=== PATIENT | male | born 1935 | race Caucasian/White ===

== ENCOUNTER 2017-11-28 19:14 | Inpatient (IN) | payer MEDICARE, OTHER ==
[~2017-11-28 19:14] MED LIST: ISOVUE-370 76%-LOCM 1 ML ONE; PHENYLEPHRINE-NS 100 MCG/ML 10 ML SYRINGE ONE
[2017-11-28] MEDS ORDERED: Succinylcholine Chloride 20 MG/ML 10 ml SYRINGE FS ONE (19:15)
[2017-11-28 19:28] LABS: #Eosinphils 0.3 thou/uL (0.0-0.7); #Lymphocytes 3.6 thou/uL (1.20-3.40); #Monocytes 0.9 thou/uL (0.11-0.59); #Neutrophils 10.1 thou/uL (1.40-6.50); %Basophils 0.1 % (0.0-1.0); %Eosinophils 1.8 % (0.0-10.0); %Lymphocytes 24.4 % (21.0-51.0); %Monocytes 6.1 % (0.0-10.0); %Neutrophils 67.6 % (42.0-75.0); Hemoglobin 13.1 g/dL (14.0-18.0); Mean Corpuscular HGB CONC 32.2 g/dL (32.0-36.0); Mean Corpuscular Volume 99.5 fl (80.0-94.0); Mean Platelet Volume 6.4 fL (7.4-10.4); Platelet Count 312 thou/uL (130-400); RBC Distribution Width 14.2 % (11.5-14.5); Red Blood Cell (RBC) Count 4.09 mill/uL (4.70-6.10)
[2017-11-28 19:35] LABS: INR-International Normal Ratio 1.2; PTT 31.6 SEC (22.9-36.1)
[2017-11-28 19:41] LABS: ALT (SGPT) 98 U/L (8-55); AST (SGOT) 254 U/L (5-34); Alkaline Phosphatase 90 U/L (40-150); Anion Gap 12 mmol/L (10-20); BUN (Urea Nitrogen) 30 mg/dL (8.4-25.7); Bilirubin, Total 0.4 mg/dL (0.2-1.2); Calc. Creatinine Clearance 0 mL/min (70-130); Carbon Dioxide 24 mmol/L (23-31); Chloride 104 mmol/L (98-107); Estimated GFR-MDRD 50; Globulin 3.1 g/dL (2.4-3.5); Glucose 133 mg/dL (83-110); Potassium 4.7 mmol/L (3.5-5.1); Protein, Total 7.1 g/dL (5.8-8.1); Sodium 135 mmol/L (136-145)
[2017-11-28] MEDS ORDERED: Fentanyl 100 MCG/2 ML VIAL ONE ×3 (19:41→22:27)
[2017-11-28] MEDS ORDERED: Propofol 1,000 MG/100 ML VIAL IV ONE (19:41)
[2017-11-28 20:02] LABS: Bilirubin Negative (Negative); Blood, Urine Trace (Negative); Clarity CLEAR (Clear); Glucose, Urine (Dipstick) Negative (Negative); Leukocyte Negative (Negative); Nitrite Negative (Negative); Protein, Urine (Dipstick) Negative (Neg-Trace); Specific Gravity, Urine 1.007 (1.002-1.036); Urobilinogen 0.2 mg/dL (0.2-1.0)
[2017-11-28 20:04] LABS: Bacteria/HPF None Seen HPF (None Seen); Hyaline Casts/LPF 0-3 HYALINE CAST LPF (0-3 Hyaline); RBC/HPF 0-3 HPF (0-3); Squamous Epithelial 0-3 HPF (0-3); WBC/HPF 0-3 HPF (0-3)
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
[2017-11-28 20:26] LABS: Actual Bicarbonate (HCO3a) 23.7 mEq/L (22-26); Base Excess (BEa) -5.1 mEq/L (0 (+/-) 2.5); Calcium, Ionized 1.1 mmol/L (1.12-1.30); Hemoglobin (Hb) 11.5 g/dL (14.0-18.0)
[2017-11-28 20:30] LABS: CO2 Tension 63.4 mmHg (35.0-45.0); O2 Tension (PaO2) 542.9 mmHg (80.0-100.0); pH, Arterial 7.19 (7.35-7.45)
[2017-11-28 20:32] LABS: Analyzer IN Cardio ER; Puncture Site LR
[2017-11-28] MEDS ORDERED: CEFAZOLIN/Water 2 GM/20 ML SYRINGE ONE (21:03)
[2017-11-28] MEDS ORDERED: Calcium Chloride 1 GM/10 ML Abboject SYRINGE ONE (21:12)
[2017-11-28] MEDS ORDERED: Sodium Bicarb 50 MEQ/50 ML Abboject 8.4% SYRINGE ONE (21:12)
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
[2017-11-28 21:36] LABS: Actual Bicarbonate (HCO3a) 23.2 mEq/L (22-26); Base Excess (BEa) -2.5 mEq/L (0 (+/-) 2.5); CO2 Tension 44.2 mmHg (35.0-45.0); Calcium, Ionized 1.6 mmol/L (1.12-1.30); Hematocrit-ABG 34.7 % (42.0-52.0); Hemoglobin (Hb) 11.2 g/dL (14.0-18.0); O2 Tension (PaO2) 152.7 mmHg (80.0-100.0); pH, Arterial 7.34 (7.35-7.45)
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
[2017-11-28 21:38] LABS: Analyzer IN Cardio ER; Puncture Site LR
--- NOTE | 2017-11-28 21:40 | RAD ---
AP VIEW OF THE CHEST 11/28/17 INDICATION: Chest tube placement. COMPARISON: Prior exam dated 11/28/17. FINDINGS: ET tube tip is unchanged. There are bilateral chest tubes in place. There is a small residual right s ided pneumothorax. Tiny left apical pneumothorax persists. Chronic lung changes are similar. There ar e moderately displaced right 5th through 7th rib fractures. IMPRESSION: 1. Bilateral chest tubes. 2. Small residual bilateral pneumothoraces. 3. Right anterolateral 5th through 7th rib fractures. 4. Intubation. POS: [facility]
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
[2017-11-28] MEDS ORDERED: Sodium Chloride 0.9% 30 ML ONE ×2 (22:05→23:35)
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
[2017-11-28] MEDS ORDERED: Bacitracin Zinc Ointment 30 gm TUBE ONE (22:28)
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
[2017-11-28] MEDS ORDERED: Midazolam HCl 2 mg/2 ml Vial ONE (23:56)
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
[2017-11-29] MEDS ORDERED: HumaLOG 300 UNITS/3 ML VIAL SC PRN (00:52)
[2017-11-29] MEDS ORDERED: Ondansetron ODT 4 MG TAB PO PRN (00:52)
[2017-11-29] MEDS ORDERED: Dextrose 50% Abboject 50 ML SYRINGE SLOW IVP PRN (00:52)
[2017-11-29] MEDS ORDERED: Fentanyl 20 MCG/ML 250 ML IVPB SCH (00:52)
[2017-11-29] MEDS ORDERED: Promethazine HCl 25 MG/ML VIAL IM PRN (00:52)
[2017-11-29] MEDS ORDERED: CEFAZOLIN 1 GM in Sodium Chloride 0.9% 100 ML IVPB SCH (00:52)
[2017-11-29] MEDS ORDERED: Dextrose 5% in Water 1,000 ML IV PRN (00:52)
[2017-11-29] MEDS ORDERED: Ondansetron HCl/PF 4 MG/2 ML Vial IVP PRN (00:52)
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
[2017-11-29] MEDS ORDERED: Hydrocortisone Sod Succ/PF 100 mg/2 ml Vial IVP SCH (01:15)
[2017-11-29] MEDS ORDERED: Famotidine/PF 20 mg/2ml Vial SLOW IVP SCH (01:15)
[2017-11-29] MEDS ORDERED: Midazolam HCl 2 mg/2 ml Vial ONE (02:17)
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
[2017-11-29] MEDS ORDERED: PHENYLEPHRINE-NS 100 MCG/ML 10 ML SYRINGE ONE (02:23)
[2017-11-29] MEDS ORDERED: Hetastarch 6% 500 ML 500 ML ONE (02:28)
[2017-11-29] MEDS: Sodium Chloride 0.9% 1,000 ML IV SCH ×3 (03:05→20:41)
[2017-11-29] MEDS: fentaNYL Citrate/PF 2,000 MCG in Sodium Chloride 0.9% 60 ML IV SCH (03:21)
[2017-11-29] MEDS: Midazolam HCl 2 mg/2 ml Vial SLOW IVP PRN ×2 (03:31→19:27)
[2017-11-29 03:36] LABS: Actual Bicarbonate (HCO3a) 24.9 mEq/L (22-26); Base Excess (BEa) -4.1 mEq/L (0 (+/-) 2.5); Calcium, Ionized 1.4 mmol/L (1.12-1.30); Hematocrit-ABG 36.2 % (42.0-52.0); Hemoglobin (Hb) 11.2 g/dL (14.0-18.0)
[2017-11-29 03:43] LABS: Hemoglobin 11.2 g/dL (14.0-18.0); Platelet Count 151 thou/uL (130-400)
[2017-11-29 03:50] LABS: Anion Gap 11 mmol/L (10-20); BUN (Urea Nitrogen) 29 mg/dL (8.4-25.7); Calc. Creatinine Clearance 0 mL/min (70-130); Calcium 9.1 mg/dL (7.8-10.44); Carbon Dioxide 25 mmol/L (23-31); Chloride 106 mmol/L (98-107); Estimated GFR-MDRD 52; Glucose 130 mg/dL (83-110); Magnesium 1.7 mg/dL (1.6-2.6); Phosphorus 5.3 mg/dL (2.3-4.7); Potassium 4.7 mmol/L (3.5-5.1); Sodium 137 mmol/L (136-145)
[2017-11-29 03:56] LABS: CO2 Tension 66.7 mmHg (35.0-45.0); O2 Tension (PaO2) 548.1 mmHg (80.0-100.0); Puncture Site LBRACH; pH, Arterial 7.19 (7.35-7.45)
[2017-11-29 03:57] LABS: ALV-art Gradient 81.525 (0-20)
[2017-11-29] MEDS ORDERED: Sodium Chloride 0.9% 500 ML IV SCH ×2 (04:45→16:15)
[2017-11-29] MEDS: CEFAZOLIN 1 GM, Syringe 2.5 ML in Sterile Water 7.5 ML SLOW IVP SCH ×3 (04:48→20:32)
[2017-11-29] MEDS ORDERED: CEFAZOLIN/Water 2 GM/20 ML SYRINGE SLOW IVP SCH (05:00)
[2017-11-29] MEDS: Hydrocortisone Sod Succ/PF 100 mg/2 ml Vial IVP SCH ×4 (06:41→23:24)
[2017-11-29 07:12] LABS: Actual Bicarbonate (HCO3a) 22.8 mEq/L (22-26); Base Excess (BEa) -3.3 mEq/L (0 (+/-) 2.5); CO2 Tension 45.8 mmHg (35.0-45.0); Calcium, Ionized 1.3 mmol/L (1.12-1.30); Hematocrit-ABG 30.5 % (42.0-52.0); Hemoglobin (Hb) 9.3 g/dL (14.0-18.0); O2 Tension (PaO2) 127.9 mmHg (80.0-100.0); pH, Arterial 7.31 (7.35-7.45)
[2017-11-29 07:21] LABS: Puncture Site LBA
--- NOTE | 2017-11-29 08:40 | RAD ---
PORTABLE CHEST ONE VIEW: 11/29/2017 3:05 a.m. HISTORY: Chest tube placement. Respiratory failure. COMPARISON: Exam from the previous day. FINDINGS: Endotracheal tube, nasogastric tube, and bilateral chest tubes are again seen. Right-sided fifth thr ough seventh rib fractures are again noted. No definite pneumothorax is seen. There are mild bibasi lar infiltrates. POS: [facility]
--- NOTE | 2017-11-29 09:16 | RAD ---
RIGHT WRIST: FINDINGS: Five spot fluoroscopic intraoperative images of the right wrist demonstrate pinning of the distal rad ius and the carpal bones (capitate, scaphoid, lunate, triquetral, and pisiform). POS: [facility]
--- NOTE | 2017-11-29 09:17 | RAD ---
PORTABLE RIGHT ELBOW TWO VIEWS: FINDINGS: A cast is placed, which obscures bony detail. No definite displaced fracture or dislocation is seen. Subtle fractures may be missed on the study. POS: [facility]
--- NOTE | 2017-11-29 09:17 | RAD ---
LEFT ELBOW TWO VIEWS: HISTORY: Evaluate for fracture. FINDINGS: Soft tissue swelling is present posteriorly. Frontal view is suboptimal. No definite displaced frac ture or dislocation is seen. POS: [facility]
[2017-11-29 10:09] LABS: Hemoglobin 9.3 g/dL (14.0-18.0); Platelet Count 170 thou/uL (130-400)
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
[2017-11-29] MEDS: Acetaminophen 1,000 MG in Premix Bag 1 BAG IVPB SCH ×3 (12:07→23:24)
--- NOTE | 2017-11-29 13:16 | RAD ---
RADIOGRAPH CHEST 1 VIEW: Date: 11/29/2017 Time: 12:14 p.m. HISTORY: An 82-year-old male status post central line placement. COMPARISON: 11/29/2017 at 3:04 a.m. FINDINGS: There is a new right subclavian central vascular catheter with the distal tip overlying the mid to lo wer portion of the SVC. This is a supine image, which would be insensitive for pneumothorax detectio n. The bilateral chest tubes remain. The previously described bilateral pulmonary densities remain. Endotracheal tube and NG tube remain. IMPRESSION: 1. Interval placement of right-sided central venous catheter. 2. No other interval change. GRISEL [] POS: [facility]
[2017-11-29] MEDS ORDERED: Norepinephrine 8 MG/0.9% NS 0 ML ONE (13:17)
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
[2017-11-29 14:46] LABS: Platelet Count 134 thou/uL (130-400)
[2017-11-29] MEDS ORDERED: Calcium Chloride 1 GM/10 ML Abboject SYRINGE IVP SCH (15:30)
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
[2017-11-29] MEDS ORDERED: Sodium Chloride 0.9% 500 ML IVPB SCH ×2 (20:15→20:30)
[2017-11-29] MEDS: Famotidine/PF 20 mg/2ml Vial SLOW IVP SCH (20:28)
[2017-11-29 21:34] LABS: #Lymphocytes 0.4 thou/uL (1.20-3.40); #Monocytes 0.6 thou/uL (0.11-0.59); %Basophils 0.3 % (0.0-1.0); %Eosinophils 0.1 % (0.0-10.0); %Lymphocytes 6.3 % (21.0-51.0); %Neutrophils 84.4 % (42.0-75.0); Hemoglobin 8.3 g/dL (14.0-18.0); Mean Corpuscular HGB CONC 33.5 g/dL (32.0-36.0); Mean Corpuscular Hemoglobin 32.4 pg (27.0-31.0); Mean Corpuscular Volume 96.6 fl (80.0-94.0); Mean Platelet Volume 6.7 fL (7.4-10.4); Platelet Count 129 thou/uL (130-400); RBC Distribution Width 15.8 % (11.5-14.5); Red Blood Cell (RBC) Count 2.57 mill/uL (4.70-6.10); White Blood Cell (WBC) Count 7.1 thou/uL (4.8-10.8)
[2017-11-30] MEDS: fentaNYL Citrate/PF 2,000 MCG in Sodium Chloride 0.9% 60 ML IV SCH (00:10)
[2017-11-30] MEDS: CEFAZOLIN 1 GM, Syringe 2.5 ML in Sterile Water 7.5 ML SLOW IVP SCH ×3 (05:36→20:20)
[2017-11-30] MEDS: Hydrocortisone Sod Succ/PF 100 mg/2 ml Vial IVP SCH ×4 (05:37→23:01)
[2017-11-30] MEDS: Acetaminophen 1,000 MG in Premix Bag 1 BAG IVPB SCH ×2 (05:37→12:27)
[2017-11-30] MEDS: Sodium Chloride 0.9% 1,000 ML IV SCH ×3 (05:45→22:53)
[2017-11-30] MEDS ORDERED: Midazolam HCl 2 mg/2 ml Vial ONE (08:02)
[2017-11-30 08:31] LABS: #Lymphocytes 0.7 thou/uL (1.20-3.40); #Monocytes 0.7 thou/uL (0.11-0.59); #Neutrophils 5.1 thou/uL (1.40-6.50); %Basophils 0.1 % (0.0-1.0); %Eosinophils 0.2 % (0.0-10.0); %Lymphocytes 10.3 % (21.0-51.0); %Monocytes 10.8 % (0.0-10.0); %Neutrophils 78.7 % (42.0-75.0); Hemoglobin 8.1 g/dL (14.0-18.0); Mean Corpuscular HGB CONC 31.3 g/dL (32.0-36.0); Mean Corpuscular Hemoglobin 30.3 pg (27.0-31.0); Mean Corpuscular Volume 96.8 fl (80.0-94.0); Mean Platelet Volume 7.1 fL (7.4-10.4); Platelet Count 133 thou/uL (130-400); RBC Distribution Width 15.9 % (11.5-14.5); Red Blood Cell (RBC) Count 2.67 mill/uL (4.70-6.10); White Blood Cell (WBC) Count 6.5 thou/uL (4.8-10.8)
[2017-11-30 08:44] LABS: Anion Gap 10 mmol/L (10-20); BUN (Urea Nitrogen) 24 mg/dL (8.4-25.7); Calc. Creatinine Clearance 64 mL/min (70-130); Calcium 8.3 mg/dL (7.8-10.44); Carbon Dioxide 22 mmol/L (23-31); Chloride 112 mmol/L (98-107); Estimated GFR-MDRD 61; Glucose 126 mg/dL (83-110); Sodium 140 mmol/L (136-145)
--- NOTE | 2017-11-30 08:54 | RAD ---
PORTABLE CHEST 1 VIEW: DATE: 11/30/17. TIME: 4:38 a.m. HISTORY: Respiratory failure. FINDINGS: Increased density was seen in the lower lung cordova since the previous day's exam. The remainder of the exam is otherwise stable. POS: [facility]
[2017-11-30] MEDS ORDERED: Albumin 5% 500 ML ONE (09:35)
[2017-11-30] MEDS ORDERED: Bacitracin Zinc Ointment 30 gm TUBE ONE (10:24)
[2017-11-30] MEDS ORDERED: Fentanyl 100 MCG/2 ML VIAL ONE (10:32)
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
--- NOTE | 2017-11-30 11:39 | RAD ---
PORTABLE CHEST 1 VIEW: DATE: 11/30/17. TIME: 10:57 a.m. HISTORY: Respiratory failure. FINDINGS/IMPRESSION: Comparison is made to the exam of 4:38 a.m. from the same date. Line and tube placements are unchanged in position. The heart is enlarged. There are bibasilar infi ltrates and accompanying probable small effusions. No pneumothoraces are seen. POS: [facility]
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
[2017-11-30] MEDS ORDERED: Vecuronium 10 MG VIAL ONE (12:15)
[2017-11-30] MEDS: Midazolam HCl 2 mg/2 ml Vial SLOW IVP PRN ×2 (12:25→23:00)
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
--- NOTE | 2017-11-30 17:49 | OP ---
DATE OF PROCEDURE: 11/30/2017 PREOPERATIVE DIAGNOSES: 1. Right open injuries only to his digit, small finger, ring finger metacarpophalangeal joint, long finger metacarpophalangeal joint, and proximal phalangeal joint. 2. Complex transscaphoid lunate transstyloid fracture dislocation. 3. On the right and on the left, multiple small punctate lesions from glass with a small avulsion of f the fracture of the hemibody with no subluxations. POSTOPERATIVE DIAGNOSES: 1. Right open injuries only to his digit, small finger, ring finger metacarpophalangeal joint, long finger metacarpophalangeal joint, and proximal phalangeal joint. 2. Complex transscaphoid lunate transstyloid fracture dislocation. 3. On the right and on the left, multiple small punctate lesions from glass with a small avulsion of f the fracture of the hemibody with no subluxations. FINDINGS: 1. Cutaneous vasoconstriction again seen at both upper extremities and the left lower extremity of t he patient secondary to intraoperative room hypothermia. 2. No infection, abscess, or hematoma seen at the digit wounds or his right wrist and no such findin gs at the left upper extremity. PROCEDURES PERFORMED: Left upper extremity: 1. Dressing change on anesthesia. 2. Application of a splint ulnar gutter and close treatment of hamate fracture. On the right side: 1. Dressing change on anesthesia. 2. Application of long arm splint. DESCRIPTION OF PROCEDURE: After successful general endotracheal anesthesia, we transferred the patie nt onto the fracture table for his intramedullary tu and before the tu we changed the dressing on t he left side and applied an ulnar gutter splint with the PIP joint of the small and ring involved wit h the other digits free. Then, after the procedure, we changed the dressing and sterile conditions on the right side, placed A daptic, bacitracin, 4x4's, Kerlix, and then another sugar tong splint on the wound, and the wrist was stable grossly. I placed him in slight palmar flexion approximately 15 degrees with the digits cove red with the bulky hand dressing. He has some cutaneous vasoconstriction initially, but once his rothman d warmed and we left the cold intraoperative environment, his digits became pink with normal color an d capillary refill in the Intensive Care Unit.
[2017-11-30 18:14] LABS: Actual Bicarbonate (HCO3a) 20.5 mEq/L (22-26); Base Excess (BEa) -4.5 mEq/L (0 (+/-) 2.5); CO2 Tension 36.6 mmHg (35.0-45.0); Calcium, Ionized 1.1 mmol/L (1.12-1.30); Hematocrit-ABG 20.5 % (42.0-52.0); Hemoglobin (Hb) 6.8 g/dL (14.0-18.0); O2 Tension (PaO2) 93.2 mmHg (80.0-100.0); pH, Arterial 7.37 (7.35-7.45)
[2017-11-30 18:16] LABS: Puncture Site LINE
[2017-11-30] MEDS ORDERED: Calcium Chloride 1 GM/10 ML Abboject SYRINGE IVP SCH (19:15)
[2017-11-30] MEDS: Famotidine/PF 20 mg/2ml Vial SLOW IVP SCH (20:20)
[2017-12-01] MEDS: fentaNYL Citrate/PF 2,000 MCG in Sodium Chloride 0.9% 60 ML IV SCH ×2 (00:15→15:10)
[2017-12-01 05:24] LABS: #Lymphocytes 0.7 thou/uL (1.20-3.40); #Monocytes 0.8 thou/uL (0.11-0.59); #Neutrophils 7.7 thou/uL (1.40-6.50); %Basophils 0.1 % (0.0-1.0); %Eosinophils 0.2 % (0.0-10.0); %Lymphocytes 7.2 % (21.0-51.0); %Monocytes 8.3 % (0.0-10.0); %Neutrophils 84.1 % (42.0-75.0); Hemoglobin 8.5 g/dL (14.0-18.0); Mean Corpuscular Volume 96.9 fl (80.0-94.0); Mean Platelet Volume 6.7 fL (7.4-10.4); Platelet Count 163 thou/uL (130-400); RBC Distribution Width 15.3 % (11.5-14.5); Red Blood Cell (RBC) Count 2.75 mill/uL (4.70-6.10); White Blood Cell (WBC) Count 9.2 thou/uL (4.8-10.8)
[2017-12-01 05:37] LABS: Anion Gap 10 mmol/L (10-20); BUN (Urea Nitrogen) 19 mg/dL (8.4-25.7); Calc. Creatinine Clearance 75 mL/min (70-130); Calcium 8.5 mg/dL (7.8-10.44); Carbon Dioxide 22 mmol/L (23-31); Chloride 113 mmol/L (98-107); Estimated GFR-MDRD 74; Glucose 104 mg/dL (83-110); Magnesium 1.9 mg/dL (1.6-2.6); Potassium 4.2 mmol/L (3.5-5.1); Sodium 141 mmol/L (136-145)
[2017-12-01] MEDS: CEFAZOLIN 1 GM, Syringe 2.5 ML in Sterile Water 7.5 ML SLOW IVP SCH ×3 (05:45→21:51)
[2017-12-01] MEDS: Sodium Chloride 0.9% 1,000 ML IV SCH ×2 (06:12→22:30)
[2017-12-01 06:34] LABS: ALV-art Gradient 157.825 (0-20); Actual Bicarbonate (HCO3a) 20.5 mEq/L (22-26); Base Excess (BEa) -4.9 mEq/L (0 (+/-) 2.5); CO2 Tension 39.1 mmHg (35.0-45.0); Calcium, Ionized 1.2 mmol/L (1.12-1.30); Hematocrit-ABG 22.9 % (42.0-52.0); Hemoglobin (Hb) 7.6 g/dL (14.0-18.0); O2 Tension (PaO2) 83.7 mmHg (80.0-100.0); Puncture Site ALINE; pH, Arterial 7.34 (7.35-7.45)
[2017-12-01] MEDS: Hydrocortisone Sod Succ/PF 100 mg/2 ml Vial IVP SCH ×3 (06:48→18:52)
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
[2017-12-01] MEDS: Propofol 1,000 MG/100 ML VIAL IV PRN (13:12)
--- NOTE | 2017-12-01 14:00 | RAD ---
PORTABLE CHEST 1 VIEW: DATE: 12/01/17. TIME: 4:45 a.m. HISTORY: Respiratory failure. FINDINGS: Comparison is made with the exam of previous day. Line and tube placements are unchanged in position . Increased airspace opacities are seen in the lower lung cordova with accompanying effusions. POS: [facility]
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
[2017-12-01] MEDS: Famotidine/PF 20 mg/2ml Vial SLOW IVP SCH (21:51)
[2017-12-02] MEDS: Hydrocortisone Sod Succ/PF 100 mg/2 ml Vial IVP SCH ×4 (00:51→18:00)
[2017-12-02] MEDS: Propofol 1,000 MG/100 ML VIAL IV PRN ×2 (04:13→21:31)
[2017-12-02] MEDS: CEFAZOLIN 1 GM, Syringe 2.5 ML in Sterile Water 7.5 ML SLOW IVP SCH ×3 (04:14→21:44)
[2017-12-02 04:32] LABS: #Lymphocytes 0.8 thou/uL (1.20-3.40); #Monocytes 0.7 thou/uL (0.11-0.59); #Neutrophils 6.7 thou/uL (1.40-6.50); %Eosinophils 0.3 % (0.0-10.0); %Lymphocytes 9.3 % (21.0-51.0); %Monocytes 8.7 % (0.0-10.0); %Neutrophils 81.6 % (42.0-75.0); Mean Corpuscular HGB CONC 33.1 g/dL (32.0-36.0); Mean Corpuscular Hemoglobin 32.1 pg (27.0-31.0); Mean Corpuscular Volume 96.8 fl (80.0-94.0); Mean Platelet Volume 6.9 fL (7.4-10.4); Platelet Count 186 thou/uL (130-400); RBC Distribution Width 15.4 % (11.5-14.5); White Blood Cell (WBC) Count 8.3 thou/uL (4.8-10.8)
[2017-12-02 04:56] LABS: Anion Gap 10 mmol/L (10-20); BUN (Urea Nitrogen) 24 mg/dL (8.4-25.7); Calc. Creatinine Clearance 71 mL/min (70-130); Calcium 8.2 mg/dL (7.8-10.44); Carbon Dioxide 21 mmol/L (23-31); Chloride 115 mmol/L (98-107); Estimated GFR-MDRD 66; Glucose 104 mg/dL (83-110); Magnesium 2.1 mg/dL (1.6-2.6); Phosphorus 2.1 mg/dL (2.3-4.7); Potassium 4.2 mmol/L (3.5-5.1); Sodium 142 mmol/L (136-145)
[2017-12-02] MEDS: Sodium Chloride 0.9% 1,000 ML IV SCH ×3 (05:13→21:31)
--- NOTE | 2017-12-02 09:01 | RAD ---
PORTABLE FRONTAL CHEST RADIOGRAPH: Date: 12-02-2017 Comparison: 12-01-17 History: Evaluate chest tube, intubated patient. FINDINGS: Endotracheal tube terminates at the level of the clavicular heads, stable. Nasogastric tube extends i nto epigastric region. Stable right sided vascular catheter. There is dense opacity in bilateral lung bases, suggesting combination of bibasilar consolidation/col lapse and small bilateral pleural effusions. Stable inferior left sided chest tube present curling me dially, possibly kinked and unchanged. Stable right sided chest tube overlies the apex. Multiple righ t sided rib fractures are noted. IMPRESSION: No significant interval change. POS: [facility]
[2017-12-02] MEDS: fentaNYL Citrate/PF 2,000 MCG in Sodium Chloride 0.9% 60 ML IV SCH ×2 (09:55→21:31)
[2017-12-02] MEDS ORDERED: Midazolam HCl 2 mg/2 ml Vial ONE (14:07)
[2017-12-02] MEDS ORDERED: Fentanyl 100 MCG/2 ML VIAL ONE ×3 (14:08→20:24)
[2017-12-02] MEDS ORDERED: PHENYLEPHRINE-NS 100 MCG/ML 10 ML SYRINGE ONE (17:16)
[2017-12-02] MEDS ORDERED: Propofol 200 MG/20 ML VIAL ONE (17:16)
[2017-12-02] MEDS ORDERED: Sodium Bicarb 50 MEQ/50 ML Abboject 8.4% SYRINGE ONE ×2 (17:17→19:28)
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
[2017-12-02] MEDS ORDERED: Rocuronium Bromide 50 MG/5 ML VIAL ONE (17:43)
[2017-12-02] MEDS ORDERED: Bacitracin Zinc Ointment 30 gm TUBE ONE (18:25)
[2017-12-02] MEDS ORDERED: Sodium Chloride 0.9% 10 ML ONE (18:27)
[2017-12-02 19:17] LABS: Actual Bicarbonate (HCO3a) 17.8 mEq/L (22-26); Base Excess (BEa) -8.2 mEq/L (0 (+/-) 2.5); CO2 Tension 38.6 mmHg (35.0-45.0); Calcium, Ionized 1.2 mmol/L (1.12-1.30); Hematocrit-ABG 16.8 % (42.0-52.0); Hemoglobin (Hb) 5.7 g/dL (14.0-18.0); O2 Tension (PaO2) 128.3 mmHg (80.0-100.0); Puncture Site ALINE; pH, Arterial 7.28 (7.35-7.45)
[2017-12-02] MEDS ORDERED: Sodium Bicarbonate 2.4 MEQ/5 ML ONE (19:28)
[2017-12-02] MEDS ORDERED: Bupivacaine PF 0.5% 30 ML VIAL ONE (20:01)
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
[2017-12-02] MEDS: Famotidine/PF 20 mg/2ml Vial SLOW IVP SCH (21:31)
--- NOTE | 2017-12-02 21:53 | RAD ---
EXAM: INTRAOPERATIVE FLUOROSCOPY 12/02/17 HISTORY: ORIF COMPARISON: None. FINDINGS: Internal fixation hardware and fractures are noted. Fluoroscopic time is 5.1 seconds. Total dose is 0.12 mGy. IMPRESSION: Intraoperative fluoroscopy as above. POS: [facility]
[2017-12-02 21:55] LABS: Hemoglobin 8.7 g/dL (14.0-18.0)
--- NOTE | 2017-12-02 21:59 | RAD ---
EXAM: INTRAOPERATIVE FLUOROSCOPY 12/02/17 HISTORY: Fracture. COMPARISON: None. FINDINGS: Multiple K-wires and screws are identified projecting over the proximal and distal carpal rows as wel l as the distal radius. EXPOSURE: 115.2 seconds. 2.38 mGy. IMPRESSION: Intraoperative fluoroscopy as above. POS: [facility]
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
[2017-12-03] MEDS: Hydrocortisone Sod Succ/PF 100 mg/2 ml Vial IVP SCH ×4 (00:50→18:05)
[2017-12-03 05:14] LABS: #Eosinphils 0.1 thou/uL (0.0-0.7); #Lymphocytes 0.9 thou/uL (1.20-3.40); #Neutrophils 6.3 thou/uL (1.40-6.50); %Basophils 0.3 % (0.0-1.0); %Lymphocytes 11.1 % (21.0-51.0); %Monocytes 11.7 % (0.0-10.0); Hemoglobin 7.9 g/dL (14.0-18.0); Mean Corpuscular HGB CONC 32.4 g/dL (32.0-36.0); Mean Corpuscular Hemoglobin 31.6 pg (27.0-31.0); Mean Corpuscular Volume 97.5 fl (80.0-94.0); Mean Platelet Volume 6.5 fL (7.4-10.4); Platelet Count 214 thou/uL (130-400); RBC Distribution Width 15.4 % (11.5-14.5); Red Blood Cell (RBC) Count 2.48 mill/uL (4.70-6.10); White Blood Cell (WBC) Count 8.3 thou/uL (4.8-10.8)
[2017-12-03 05:22] LABS: Anion Gap 12 mmol/L (10-20); BUN (Urea Nitrogen) 28 mg/dL (8.4-25.7); Calc. Creatinine Clearance 69 mL/min (70-130); Calcium 7.9 mg/dL (7.8-10.44); Carbon Dioxide 19 mmol/L (23-31); Chloride 117 mmol/L (98-107); Estimated GFR-MDRD 62; Glucose 105 mg/dL (83-110); Magnesium 2.3 mg/dL (1.6-2.6); Potassium 4.1 mmol/L (3.5-5.1); Sodium 144 mmol/L (136-145)
[2017-12-03 05:24] LABS: Phosphorus 1.9 mg/dL (2.3-4.7)
[2017-12-03] MEDS: CEFAZOLIN 1 GM, Syringe 2.5 ML in Sterile Water 7.5 ML SLOW IVP SCH ×3 (05:40→21:20)
[2017-12-03] MEDS ORDERED: Potassium Phosphate 12 MMOL in Sodium Chloride 0.9% 100 ML IVPB SCH (06:45)
[2017-12-03] MEDS: Sodium Chloride 0.9% 1,000 ML IV SCH ×2 (07:37→21:21)
--- NOTE | 2017-12-03 08:53 | RAD ---
PORTABLE CHEST ONE VIEW: Date: 12-03-17 Time: 4:18 a.m. History: Respiratory failure. FINDINGS/IMPRESSION: No significant interval change since the previous day's exam. POS: [facility]
[2017-12-03] MEDS: Propofol 1,000 MG/100 ML VIAL IV PRN ×2 (11:31→18:11)
[2017-12-03] MEDS: fentaNYL Citrate/PF 2,000 MCG in Sodium Chloride 0.9% 60 ML IV SCH (14:06)
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
[2017-12-03] MEDS: Polyethylene Glycol 3350 17 GM Packet PER TUBE SCH (14:18)
[2017-12-03] MEDS: Acetylcysteine 10% 100 MG/ML 30 ml Vial PO SCH (18:32)
[2017-12-03] MEDS: Famotidine/PF 20 mg/2ml Vial SLOW IVP SCH (21:36)
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
[2017-12-04] MEDS: Hydrocortisone Sod Succ/PF 100 mg/2 ml Vial IVP SCH ×4 (00:28→17:41)
[2017-12-04] MEDS: Propofol 1,000 MG/100 ML VIAL IV PRN (02:44)
[2017-12-04 05:02] LABS: #Eosinphils 0.1 thou/uL (0.0-0.7); #Lymphocytes 0.8 thou/uL (1.20-3.40); #Monocytes 0.8 thou/uL (0.11-0.59); #Neutrophils 6.2 thou/uL (1.40-6.50); %Lymphocytes 9.8 % (21.0-51.0); %Monocytes 10.5 % (0.0-10.0); %Neutrophils 78.7 % (42.0-75.0); Hemoglobin 8.2 g/dL (14.0-18.0); Mean Corpuscular Hemoglobin 32.3 pg (27.0-31.0); Mean Corpuscular Volume 97.7 fl (80.0-94.0); Platelet Count 252 thou/uL (130-400); RBC Distribution Width 15.4 % (11.5-14.5); Red Blood Cell (RBC) Count 2.53 mill/uL (4.70-6.10); White Blood Cell (WBC) Count 7.9 thou/uL (4.8-10.8)
[2017-12-04 05:28] LABS: Anion Gap 9 mmol/L (10-20); BUN (Urea Nitrogen) 29 mg/dL (8.4-25.7); Calc. Creatinine Clearance 80 mL/min (70-130); Calcium 7.9 mg/dL (7.8-10.44); Carbon Dioxide 23 mmol/L (23-31); Chloride 118 mmol/L (98-107); Estimated GFR-MDRD 73; Glucose 144 mg/dL (83-110); Magnesium 2.2 mg/dL (1.6-2.6); Potassium 3.9 mmol/L (3.5-5.1); Sodium 146 mmol/L (136-145)
[2017-12-04] MEDS: CEFAZOLIN 1 GM, Syringe 2.5 ML in Sterile Water 7.5 ML SLOW IVP SCH ×3 (05:50→21:26)
[2017-12-04 06:04] LABS: Phosphorus 1.7 mg/dL (2.3-4.7)
[2017-12-04] MEDS: Sodium Chloride 0.9% 1,000 ML IV SCH (06:13)
[2017-12-04] MEDS ORDERED: Potassium Phosphate 30 MMOL in Sodium Chloride 0.9% 250 ML 250 ML IVPB SCH (07:00)
[2017-12-04] MEDS: Acetylcysteine 10% 100 MG/ML 30 ml Vial PO SCH (08:14)
[2017-12-04] MEDS ORDERED: Sodium Chloride 0.45% 1,000 ML IV SCH (08:15)
[2017-12-04] MEDS: Senokot S 8.6-50 MG TAB PO SCH ×2 (08:33→22:28)
[2017-12-04] MEDS: Polyethylene Glycol 3350 17 GM Packet PER TUBE SCH (08:33)
--- NOTE | 2017-12-04 08:39 | RAD ---
PORTABLE CHEST 1 VIEW: DATE: 12/04/17. TIME: 5:04 a.m. HISTORY: Respiratory failure. FINDINGS/IMPRESSION: No significant interval change is seen since the previous day's exam. POS: [facility]
[2017-12-04] MEDS ORDERED: Enoxaparin Sodium 40 MG/0.4 ML SYRINGE SC SCH (09:45)
[2017-12-04] MEDS: hydrALAZINE 20 MG/ML VIAL SLOW IVP PRN (10:15)
[2017-12-04] MEDS ORDERED: Fentanyl 100 MCG/2 ML VIAL ONE (11:25)
[2017-12-04] MEDS ORDERED: Furosemide 20 MG/2 ML VIAL SLOW IVP SCH ×2 (11:45→23:59)
[2017-12-04] MEDS ORDERED: Potassium Phosphate 30 MMOL in Sodium Chloride 0.9% 500 ML IVPB SCH (11:45)
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
[2017-12-04] MEDS: fentaNYL Citrate/PF 2,000 MCG in Sodium Chloride 0.9% 60 ML IV SCH (12:27)
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
--- NOTE | 2017-12-04 13:40 | RAD ---
INTRAOPERATIVE RADIOGRAPH OF RIGHT FEMUR: Date: 11-28-17 History: Right femur fracture. FINDINGS: A single coned-down radiograph overlying the right femoral shaft demonstrates a fracture which is com minuted and obliquely oriented. Partially visualized external fixator overlies the femur fracture. IMPRESSION: Intraoperative exam as detailed above. POS: [facility]
[2017-12-04] MEDS: Furosemide 20 MG/2 ML VIAL SLOW IVP SCH (14:40)
[2017-12-04] MEDS ORDERED: Acetaminophen 1,000 MG in Premix Bag 1 BAG IVPB SCH (17:30)
[2017-12-04] MEDS ORDERED: Ketorolac Tromethamine 30 MG/ML VIAL IVP SCH (17:30)
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
[2017-12-04] MEDS: Famotidine 40 MG/4 ML VIAL SLOW IVP SCH (21:27)
[2017-12-04] MEDS ORDERED: fentaNYL Citrate/PF 2,000 MCG in Sodium Chloride 0.9% 60 ML IV PRN (23:00)
[2017-12-05] MEDS: Hydrocortisone Sod Succ/PF 100 mg/2 ml Vial IVP SCH ×4 (00:18→17:56)
[2017-12-05] MEDS: Acetaminophen 1,000 MG in Premix Bag 1 BAG IVPB SCH ×4 (00:18→17:55)
[2017-12-05] MEDS: Ketorolac Tromethamine 30 MG/ML VIAL IVP SCH ×4 (00:19→17:56)
[2017-12-05] MEDS: Acetylcysteine 10% 100 MG/ML 30 ml Vial NEB SCH ×4 (01:56→18:48)
[2017-12-05 05:18] LABS: #Eosinphils 0.1 thou/uL (0.0-0.7); #Lymphocytes 0.7 thou/uL (1.20-3.40); #Monocytes 0.7 thou/uL (0.11-0.59); #Neutrophils 6.7 thou/uL (1.40-6.50); %Basophils 0.2 % (0.0-1.0); %Eosinophils 0.8 % (0.0-10.0); %Monocytes 8.9 % (0.0-10.0); %Neutrophils 81.1 % (42.0-75.0); Hemoglobin 8.6 g/dL (14.0-18.0); Mean Corpuscular HGB CONC 32.2 g/dL (32.0-36.0); Mean Corpuscular Hemoglobin 31.6 pg (27.0-31.0); Mean Platelet Volume 6.7 fL (7.4-10.4); Platelet Count 294 thou/uL (130-400); RBC Distribution Width 15.5 % (11.5-14.5); Red Blood Cell (RBC) Count 2.73 mill/uL (4.70-6.10); White Blood Cell (WBC) Count 8.2 thou/uL (4.8-10.8)
[2017-12-05 05:43] LABS: Anion Gap 12 mmol/L (10-20); BUN (Urea Nitrogen) 34 mg/dL (8.4-25.7); Calc. Creatinine Clearance 73 mL/min (70-130); Calcium 8.2 mg/dL (7.8-10.44); Carbon Dioxide 28 mmol/L (23-31); Chloride 112 mmol/L (98-107); Estimated GFR-MDRD 65; Glucose 125 mg/dL (83-110); Magnesium 2.2 mg/dL (1.6-2.6); Phosphorus 3.2 mg/dL (2.3-4.7); Potassium 4.1 mmol/L (3.5-5.1); Sodium 148 mmol/L (136-145)
[2017-12-05] MEDS: CEFAZOLIN 1 GM, Syringe 2.5 ML in Sterile Water 7.5 ML SLOW IVP SCH (05:46)
[2017-12-05] MEDS: Furosemide 20 MG/2 ML VIAL SLOW IVP SCH ×4 (05:46→21:50)
[2017-12-05] MEDS: Senokot S 8.6-50 MG TAB PO SCH ×2 (08:08→21:49)
[2017-12-05] MEDS: Polyethylene Glycol 3350 17 GM Packet PER TUBE SCH (08:08)
[2017-12-05] MEDS ORDERED: Enoxaparin Sodium 40 MG/0.4 ML SYRINGE SC SCH (09:00)
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
[2017-12-05] MEDS ORDERED: HYDROcodone/Acetaminophen 10/325 mg Tablet PO PRN (09:12)
[2017-12-05] MEDS: HYDROcodone/Acetaminophen 10/325 mg Tablet PO SCH ×4 (10:02→21:50)
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
[2017-12-05] MEDS: Ascorbic Acid 500 mg Chewable Tablet PO SCH (16:31)
[2017-12-05] MEDS: Ferrous Sulfate 325 MG TAB PO SCH (16:31)
[2017-12-05] MEDS: Famotidine 40 MG/4 ML VIAL SLOW IVP SCH (21:50)
[2017-12-06] MEDS: Ketorolac Tromethamine 30 MG/ML VIAL IVP SCH ×4 (00:54→17:55)
[2017-12-06] MEDS: Hydrocortisone Sod Succ/PF 100 mg/2 ml Vial IVP SCH ×4 (00:54→17:56)
[2017-12-06] MEDS: Acetaminophen 1,000 MG in Premix Bag 1 BAG IVPB SCH (00:56)
[2017-12-06] MEDS: HYDROcodone/Acetaminophen 10/325 mg Tablet PO SCH ×6 (01:09→22:05)
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
[2017-12-06] MEDS: Furosemide 20 MG/2 ML VIAL SLOW IVP SCH ×3 (04:42→17:55)
[2017-12-06 05:42] LABS: Anion Gap 11 mmol/L (10-20); BUN (Urea Nitrogen) 35 mg/dL (8.4-25.7); Calc. Creatinine Clearance 77 mL/min (70-130); Carbon Dioxide 28 mmol/L (23-31); Chloride 104 mmol/L (98-107); Estimated GFR-MDRD 68; Glucose 112 mg/dL (83-110); Magnesium 2.1 mg/dL (1.6-2.6); Potassium 3.8 mmol/L (3.5-5.1); Sodium 139 mmol/L (136-145)
[2017-12-06] MEDS: Ferrous Sulfate 325 MG TAB PO SCH ×2 (08:54→17:55)
[2017-12-06] MEDS: Polyethylene Glycol 3350 17 GM Packet PER TUBE SCH (08:54)
[2017-12-06] MEDS: Senokot S 8.6-50 MG TAB PO SCH ×2 (08:54→20:24)
[2017-12-06] MEDS: Ascorbic Acid 500 mg Chewable Tablet PO SCH ×2 (08:54→17:55)
[2017-12-06] MEDS: Enoxaparin Sodium 40 MG/0.4 ML SYRINGE SC SCH (08:55)
[2017-12-06] MEDS ORDERED: Potassium Chloride 40 MEQ in Sodium Chloride 0.9% 500 ML IVPB SCH (10:30)
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
[2017-12-06] MEDS: Acetylcysteine 10% 100 MG/ML 30 ml Vial NEB SCH ×3 (11:42→22:05)
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
[2017-12-06] MEDS: Famotidine 40 MG/4 ML VIAL SLOW IVP SCH (20:24)
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
[2017-12-07] MEDS: Hydrocortisone Sod Succ/PF 100 mg/2 ml Vial IVP SCH ×4 (00:47→16:57)
[2017-12-07] MEDS: Ketorolac Tromethamine 30 MG/ML VIAL IVP SCH ×4 (00:48→16:58)
[2017-12-07] MEDS: HYDROcodone/Acetaminophen 10/325 mg Tablet PO SCH ×6 (00:49→21:39)
[2017-12-07] MEDS: Furosemide 20 MG/2 ML VIAL SLOW IVP SCH (02:19)
[2017-12-07] MEDS: Acetylcysteine 10% 100 MG/ML 30 ml Vial NEB SCH ×2 (07:46→18:36)
[2017-12-07] MEDS: Ferrous Sulfate 325 MG TAB PO SCH ×2 (10:01→16:56)
[2017-12-07] MEDS: Ascorbic Acid 500 mg Chewable Tablet PO SCH ×2 (10:01→16:56)
[2017-12-07] MEDS: Polyethylene Glycol 3350 17 GM Packet PER TUBE SCH (10:02)
[2017-12-07] MEDS: Enoxaparin Sodium 40 MG/0.4 ML SYRINGE SC SCH (10:02)
[2017-12-07] MEDS: Senokot S 8.6-50 MG TAB PO SCH ×2 (10:02→21:36)
[2017-12-07] MEDS ORDERED: Furosemide 20 MG TAB PO SCH (12:00)
[2017-12-07] MEDS ORDERED: Metolazone 5 MG TAB PO SCH (16:00)
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
[2017-12-07] MEDS: Famotidine 40 MG/4 ML VIAL SLOW IVP SCH (21:36)
[2017-12-07] MEDS: Furosemide 40 MG TAB PO SCH (21:36)
[2017-12-07] MEDS ORDERED: Ketorolac Tromethamine 30 MG/ML VIAL IVP SCH (23:45)
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
[2017-12-08] MEDS: Hydrocortisone Sod Succ/PF 100 mg/2 ml Vial IVP SCH ×4 (00:19→17:18)
[2017-12-08] MEDS: Ketorolac Tromethamine 30 MG/ML VIAL IVP SCH ×2 (00:21→05:52)
[2017-12-08] MEDS: HYDROcodone/Acetaminophen 10/325 mg Tablet PO SCH ×6 (01:13→20:47)
[2017-12-08] MEDS: Furosemide 40 MG TAB PO SCH ×3 (04:27→14:45)
[2017-12-08 06:07] LABS: #Eosinphils 0.3 thou/uL (0.0-0.7); #Lymphocytes 1.2 thou/uL (1.20-3.40); #Monocytes 0.9 thou/uL (0.11-0.59); %Basophils 0.2 % (0.0-1.0); %Eosinophils 2.2 % (0.0-10.0); %Lymphocytes 10.3 % (21.0-51.0); %Neutrophils 79.3 % (42.0-75.0); Hemoglobin 10.4 g/dL (14.0-18.0); Mean Corpuscular Hemoglobin 31.6 pg (27.0-31.0); Mean Corpuscular Volume 98.6 fl (80.0-94.0); Mean Platelet Volume 6.2 fL (7.4-10.4); Platelet Count 390 thou/uL (130-400); RBC Distribution Width 16.6 % (11.5-14.5); Red Blood Cell (RBC) Count 3.31 mill/uL (4.70-6.10); White Blood Cell (WBC) Count 11.3 thou/uL (4.8-10.8)
[2017-12-08 06:32] LABS: Anion Gap 15 mmol/L (10-20); BUN (Urea Nitrogen) 36 mg/dL (8.4-25.7); Calc. Creatinine Clearance 82 mL/min (70-130); Calcium 8.5 mg/dL (7.8-10.44); Carbon Dioxide 29 mmol/L (23-31); Chloride 101 mmol/L (98-107); Estimated GFR-MDRD 73; Glucose 117 mg/dL (83-110); Magnesium 2.5 mg/dL (1.6-2.6); Phosphorus 3.2 mg/dL (2.3-4.7); Sodium 141 mmol/L (136-145)
[2017-12-08] MEDS: Acetylcysteine 10% 100 MG/ML 30 ml Vial NEB SCH ×2 (08:37→19:25)
[2017-12-08] MEDS ORDERED: Furosemide 40 MG/4 ML VIAL SLOW IVP SCH (08:45)
[2017-12-08] MEDS: Ferrous Sulfate 325 MG TAB PO SCH ×2 (08:49→17:13)
[2017-12-08] MEDS: Ascorbic Acid 500 mg Chewable Tablet PO SCH ×2 (08:49→17:13)
[2017-12-08] MEDS: Enoxaparin Sodium 40 MG/0.4 ML SYRINGE SC SCH (08:52)
--- NOTE | 2017-12-08 09:10 | RAD ---
PORTABLE AP CHEST: Date: 12-08-17 History: CHF exacerbation. Follow up evaluation. Comparison: 12-06-17 FINDINGS: A right subclavian central venous catheter remains in place and unchanged in position. There is incre ased opacity again seen at the right lung base with increased linear and patchy density at the left l marvin base. Findings could be related to bibasilar pneumonia, greater on the right. There is also proba ble small right pleural effusion. Cardiac silhouette is magnified by projection but does appear mildl y enlarged. Pulmonary vasculature are within normal limits. Vascular calcification is again seen in t he thoracic aorta. IMPRESSION: 1. Bibasilar areas of increased density with greater opacity present at the right lung base. Findings may be related to bibasilar pneumonia greater at the right lung base. Follow up to complete resoluti on is recommended. 2. Small right pleural effusion. POS: [facility]
[2017-12-08] MEDS ORDERED: Sodium Chloride 0.9% 10 ML ONE (09:21)
[2017-12-08] MEDS: Polyethylene Glycol 3350 17 GM Packet PER TUBE SCH (09:54)
[2017-12-08] MEDS: Senokot S 8.6-50 MG TAB PO SCH ×2 (09:54→20:47)
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
[2017-12-08] MEDS: Famotidine 20 MG TAB PO SCH (20:47)
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
[2017-12-09] MEDS: HYDROcodone/Acetaminophen 10/325 mg Tablet PO SCH ×6 (02:08→20:29)
[2017-12-09] MEDS: Hydrocortisone Sod Succ/PF 100 mg/2 ml Vial IVP SCH ×2 (06:08→17:34)
[2017-12-09 06:45] LABS: #Eosinphils 0.4 thou/uL (0.0-0.7); #Lymphocytes 1.1 thou/uL (1.20-3.40); #Monocytes 1.1 thou/uL (0.11-0.59); #Neutrophils 10.2 thou/uL (1.40-6.50); %Basophils 0.1 % (0.0-1.0); %Eosinophils 2.8 % (0.0-10.0); %Lymphocytes 8.8 % (21.0-51.0); %Monocytes 8.6 % (0.0-10.0); %Neutrophils 79.8 % (42.0-75.0); Mean Corpuscular HGB CONC 32.2 g/dL (32.0-36.0); Mean Corpuscular Hemoglobin 31.9 pg (27.0-31.0); Mean Corpuscular Volume 99.1 fl (80.0-94.0); Mean Platelet Volume 6.3 fL (7.4-10.4); Platelet Count 435 thou/uL (130-400); RBC Distribution Width 16.7 % (11.5-14.5); Red Blood Cell (RBC) Count 2.83 mill/uL (4.70-6.10); White Blood Cell (WBC) Count 12.8 thou/uL (4.8-10.8)
[2017-12-09 07:01] LABS: Anion Gap 11 mmol/L (10-20); BUN (Urea Nitrogen) 33 mg/dL (8.4-25.7); Calc. Creatinine Clearance 87 mL/min (70-130); Calcium 8.4 mg/dL (7.8-10.44); Carbon Dioxide 36 mmol/L (23-31); Chloride 96 mmol/L (98-107); Estimated GFR-MDRD 79; Glucose 118 mg/dL (83-110); Magnesium 2.1 mg/dL (1.6-2.6); Potassium 3.2 mmol/L (3.5-5.1); Sodium 140 mmol/L (136-145)
[2017-12-09] MEDS: Senokot S 8.6-50 MG TAB PO SCH ×2 (08:44→20:34)
[2017-12-09] MEDS: Ascorbic Acid 500 mg Chewable Tablet PO SCH ×2 (08:44→16:31)
[2017-12-09] MEDS: Ferrous Sulfate 325 MG TAB PO SCH ×2 (08:44→16:31)
[2017-12-09] MEDS: Polyethylene Glycol 3350 17 GM Packet PER TUBE SCH (08:45)
[2017-12-09] MEDS: Enoxaparin Sodium 40 MG/0.4 ML SYRINGE SC SCH (08:45)
[2017-12-09] MEDS: Furosemide 40 MG TAB PO SCH ×2 (08:50→13:10)
[2017-12-09] MEDS ORDERED: Potassium Phosphate 30 MMOL in Sodium Chloride 0.9% 250 ML 250 ML IVPB SCH (09:00)
[2017-12-09] MEDS ORDERED: AcetaZOLAMIDE 250 MG TAB PO SCH (09:00)
[2017-12-09] MEDS: Acetylcysteine 10% 100 MG/ML 30 ml Vial NEB SCH ×2 (09:11→18:46)
[2017-12-09] MEDS: AcetaZOLAMIDE 250 MG TAB PO SCH ×3 (10:10→20:26)
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
[2017-12-09] MEDS: Gabapentin 100 MG CAP PO SCH ×2 (16:31→20:26)
[2017-12-09] MEDS: Famotidine 20 MG TAB PO SCH (20:26)
[2017-12-09] MEDS: hydrALAZINE 20 MG/ML VIAL SLOW IVP PRN (20:33)
[2017-12-10] MEDS: HYDROcodone/Acetaminophen 10/325 mg Tablet PO SCH ×6 (01:26→23:17)
[2017-12-10] MEDS: Hydrocortisone Sod Succ/PF 100 mg/2 ml Vial IVP SCH ×2 (05:48→23:34)
[2017-12-10 06:36] LABS: Anion Gap 12 mmol/L (10-20); Carbon Dioxide 37 mmol/L (23-31); Chloride 92 mmol/L (98-107); Potassium 3.1 mmol/L (3.5-5.1); Sodium 138 mmol/L (136-145)
[2017-12-10 07:13] LABS: BUN (Urea Nitrogen) 30 mg/dL (8.4-25.7); Calc. Creatinine Clearance 82 mL/min (70-130); Calcium 8.7 mg/dL (7.8-10.44); Estimated GFR-MDRD 77; Glucose 131 mg/dL (83-110); Magnesium 2.2 mg/dL (1.6-2.6); Phosphorus 3.9 mg/dL (2.3-4.7)
[2017-12-10 07:45] LABS: #Eosinphils 0.1 thou/uL (0.0-0.7); #Lymphocytes 0.8 thou/uL (1.20-3.40); #Monocytes 1.1 thou/uL (0.11-0.59); %Basophils 0.1 % (0.0-1.0); %Eosinophils 0.9 % (0.0-10.0); %Lymphocytes 5.5 % (21.0-51.0); %Monocytes 7.2 % (0.0-10.0); %Neutrophils 86.3 % (42.0-75.0); Hemoglobin 9.5 g/dL (14.0-18.0); Mean Corpuscular HGB CONC 32.8 g/dL (32.0-36.0); Mean Corpuscular Hemoglobin 32.5 pg (27.0-31.0); Mean Platelet Volume 6.5 fL (7.4-10.4); Platelet Count 449 thou/uL (130-400); RBC Distribution Width 17.3 % (11.5-14.5); Red Blood Cell (RBC) Count 2.93 mill/uL (4.70-6.10); White Blood Cell (WBC) Count 15.1 thou/uL (4.8-10.8)
[2017-12-10] MEDS: Acetylcysteine 10% 100 MG/ML 30 ml Vial NEB SCH (08:18)
[2017-12-10] MEDS ORDERED: Hydrocortisone Sod Succ/PF 100 mg/2 ml Vial IVP SCH ×2 (08:32→19:30)
[2017-12-10] MEDS: Enoxaparin Sodium 40 MG/0.4 ML SYRINGE SC SCH (08:53)
[2017-12-10] MEDS: Furosemide 40 MG TAB PO SCH (08:54)
[2017-12-10] MEDS: Ferrous Sulfate 325 MG TAB PO SCH ×2 (08:54→17:41)
[2017-12-10] MEDS: AcetaZOLAMIDE 250 MG TAB PO SCH ×3 (08:54→20:33)
[2017-12-10] MEDS: Ascorbic Acid 500 mg Chewable Tablet PO SCH ×2 (08:54→17:41)
[2017-12-10] MEDS: Polyethylene Glycol 3350 17 GM Packet PER TUBE SCH (08:55)
[2017-12-10] MEDS: Gabapentin 100 MG CAP PO SCH ×3 (08:55→20:32)
[2017-12-10] MEDS: Senokot S 8.6-50 MG TAB PO SCH ×3 (08:55→23:18)
[2017-12-10] MEDS ORDERED: Potassium Chloride 20 MEQ TAB PO SCH (09:15)
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
[2017-12-10 18:51] LABS: CKMB 1.8 ng/mL (0-6.6); Troponin I 0.035 ng/mL (< 0.028)
[2017-12-10 19:27] LABS: Hemoglobin 7.2 g/dL (14.0-18.0); Mean Corpuscular HGB CONC 31.7 g/dL (32.0-36.0); Mean Platelet Volume 6.9 fL (7.4-10.4); Platelet Count 581 thou/uL (130-400); RBC Distribution Width 17.1 % (11.5-14.5); Red Blood Cell (RBC) Count 2.24 mill/uL (4.70-6.10); White Blood Cell (WBC) Count 22.2 thou/uL (4.8-10.8)
[2017-12-10 19:35] LABS: Anion Gap 14 mmol/L (10-20); BUN (Urea Nitrogen) 48 mg/dL (8.4-25.7); Calc. Creatinine Clearance 65 mL/min (70-130); Calcium 7.8 mg/dL (7.8-10.44); Carbon Dioxide 26 mmol/L (23-31); Chloride 98 mmol/L (98-107); Estimated GFR-MDRD 58; Glucose 212 mg/dL (83-110); Potassium 3.9 mmol/L (3.5-5.1); Sodium 134 mmol/L (136-145)
[2017-12-10 19:43] LABS: Anisocytosis SLIGHT = 6-15 cells (100X) (0-5/hpf); Band 5 % (5-11); Eosinophils 1 % (0-10); Lymphocytes 6 % (21-51); MDiff Complete? YES; Macrocytosis SLIGHT = 6-15 cells (100X) (0-5/hpf); Monocytes 5 % (0-10); Neutrophil 83 % (42-75); PLT Morphology Comment Appears Increased; Polychromasia MODERATE = 3-4 cells (100X) (0-2/hpf)
--- NOTE | 2017-12-10 19:52 | RAD ---
PORTABLE CHEST ONE VIEW: Date: 12-10-17 Time: 5:49 p.m. History: Hypotension. Chest pain. FINDINGS: Comparison is made with exam of 12-08-17. There has been interval improvement in the right basilar opacities since the previous study. The gelacio burton of the exam is otherwise stable. POS: [facility]
[2017-12-10] MEDS: Famotidine 20 MG TAB PO SCH (20:32)
[2017-12-10 21:35] LABS: CKMB 2.4 ng/mL (0-6.6); Troponin I 0.034 ng/mL (< 0.028)
[2017-12-11] MEDS: HYDROcodone/Acetaminophen 10/325 mg Tablet PO SCH ×6 (02:09→21:25)
[2017-12-11] MEDS: Hydrocortisone Sod Succ/PF 100 mg/2 ml Vial IVP SCH ×4 (05:48→23:22)
[2017-12-11 06:19] LABS: #Eosinphils 0.3 thou/uL (0.0-0.7); #Lymphocytes 1.7 thou/uL (1.20-3.40); #Monocytes 1.3 thou/uL (0.11-0.59); #Neutrophils 20.6 thou/uL (1.40-6.50); %Basophils 0.2 % (0.0-1.0); %Eosinophils 1.3 % (0.0-10.0); %Lymphocytes 7.1 % (21.0-51.0); %Monocytes 5.5 % (0.0-10.0); Hemoglobin 7.4 g/dL (14.0-18.0); Mean Corpuscular HGB CONC 32.7 g/dL (32.0-36.0); Mean Corpuscular Hemoglobin 32.2 pg (27.0-31.0); Mean Corpuscular Volume 98.4 fl (80.0-94.0); Mean Platelet Volume 6.5 fL (7.4-10.4); Platelet Count 426 thou/uL (130-400); RBC Distribution Width 16.4 % (11.5-14.5); Red Blood Cell (RBC) Count 2.29 mill/uL (4.70-6.10); White Blood Cell (WBC) Count 23.9 thou/uL (4.8-10.8)
[2017-12-11 06:28] LABS: ALT (SGPT) 10 U/L (8-55); AST (SGOT) 17 U/L (5-34); Albumin 3.1 g/dL (3.4-4.8); Alkaline Phosphatase 87 U/L (40-150); Anion Gap 12 mmol/L (10-20); BUN (Urea Nitrogen) 63 mg/dL (8.4-25.7); Bilirubin, Direct 0.4 mg/dL (0.1-0.3); Bilirubin, Total 0.8 mg/dL (0.2-1.2); Calc. Creatinine Clearance 63 mL/min (70-130); Carbon Dioxide 31 mmol/L (23-31); Chloride 98 mmol/L (98-107); Estimated GFR-MDRD 57; Glucose 138 mg/dL (83-110); Magnesium 1.9 mg/dL (1.6-2.6); Phosphorus 4.3 mg/dL (2.3-4.7); Protein, Total 5.1 g/dL (5.8-8.1); Sodium 138 mmol/L (136-145)
[2017-12-11] MEDS ORDERED: Potassium Chloride 20 MEQ TAB PO SCH (07:00)
[2017-12-11] MEDS: Ferrous Sulfate 325 MG TAB PO SCH ×2 (08:51→18:10)
[2017-12-11] MEDS: Polyethylene Glycol 3350 17 GM Packet PER TUBE SCH (08:51)
[2017-12-11] MEDS: Gabapentin 100 MG CAP PO SCH ×3 (08:51→21:27)
[2017-12-11] MEDS: Senokot S 8.6-50 MG TAB PO SCH ×2 (08:51→21:25)
[2017-12-11] MEDS: Ascorbic Acid 500 mg Chewable Tablet PO SCH ×2 (08:51→18:10)
[2017-12-11] MEDS: AcetaZOLAMIDE 250 MG TAB PO SCH ×4 (08:54→21:36)
[2017-12-11] MEDS ORDERED: Furosemide 40 MG TAB PO SCH (09:00)
[2017-12-11 09:13] LABS: CKMB 3.5 ng/mL (0-6.6); Troponin I 0.029 ng/mL (< 0.028)
[2017-12-12] MEDS: HYDROcodone/Acetaminophen 10/325 mg Tablet PO SCH ×6 (01:38→20:21)
[2017-12-12] MEDS: Hydrocortisone Sod Succ/PF 100 mg/2 ml Vial IVP SCH ×3 (06:18→18:39)
[2017-12-12 06:45] LABS: Hemoglobin 7.4 g/dL (14.0-18.0); Mean Corpuscular HGB CONC 33.6 g/dL (32.0-36.0); Mean Corpuscular Hemoglobin 32.3 pg (27.0-31.0); Mean Corpuscular Volume 96.1 fl (80.0-94.0); Mean Platelet Volume 6.6 fL (7.4-10.4); Platelet Count 382 thou/uL (130-400); RBC Distribution Width 16.9 % (11.5-14.5); White Blood Cell (WBC) Count 18.7 thou/uL (4.8-10.8)
[2017-12-12 06:55] LABS: Anion Gap 9 mmol/L (10-20); BUN (Urea Nitrogen) 71 mg/dL (8.4-25.7); Calc. Creatinine Clearance 72 mL/min (70-130); Calcium 7.9 mg/dL (7.8-10.44); Carbon Dioxide 30 mmol/L (23-31); Chloride 102 mmol/L (98-107); Estimated GFR-MDRD 64; Glucose 132 mg/dL (83-110); Magnesium 2.1 mg/dL (1.6-2.6); Potassium 2.9 mmol/L (3.5-5.1); Sodium 138 mmol/L (136-145)
[2017-12-12] MEDS ORDERED: Potassium Chloride 40 MEQ in Premix Bag 1 BAG IVPB SCH (07:15)
[2017-12-12] MEDS ORDERED: Potassium Chloride 20 MEQ TAB PO SCH (07:15)
[2017-12-12] MEDS ORDERED: Potassium Chloride 40 MEQ in Sodium Chloride 0.9% 250 ML 250 ML IVPB SCH (07:30)
[2017-12-12] MEDS: Gabapentin 100 MG CAP PO SCH ×3 (08:39→20:21)
[2017-12-12] MEDS: Ferrous Sulfate 325 MG TAB PO SCH ×2 (08:39→17:48)
[2017-12-12] MEDS: Ascorbic Acid 500 mg Chewable Tablet PO SCH ×2 (08:40→17:49)
[2017-12-12] MEDS: AcetaZOLAMIDE 250 MG TAB PO SCH (08:41)
[2017-12-12] MEDS: Senokot S 8.6-50 MG TAB PO SCH ×2 (09:17→20:20)
[2017-12-12] MEDS: Polyethylene Glycol 3350 17 GM Packet PER TUBE SCH (09:17)
[2017-12-12 09:25] LABS: #Eosinphils 0.2 thou/uL (0.0-0.7); #Lymphocytes 1.4 thou/uL (1.20-3.40); #Monocytes 1.5 thou/uL (0.11-0.59); #Neutrophils 15.7 thou/uL (1.40-6.50); %Basophils 0.2 % (0.0-1.0); %Eosinophils 0.9 % (0.0-10.0); %Lymphocytes 7.2 % (21.0-51.0); %Monocytes 7.8 % (0.0-10.0); %Neutrophils 83.9 % (42.0-75.0); Band 4 % (5-11); Lymphocytes 7 % (21-51); MDiff Complete? YES; Metamyelocyte 2 % (0-0); Monocytes 7 % (0-10); Myelocyte 2 % (0-0); Neutrophil 78 % (42-75); Nucleated RBC 1 % (0); PLT Morphology Comment Appears Adequate; Polychromasia MODERATE = 3-4 cells (100X) (0-2/hpf)
[2017-12-12] MEDS: Enoxaparin Sodium 40 MG/0.4 ML SYRINGE SC SCH (10:17)
[2017-12-12 14:59] LABS: Anion Gap 12 mmol/L (10-20); BUN (Urea Nitrogen) 69 mg/dL (8.4-25.7); Calc. Creatinine Clearance 83 mL/min (70-130); Calcium 7.9 mg/dL (7.8-10.44); Carbon Dioxide 24 mmol/L (23-31); Chloride 104 mmol/L (98-107); Estimated GFR-MDRD 75; Glucose 126 mg/dL (83-110); Potassium 3.3 mmol/L (3.5-5.1); Sodium 137 mmol/L (136-145)
[2017-12-12] MEDS ORDERED: Potassium Chloride 40 MEQ in Sodium Chloride 0.9% 500 ML IVPB SCH (16:00)
[2017-12-12] MEDS: Vancomycin HCl 25 MG/ML Oral PO SCH (18:37)
[2017-12-12] MEDS: Lidocaine Viscous Sol 2% 15 ml UD Cup SSP SCH (20:27)
[2017-12-13] MEDS: Hydrocortisone Sod Succ/PF 100 mg/2 ml Vial IVP SCH ×5 (00:06→23:48)
[2017-12-13] MEDS: Vancomycin HCl 25 MG/ML Oral PO SCH ×2 (00:19→06:14)
[2017-12-13] MEDS: HYDROcodone/Acetaminophen 10/325 mg Tablet PO SCH ×6 (01:31→20:30)
[2017-12-13 07:15] LABS: Anion Gap 9 mmol/L (10-20); BUN (Urea Nitrogen) 63 mg/dL (8.4-25.7); Calc. Creatinine Clearance 82 mL/min (70-130); Calcium 7.7 mg/dL (7.8-10.44); Carbon Dioxide 25 mmol/L (23-31); Chloride 106 mmol/L (98-107); Estimated GFR-MDRD 75; Glucose 125 mg/dL (83-110); Magnesium 2.1 mg/dL (1.6-2.6); Phosphorus 2.7 mg/dL (2.3-4.7); Potassium 3.3 mmol/L (3.5-5.1); Sodium 137 mmol/L (136-145)
[2017-12-13 07:26] LABS: #Eosinphils 0.1 thou/uL (0.0-0.7); #Lymphocytes 1.2 thou/uL (1.20-3.40); #Monocytes 1.4 thou/uL (0.11-0.59); #Neutrophils 13.6 thou/uL (1.40-6.50); %Basophils 0.1 % (0.0-1.0); %Eosinophils 0.6 % (0.0-10.0); %Lymphocytes 7.1 % (21.0-51.0); %Monocytes 8.4 % (0.0-10.0); %Neutrophils 83.8 % (42.0-75.0); Anisocytosis SLIGHT = 6-15 cells (100X) (0-5/hpf); Hemoglobin 6.8 g/dL (14.0-18.0); MDiff Complete? YES; Macrocytosis SLIGHT = 6-15 cells (100X) (0-5/hpf); Mean Corpuscular HGB CONC 32.5 g/dL (32.0-36.0); Mean Corpuscular Hemoglobin 31.8 pg (27.0-31.0); Mean Platelet Volume 6.1 fL (7.4-10.4); PLT Morphology Comment Appears Adequate; Platelet Count 364 thou/uL (130-400); Polychromasia SLIGHT = 2-3 cells (100X) (0-2/hpf); RBC Distribution Width 16.4 % (11.5-14.5); Red Blood Cell (RBC) Count 2.13 mill/uL (4.70-6.10); White Blood Cell (WBC) Count 16.3 thou/uL (4.8-10.8)
[2017-12-13] MEDS: Ascorbic Acid 500 mg Chewable Tablet PO SCH ×3 (08:26→17:14)
[2017-12-13] MEDS: Lidocaine Viscous Sol 2% 15 ml UD Cup SSP SCH ×2 (08:26→12:04)
[2017-12-13] MEDS: Ferrous Sulfate 325 MG TAB PO SCH ×3 (08:26→17:14)
[2017-12-13] MEDS: Gabapentin 100 MG CAP PO SCH ×3 (08:26→20:31)
[2017-12-13] MEDS: Polyethylene Glycol 3350 17 GM Packet PER TUBE SCH (08:28)
[2017-12-13] MEDS: Senokot S 8.6-50 MG TAB PO SCH ×2 (08:28→20:20)
[2017-12-13] MEDS ORDERED: Potassium Chloride 40 MEQ in Premix Bag 1 BAG IVPB SCH (08:30)
[2017-12-13] MEDS: Enoxaparin Sodium 40 MG/0.4 ML SYRINGE SC SCH (09:39)
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
[2017-12-13] MEDS ORDERED: Lidocaine 1% PF 5 ML VIAL ONE (14:26)
[2017-12-13] MEDS ORDERED: Propofol 200 MG/20 ML VIAL ONE (14:26)
[2017-12-13] MEDS ORDERED: Ondansetron HCl/PF 4 MG/2 ML Vial IVP PRN (15:56)
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
--- NOTE | 2017-12-13 17:28 | OP ---
DATE OF PROCEDURE: 12/13/2017 PROCEDURE: Esophagogastroduodenoscopy (diagnostic). INDICATION: Anemia, melena. DESCRIPTION OF PROCEDURE: After explaining the risks and benefits of the procedure to both the patie nt and the patient's surrogate including risks of bleeding, infection, perforation, reaction to anest hesia and/or pain, informed consent was obtained. He was then taken to the endoscopy suite where sandrine p sedation was administered via propofol and anesthesia support. The standard gastroscope was then i ntroduced into the mouth with intubation of the esophagus, stomach and proximal small intestine with the findings listed below. The patient tolerated the procedure well with no immediate perioperative complications. FINDINGS: Esophagus: Normal appearing mucosa was seen in the proximal and mid esophagus, a circumferential rin g of either adherent food or possible ulceration was seen in the distal esophagus just proximal to th e GE junction measuring around 1-2 cm in a circumferential fashion. There was no associated increase d erythema, erosions or active/recent bleeding with manipulation of this exudate with a biopsy forcep s. Visualization of the underlying mucosa was able to be achieved again with no significant erosions or ulcerative bed. Stomach: A significant amount of dark black fluid was seen in the gastric fundus and body that was a menable to suctioning, measurement of the amount of this liquid could not be obtained, but per my est imate measured approximately 1-1.5 liters. With aggressive irrigation and suctioning, the gastric mu cosa was able to be visualized of the mucosa visualized. There were no abnormalities within the muco sa seen in the cardia, fundus, body, antrum and incisura. There was no evidence of erosions, ulcerat ions active/recent bleeding or mass lesions. Duodenum: Again the darker colored material was also seen in the duodenal bulb and second portion of the duodenum, but was amenable to aggressive irrigation and suctioning of the mucosa visualized. Th ere was no evidence of erosions, ulcerations, or mass lesions seen in either the bulb or second porti on of the duodenum. IMPRESSION: 1. LA grade D reflux mediated erosive esophagitis. 2. Significant amount of black colored fluid within the stomach concerning for gastric outlet obstru ction or gastroparesis, although no outlet obstruction was seen during the examination today with int ubation of the duodenum easily obtained. 3. No evidence of active/recent bleeding was seen on examination today that would explain the patien t's current anemia. RECOMMENDATIONS: 1. Follow up with primary inpatient team. 2. We would continue to trend H&H and transfuse as necessary to maintain an H&H of 06/20. 3. We would consider noncontrasted CT of the abdomen for determination of a possible retroperitoneal bleed or intra-abdominal hemorrhage as the source of anemia. 4. We would continue pantoprazole 40 mg daily given evidence of increased reflux esophagitis. We wo uld maintain strict antireflux precautions (for example, maintain an upright posture both during feed ings and for approximately 2 hours after feedings).
[2017-12-14] MEDS: HYDROcodone/Acetaminophen 10/325 mg Tablet PO SCH ×6 (03:14→20:33)
[2017-12-14] MEDS: Hydrocortisone Sod Succ/PF 100 mg/2 ml Vial IVP SCH ×3 (04:56→18:08)
[2017-12-14 05:16] LABS: #Eosinphils 0.1 thou/uL (0.0-0.7); #Lymphocytes 0.8 thou/uL (1.20-3.40); #Monocytes 0.9 thou/uL (0.11-0.59); #Neutrophils 10.7 thou/uL (1.40-6.50); %Basophils 0.2 % (0.0-1.0); %Eosinophils 0.9 % (0.0-10.0); %Lymphocytes 6.1 % (21.0-51.0); %Monocytes 7.3 % (0.0-10.0); %Neutrophils 85.5 % (42.0-75.0); Hemoglobin 7.8 g/dL (14.0-18.0); Mean Corpuscular HGB CONC 33.7 g/dL (32.0-36.0); Mean Corpuscular Hemoglobin 32.4 pg (27.0-31.0); Mean Platelet Volume 6.2 fL (7.4-10.4); Platelet Count 351 thou/uL (130-400); RBC Distribution Width 17.4 % (11.5-14.5); White Blood Cell (WBC) Count 12.6 thou/uL (4.8-10.8)
[2017-12-14 05:30] LABS: Anion Gap 7 mmol/L (10-20); BUN (Urea Nitrogen) 48 mg/dL (8.4-25.7); Calc. Creatinine Clearance 83 mL/min (70-130); Calcium 8.1 mg/dL (7.8-10.44); Carbon Dioxide 29 mmol/L (23-31); Chloride 108 mmol/L (98-107); Estimated GFR-MDRD 79; Glucose 134 mg/dL (83-110); Magnesium 2.3 mg/dL (1.6-2.6); Phosphorus 2.6 mg/dL (2.3-4.7); Potassium 3.1 mmol/L (3.5-5.1); Sodium 141 mmol/L (136-145)
[2017-12-14] MEDS ORDERED: Potassium Chloride 40 MEQ in Sodium Chloride 0.9% 250 ML 250 ML IVPB SCH (07:45)
[2017-12-14] MEDS: Ferrous Sulfate 325 MG TAB PO SCH ×2 (08:41→18:08)
[2017-12-14] MEDS: Gabapentin 100 MG CAP PO SCH ×3 (08:41→20:32)
[2017-12-14] MEDS: Ascorbic Acid 500 mg Chewable Tablet PO SCH ×2 (08:41→18:08)
[2017-12-14] MEDS: Senokot S 8.6-50 MG TAB PO SCH ×2 (08:42→20:35)
[2017-12-14] MEDS: Polyethylene Glycol 3350 17 GM Packet PER TUBE SCH (08:42)
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
[2017-12-14] MEDS ORDERED: Potassium Phosphate 30 MMOL in Sodium Chloride 0.9% 500 ML IVPB SCH (14:00)
[2017-12-14] MEDS: Megestrol Acetate 40 MG TAB PO SCH (20:33)
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
[2017-12-15] MEDS: Hydrocortisone Sod Succ/PF 100 mg/2 ml Vial IVP SCH ×4 (00:16→17:58)
[2017-12-15] MEDS: HYDROcodone/Acetaminophen 10/325 mg Tablet PO SCH ×8 (00:18→21:46)
[2017-12-15 04:55] LABS: #Eosinphils 0.1 thou/uL (0.0-0.7); #Lymphocytes 0.8 thou/uL (1.20-3.40); #Monocytes 0.8 thou/uL (0.11-0.59); #Neutrophils 9.8 thou/uL (1.40-6.50); %Basophils 0.1 % (0.0-1.0); %Eosinophils 1.1 % (0.0-10.0); %Lymphocytes 7.1 % (21.0-51.0); %Monocytes 6.7 % (0.0-10.0); Hemoglobin 6.5 g/dL (14.0-18.0); Mean Corpuscular HGB CONC 32.4 g/dL (32.0-36.0); Mean Corpuscular Hemoglobin 32.1 pg (27.0-31.0); Mean Corpuscular Volume 99.1 fl (80.0-94.0); Platelet Count 336 thou/uL (130-400); RBC Distribution Width 18.8 % (11.5-14.5); Red Blood Cell (RBC) Count 2.01 mill/uL (4.70-6.10); White Blood Cell (WBC) Count 11.5 thou/uL (4.8-10.8)
[2017-12-15 05:13] LABS: Anion Gap 8 mmol/L (10-20); BUN (Urea Nitrogen) 43 mg/dL (8.4-25.7); Calc. Creatinine Clearance 97 mL/min (70-130); Calcium 7.9 mg/dL (7.8-10.44); Carbon Dioxide 28 mmol/L (23-31); Chloride 107 mmol/L (98-107); Estimated GFR-MDRD Greater than 90; Glucose 134 mg/dL (83-110); Magnesium 2.2 mg/dL (1.6-2.6); Phosphorus 2.8 mg/dL (2.3-4.7); Potassium 3.4 mmol/L (3.5-5.1); Sodium 140 mmol/L (136-145)
[2017-12-15] MEDS ORDERED: Potassium Chloride 40 MEQ in Premix Bag 1 BAG IVPB SCH (07:15)
[2017-12-15] MEDS ORDERED: Potassium Chloride 40 MEQ in Sodium Chloride 0.9% 250 ML 250 ML IVPB SCH (07:15)
[2017-12-15 08:08] LABS: INR-International Normal Ratio 1.2; PTT 27.9 SEC (22.9-36.1); Prothrombin Time 15.4 SEC (12.0-14.7)
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
[2017-12-15] MEDS: Ascorbic Acid 500 mg Chewable Tablet PO SCH ×2 (09:43→17:59)
[2017-12-15] MEDS: Megestrol Acetate 40 MG TAB PO SCH ×2 (09:44→21:47)
[2017-12-15] MEDS: Ferrous Sulfate 325 MG TAB PO SCH ×2 (09:44→17:59)
[2017-12-15] MEDS: Gabapentin 100 MG CAP PO SCH ×3 (09:44→21:47)
[2017-12-15] MEDS: Polyethylene Glycol 3350 17 GM Packet PER TUBE SCH (10:27)
[2017-12-15] MEDS: Senokot S 8.6-50 MG TAB PO SCH ×2 (10:27→21:47)
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
[2017-12-15] MEDS ORDERED: Saccharomyces boulardii 250 MG CAP PO SCH (12:00)
[2017-12-15] MEDS ORDERED: Tamsulosin HCl 0.4 MG CAP PO SCH (12:00)
[2017-12-15] MEDS ORDERED: Dutasteride 0.5 MG CAP PO SCH (12:00)
[2017-12-15] MEDS ORDERED: ISOVUE-370 76%-LOCM 1 ML ONE (15:44)
[2017-12-16] MEDS: Hydrocortisone Sod Succ/PF 100 mg/2 ml Vial IVP SCH ×6 (00:10→22:49)
[2017-12-16] MEDS: HYDROcodone/Acetaminophen 10/325 mg Tablet PO SCH ×6 (02:39→22:49)
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
[2017-12-16 07:27] LABS: #Eosinphils 0.3 thou/uL (0.0-0.7); #Lymphocytes 1.1 thou/uL (1.20-3.40); #Neutrophils 12.3 thou/uL (1.40-6.50); %Basophils 0.3 % (0.0-1.0); %Eosinophils 1.8 % (0.0-10.0); %Lymphocytes 7.1 % (21.0-51.0); %Monocytes 6.9 % (0.0-10.0); %Neutrophils 83.9 % (42.0-75.0); Hemoglobin 6.7 g/dL (14.0-18.0); Mean Corpuscular HGB CONC 33.2 g/dL (32.0-36.0); Mean Corpuscular Hemoglobin 32.6 pg (27.0-31.0); Mean Corpuscular Volume 98.1 fl (80.0-94.0); Mean Platelet Volume 5.5 fL (7.4-10.4); Platelet Count 324 thou/uL (130-400); RBC Distribution Width 19.1 % (11.5-14.5); Red Blood Cell (RBC) Count 2.05 mill/uL (4.70-6.10); White Blood Cell (WBC) Count 14.7 thou/uL (4.8-10.8)
[2017-12-16 07:50] LABS: Anion Gap 8 mmol/L (10-20); BUN (Urea Nitrogen) 44 mg/dL (8.4-25.7); Calc. Creatinine Clearance 102 mL/min (70-130); Carbon Dioxide 25 mmol/L (23-31); Chloride 107 mmol/L (98-107); Estimated GFR-MDRD Greater than 90; Glucose 140 mg/dL (83-110); Magnesium 1.9 mg/dL (1.6-2.6); Phosphorus 2.1 mg/dL (2.3-4.7); Potassium 3.7 mmol/L (3.5-5.1); Sodium 136 mmol/L (136-145)
[2017-12-16] MEDS: Ascorbic Acid 500 mg Chewable Tablet PO SCH ×2 (08:39→17:23)
[2017-12-16] MEDS: Ferrous Sulfate 325 MG TAB PO SCH ×2 (08:39→17:22)
[2017-12-16] MEDS: Gabapentin 100 MG CAP PO SCH ×3 (08:39→22:00)
[2017-12-16] MEDS: Tamsulosin HCl 0.4 MG CAP PO SCH (08:39)
[2017-12-16] MEDS: Dutasteride 0.5 MG CAP PO SCH (08:40)
[2017-12-16] MEDS: Megestrol Acetate 40 MG TAB PO SCH ×2 (08:40→22:00)
[2017-12-16] MEDS: Saccharomyces boulardii 250 MG CAP PO SCH (08:40)
[2017-12-16] MEDS: Polyethylene Glycol 3350 17 GM Packet PER TUBE SCH (08:56)
[2017-12-16] MEDS: Senokot S 8.6-50 MG TAB PO SCH ×2 (08:57→22:00)
[2017-12-16 09:52] LABS: Reticulocyte Count 12.4 % (0.5-1.5)
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
[2017-12-17] MEDS: HYDROcodone/Acetaminophen 10/325 mg Tablet PO SCH ×7 (03:05→21:54)
[2017-12-17] MEDS: Hydrocortisone Sod Succ/PF 100 mg/2 ml Vial IVP SCH ×3 (06:11→21:40)
[2017-12-17 06:25] LABS: #Eosinphils 0.2 thou/uL (0.0-0.7); #Lymphocytes 1.2 thou/uL (1.20-3.40); #Neutrophils 10.8 thou/uL (1.40-6.50); %Basophils 0.3 % (0.0-1.0); %Eosinophils 1.2 % (0.0-10.0); %Lymphocytes 9.4 % (21.0-51.0); %Monocytes 7.7 % (0.0-10.0); %Neutrophils 81.5 % (42.0-75.0); Hemoglobin 6.5 g/dL (14.0-18.0); Mean Corpuscular HGB CONC 32.8 g/dL (32.0-36.0); Mean Corpuscular Hemoglobin 32.2 pg (27.0-31.0); Mean Corpuscular Volume 98.3 fl (80.0-94.0); Mean Platelet Volume 5.7 fL (7.4-10.4); Platelet Count 338 thou/uL (130-400); RBC Distribution Width 19.8 % (11.5-14.5); Red Blood Cell (RBC) Count 2.03 mill/uL (4.70-6.10); White Blood Cell (WBC) Count 13.3 thou/uL (4.8-10.8)
[2017-12-17 06:44] LABS: Anion Gap 7 mmol/L (10-20); BUN (Urea Nitrogen) 32 mg/dL (8.4-25.7); Calc. Creatinine Clearance 109 mL/min (70-130); Calcium 8.2 mg/dL (7.8-10.44); Carbon Dioxide 24 mmol/L (23-31); Chloride 107 mmol/L (98-107); Estimated GFR-MDRD Greater than 90; Glucose 118 mg/dL (83-110); Phosphorus 2.3 mg/dL (2.3-4.7); Potassium 3.8 mmol/L (3.5-5.1); Sodium 134 mmol/L (136-145)
[2017-12-17] MEDS: Ascorbic Acid 500 mg Chewable Tablet PO SCH ×2 (09:41→17:19)
[2017-12-17] MEDS: Polyethylene Glycol 3350 17 GM Packet PER TUBE SCH (09:41)
[2017-12-17] MEDS: Dutasteride 0.5 MG CAP PO SCH (09:41)
[2017-12-17] MEDS: Saccharomyces boulardii 250 MG CAP PO SCH (09:41)
[2017-12-17] MEDS: Megestrol Acetate 40 MG TAB PO SCH ×2 (09:41→21:40)
[2017-12-17] MEDS: Ferrous Sulfate 325 MG TAB PO SCH ×2 (09:42→17:20)
[2017-12-17] MEDS: Senokot S 8.6-50 MG TAB PO SCH ×2 (09:42→21:40)
[2017-12-17] MEDS: Gabapentin 100 MG CAP PO SCH ×3 (09:42→21:40)
[2017-12-17] MEDS: Tamsulosin HCl 0.4 MG CAP PO SCH (09:42)
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
[2017-12-17] MEDS ORDERED: Bacitracin Zinc 1 Packet TOP SCH (11:45)
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
[2017-12-18] MEDS: HYDROcodone/Acetaminophen 10/325 mg Tablet PO SCH ×2 (02:31→05:45)
[2017-12-18] MEDS: Hydrocortisone Sod Succ/PF 100 mg/2 ml Vial IVP SCH ×3 (05:45→22:02)
[2017-12-18 06:24] LABS: Anion Gap 10 mmol/L (10-20); BUN (Urea Nitrogen) 20 mg/dL (8.4-25.7); Calc. Creatinine Clearance 113 mL/min (70-130); Calcium 8.1 mg/dL (7.8-10.44); Carbon Dioxide 22 mmol/L (23-31); Chloride 108 mmol/L (98-107); Estimated GFR-MDRD Greater than 90; Glucose 114 mg/dL (83-110); Magnesium 2.2 mg/dL (1.6-2.6); Phosphorus 2.6 mg/dL (2.3-4.7); Potassium 3.9 mmol/L (3.5-5.1); Sodium 136 mmol/L (136-145)
[2017-12-18 06:33] LABS: Hemoglobin 6.7 g/dL (14.0-18.0); Mean Corpuscular HGB CONC 32.6 g/dL (32.0-36.0); Mean Corpuscular Hemoglobin 32.2 pg (27.0-31.0); Mean Corpuscular Volume 98.9 fl (80.0-94.0); Mean Platelet Volume 5.9 fL (7.4-10.4); Platelet Count 285 thou/uL (130-400); RBC Distribution Width 19.1 % (11.5-14.5); Red Blood Cell (RBC) Count 2.09 mill/uL (4.70-6.10); White Blood Cell (WBC) Count 9.6 thou/uL (4.8-10.8)
[2017-12-18 07:12] LABS: #Eosinphils 0.1 thou/uL (0.0-0.7); #Lymphocytes 0.9 thou/uL (1.20-3.40); #Monocytes 0.7 thou/uL (0.11-0.59); #Neutrophils 7.9 thou/uL (1.40-6.50); %Basophils 0.1 % (0.0-1.0); %Eosinophils 0.7 % (0.0-10.0); %Lymphocytes 9.7 % (21.0-51.0); %Monocytes 6.9 % (0.0-10.0); %Neutrophils 82.6 % (42.0-75.0); Hypochromia SLIGHT = 6-15 cells (100X) (0-5/hpf); MDiff Complete? YES; Polychromasia MODERATE = 3-4 cells (100X) (0-2/hpf)
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
[2017-12-18] MEDS: Cyanocobalamin (Vitamin B-12) 1,000 MCG TAB PO SCH (08:47)
[2017-12-18] MEDS: Ascorbic Acid 500 mg Chewable Tablet PO SCH ×2 (08:48→17:40)
[2017-12-18] MEDS: Folic Acid 1 MG TAB PO SCH (08:48)
[2017-12-18] MEDS: Gabapentin 100 MG CAP PO SCH ×3 (08:48→22:01)
[2017-12-18] MEDS ORDERED: traMADol HCl 50 MG TAB PO PRN (08:48)
[2017-12-18] MEDS: Dutasteride 0.5 MG CAP PO SCH (08:48)
[2017-12-18] MEDS: Saccharomyces boulardii 250 MG CAP PO SCH (08:48)
[2017-12-18] MEDS: Polyethylene Glycol 3350 17 GM Packet PER TUBE SCH (08:48)
[2017-12-18] MEDS: Megestrol Acetate 40 MG TAB PO SCH ×3 (08:48→22:40)
[2017-12-18] MEDS: Tamsulosin HCl 0.4 MG CAP PO SCH (08:49)
[2017-12-18] MEDS: Bacitracin Zinc 1 Packet TOP SCH (08:49)
[2017-12-18] MEDS: Ferrous Sulfate 325 MG TAB PO SCH ×2 (08:49→17:40)
[2017-12-18] MEDS: Senokot S 8.6-50 MG TAB PO SCH ×2 (08:49→22:02)
[2017-12-18] MEDS ORDERED: Enoxaparin Sodium 30 MG/0.3 ML SYRINGE SC SCH (09:00)
[2017-12-18 09:53] LABS: Bilirubin Negative (Negative); Blood, Urine Large (Negative); Clarity TURBID (Clear); Glucose, Urine (Dipstick) Negative (Negative); Leukocyte Large (Negative); Nitrite Negative (Negative); Protein, Urine (Dipstick) 30 mg/dL (Neg-Trace); Specific Gravity, Urine 1.023 (1.002-1.036); Urobilinogen 0.2 mg/dL (0.2-1.0); pH, Urine 5.5 (5.0-9.0)
[2017-12-18 09:55] LABS: Bacteria/HPF 4+ HPF (None Seen); Hyaline Casts/LPF 4-6 HYALINE CAST LPF (0-3 Hyaline); Pathc Cast-AUWi Flag 0.73 (0-2.49); RBC/HPF 21-50 HPF (0-3); Squamous Epithelial 0-3 HPF (0-3)
--- NOTE | 2017-12-18 11:09 | ULT ---
BILATERAL LOWER EXTREMITY DOPPLER ULTRASOUND: History: Rule out DVT. Lower extremity edema. Comparison: None. Technique: Real-time grayscale doppler with spectral analysis of the lower extremity venous systems p erformed. The common femoral, femoral, popliteal, and greater saphenous deep femoral veins as well as popliteal and posterior tibial veins were interrogated. The left posterior tibial veins were unable to be interrogated due to the leg being wrapped for a broken bone. FINDINGS: Normal flow, augmentation and compression. Moderate edema. IMPRESSION: Moderate edema. No deep vein thrombosis. POS: [facility]
[2017-12-18] MEDS: traMADol HCl 50 MG TAB PO SCH ×2 (11:16→17:40)
[2017-12-18] MEDS: Acetaminophen 500 MG TAB PO SCH ×2 (11:16→17:40)
[2017-12-18 11:17] LABS: #Eosinphils 0.1 thou/uL (0.0-0.7); #Lymphocytes 0.8 thou/uL (1.20-3.40); #Monocytes 0.7 thou/uL (0.11-0.59); #Neutrophils 8.7 thou/uL (1.40-6.50); %Basophils 0.2 % (0.0-1.0); %Lymphocytes 7.7 % (21.0-51.0); %Monocytes 6.6 % (0.0-10.0); %Neutrophils 84.5 % (42.0-75.0); Hemoglobin 7.5 g/dL (14.0-18.0); Mean Corpuscular HGB CONC 32.4 g/dL (32.0-36.0); Mean Corpuscular Hemoglobin 32.4 pg (27.0-31.0); Mean Corpuscular Volume 99.8 fl (80.0-94.0); Mean Platelet Volume 6.2 fL (7.4-10.4); Platelet Count 308 thou/uL (130-400); RBC Distribution Width 19.6 % (11.5-14.5); Red Blood Cell (RBC) Count 2.33 mill/uL (4.70-6.10); White Blood Cell (WBC) Count 10.3 thou/uL (4.8-10.8)
[2017-12-18 11:37] LABS: Iron 18 ug/dL (65-175); Iron Binding Capacity, Total 268 mcg/dL (261-462)
[2017-12-18 12:09] LABS: Folate (Folic Acid) 6.3 ng/mL (7.0-31.4)
[2017-12-18 14:21] LABS: ALT (SGPT) 10 U/L (8-55); AST (SGOT) 18 U/L (5-34); Albumin 2.8 g/dL (3.4-4.8); Alkaline Phosphatase 135 U/L (40-150); Bilirubin, Direct 0.3 mg/dL (0.1-0.3); Bilirubin, Total 0.5 mg/dL (0.2-1.2); LDH 404 U/L (125-220); Protein, Total 4.9 g/dL (5.8-8.1)
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
[2017-12-18] MEDS: Sulfameth/Trimethoprim DS 800-160mg TAB PO SCH (22:01)
[2017-12-19] MEDS: traMADol HCl 50 MG TAB PO SCH ×2 (00:26→07:01)
[2017-12-19] MEDS: Acetaminophen 500 MG TAB PO SCH ×4 (00:27→17:46)
[2017-12-19 05:40] LABS: #Eosinphils 0.1 thou/uL (0.0-0.7); #Lymphocytes 0.8 thou/uL (1.20-3.40); #Monocytes 0.7 thou/uL (0.11-0.59); #Neutrophils 8.8 thou/uL (1.40-6.50); %Eosinophils 1.2 % (0.0-10.0); %Lymphocytes 7.4 % (21.0-51.0); %Monocytes 6.7 % (0.0-10.0); %Neutrophils 84.7 % (42.0-75.0); Mean Corpuscular Hemoglobin 35.9 pg (27.0-31.0); Mean Platelet Volume 6.8 fL (7.4-10.4); Platelet Count 286 thou/uL (130-400); RBC Distribution Width 19.8 % (11.5-14.5); Red Blood Cell (RBC) Count 1.68 mill/uL (4.70-6.10); White Blood Cell (WBC) Count 10.3 thou/uL (4.8-10.8)
[2017-12-19 05:57] LABS: Anion Gap 9 mmol/L (10-20); BUN (Urea Nitrogen) 26 mg/dL (8.4-25.7); Calc. Creatinine Clearance 106 mL/min (70-130); Calcium 7.8 mg/dL (7.8-10.44); Carbon Dioxide 24 mmol/L (23-31); Chloride 106 mmol/L (98-107); Estimated GFR-MDRD Greater than 90; Glucose 118 mg/dL (83-110); Magnesium 1.9 mg/dL (1.6-2.6); Phosphorus 2.4 mg/dL (2.3-4.7); Sodium 135 mmol/L (136-145)
[2017-12-19] MEDS ORDERED: traMADol HCl 50 MG TAB PO PRN (08:11)
[2017-12-19] MEDS: Cyanocobalamin (Vitamin B-12) 1,000 MCG TAB PO SCH (08:29)
[2017-12-19] MEDS: Dutasteride 0.5 MG CAP PO SCH (08:29)
[2017-12-19] MEDS: Ferrous Sulfate 325 MG TAB PO SCH (08:29)
[2017-12-19] MEDS: Bacitracin Zinc 1 Packet TOP SCH (08:29)
[2017-12-19] MEDS: Ascorbic Acid 500 mg Chewable Tablet PO SCH ×2 (08:29→17:46)
[2017-12-19] MEDS: Gabapentin 100 MG CAP PO SCH ×3 (08:30→21:05)
[2017-12-19] MEDS: Folic Acid 1 MG TAB PO SCH (08:30)
[2017-12-19] MEDS: Hydrocortisone Sod Succ/PF 100 mg/2 ml Vial IVP SCH ×2 (08:30→21:06)
[2017-12-19] MEDS: Senokot S 8.6-50 MG TAB PO SCH ×2 (08:31→21:07)
[2017-12-19] MEDS: Polyethylene Glycol 3350 17 GM Packet PER TUBE SCH (08:31)
[2017-12-19] MEDS: Saccharomyces boulardii 250 MG CAP PO SCH (08:31)
[2017-12-19] MEDS: Sulfameth/Trimethoprim DS 800-160mg TAB PO SCH ×2 (08:31→21:05)
[2017-12-19] MEDS: Tamsulosin HCl 0.4 MG CAP PO SCH (08:32)
[2017-12-19] MEDS: Megestrol Acetate 40 MG TAB PO SCH ×2 (08:37→21:05)
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
--- NOTE | 2017-12-19 09:05 | RAD ---
CHEST 1 VIEW: Date: 12/19/17 HISTORY: Chest pain. Hemothorax. COMPARISON: 12/10/17. FINDINGS: Cardiac silhouette is magnified and enlarged. Pulmonary vasculature remains slightly engorged. Medias tinum is midline with aortic calcification. Right subclavian central venous catheter remains in place . Parenchymal opacity at the right base and blunting of the right costophrenic angle are similar in dari earance to the previous exam. IMPRESSION: 1. Right basilar parenchymal opacity and minimal right pleural fluid are similar in appearance to th e prior study. 2. Mild pulmonary vascular congestion. 3. Atherosclerosis. POS: [facility]
--- NOTE | 2017-12-19 09:51 | ULT ---
LIMITED ABDOMINAL ULTRASOUND: CLINICAL HISTORY: Rule out free fluid. FINDINGS: There is imaging of the 4 quadrants of the abdomen. There is no evidence of significant ascites. IMPRESSION: No ascites within the abdomen. POS: [facility]
[2017-12-19] MEDS ORDERED: Furosemide 40 MG/4 ML VIAL SLOW IVP SCH (10:45)
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
[2017-12-19] MEDS: Lorazepam 2 MG/ML VIAL ONE (14:34)
[2017-12-19] MEDS ORDERED: Heparin 1,000 UNITS/ML VIAL ONE (15:31)
--- NOTE | 2017-12-19 16:26 | NM ---
NUCLEAR MEDICINE GI BLEED SCAN 12/19/17 HISTORY: Persistent anemia and melena. Ongoing GI bleed. TECHNIQUE: A nuclear medicine bleeding scan was performed using 27 millicuries of technetium 99m tagged red bloo d cells. FINDINGS: Through the majority of the study, the radiopharmaceutical remained within blood pool without obvious exiting from the blood pool. However, at the very end of the study at approximately 80 minutes, radi opharmaceutical began accumulating in the left abdomen. After accumulation in the left abdomen, this then traversed toward the midline in what appears to be course of the left colon towards the sigmoid colon. Please note this exam is limited secondary to patient's cooperability and movement during the examination. IMPRESSION: Likely source of GI bleeding is in the left colon. POS: [facility]
[2017-12-19] MEDS ORDERED: GoLYTELY 4,000 ml Bottle PO SCH (18:00)
[2017-12-19] MEDS ORDERED: Lorazepam 2 MG/ML VIAL SLOW IVP SCH (18:15)
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
[2017-12-19] MEDS: Pantoprazole 40 MG VIAL IVP SCH (21:05)
[2017-12-20] MEDS: Acetaminophen 500 MG TAB PO SCH ×4 (00:04→15:21)
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
[2017-12-20 06:55] LABS: Hemoglobin 5.8 g/dL (14.0-18.0)
[2017-12-20 07:00] LABS: Reticulocyte Count 16.4 % (0.5-1.5)
[2017-12-20 07:04] LABS: Anion Gap 9 mmol/L (10-20); BUN (Urea Nitrogen) 49 mg/dL (8.4-25.7); Calc. Creatinine Clearance 98 mL/min (70-130); Calcium 7.8 mg/dL (7.8-10.44); Carbon Dioxide 25 mmol/L (23-31); Chloride 108 mmol/L (98-107); Estimated GFR-MDRD Greater than 90; Glucose 118 mg/dL (83-110); Magnesium 1.9 mg/dL (1.6-2.6); Phosphorus 2.8 mg/dL (2.3-4.7); Sodium 138 mmol/L (136-145)
[2017-12-20 07:12] LABS: #Eosinphils 0.1 thou/uL (0.0-0.7); #Lymphocytes 0.7 thou/uL (1.20-3.40); #Monocytes 0.8 thou/uL (0.11-0.59); #Neutrophils 9.2 thou/uL (1.40-6.50); %Basophils 0.3 % (0.0-1.0); %Eosinophils 0.7 % (0.0-10.0); %Lymphocytes 6.9 % (21.0-51.0); %Monocytes 7.2 % (0.0-10.0); Anisocytosis MODERATE=16-30 cells (100X) (0-5/hpf); MDiff Complete? YES; Mean Corpuscular HGB CONC 31.8 g/dL (32.0-36.0); Mean Corpuscular Hemoglobin 32.3 pg (27.0-31.0); Mean Platelet Volume 6.1 fL (7.4-10.4); Platelet Count 247 thou/uL (130-400); Polychromasia SLIGHT = 2-3 cells (100X) (0-2/hpf); RBC Distribution Width 18.6 % (11.5-14.5); Red Blood Cell (RBC) Count 1.79 mill/uL (4.70-6.10); White Blood Cell (WBC) Count 10.8 thou/uL (4.8-10.8)
[2017-12-20] MEDS ORDERED: Furosemide 40 MG/4 ML VIAL SLOW IVP SCH (07:45)
--- NOTE | 2017-12-20 09:56 | PRG ---
DATE OF SERVICE: 12/20/2017 I was informed by the nurse this morning he only drank 1/4 of his prep. He had 2 black stools. Mr. Parker is sleeping soundly, it is difficult to arouse him, he is not oriented to person, place o r time. PHYSICAL EXAMINATION: VITAL SIGNS: Temperature is 98, blood pressure 147/75 this morning, pulse is 84. CHEST: He has got coarse breath sounds. GI: Abdomen is slightly protuberant, very soft and nontender. LABORATORY STUDIES: Hemoglobin was 5.8 this morning. It was 6 yesterday, he received 1 unit of bloo d yesterday. Protonix has been changed to 40 IV q.12h., he is on no blood thinners. White count 10.8, hemoglobin 5.8, platelet count 247. INR on the was 1.2, BUN is 49, creatinine 0.76. ASSESSMENT: Persistent transfusion requirements and continuing dropping hemoglobin. He is hemodynam ically stable. He has melena, likely this is gastrointestinal bleeding. Tagged scan said the blood was accumulating in the left colon, but this was at the end of the study. It is very likely that thi s bleeding is related to a severe esophagitis. This is all melenic and his BUN is increasing. We wi ll plan to repeat upper endoscopy and a colonoscopy today; however, he has drank none of this prep, h e is confused. He is sleepy. He has had to use BiPAP at night. RECOMMENDATIONS: I think it is futile to try to get this patient to drink a bowel prep. If a colono scopy is desired he is going to have to be moved to the ICU and probably intubated and have an NG tu be placed and give him a prep that way. We can continue to try to get him to drink a bowel prep and we can repeat his endoscopy tomorrow if there are signs of significant bleeding, I would again recomm end moving him to the ICU, intubating him, putting an NG tube down and giving him a bowel prep. I do not think a bowel prep through an NG tube is appropriate on the floor or in the ICU in this patient with his altered mental status as he is at risk for aspiration and signs of gastroparesis with previo us endoscopy. We will continue to follow along with you. I agree with transfusing as you are doing.
[2017-12-20] MEDS: Pantoprazole 40 MG VIAL IVP SCH ×2 (10:24→21:09)
[2017-12-20] MEDS: Hydrocortisone Sod Succ/PF 100 mg/2 ml Vial IVP SCH (10:24)
[2017-12-20] MEDS: Gabapentin 100 MG CAP PO SCH (10:24)
[2017-12-20] MEDS: Dutasteride 0.5 MG CAP PO SCH (10:25)
[2017-12-20] MEDS: Bacitracin Zinc 1 Packet TOP SCH (10:25)
[2017-12-20] MEDS: Folic Acid 1 MG TAB PO SCH (10:25)
[2017-12-20] MEDS: Cyanocobalamin (Vitamin B-12) 1,000 MCG TAB PO SCH (10:25)
[2017-12-20] MEDS: Ascorbic Acid 500 mg Chewable Tablet PO SCH (10:25)
[2017-12-20] MEDS: Sulfameth/Trimethoprim DS 800-160mg TAB PO SCH ×2 (10:26→21:10)
[2017-12-20] MEDS: Tamsulosin HCl 0.4 MG CAP PO SCH (10:26)
[2017-12-20] MEDS: Megestrol Acetate 40 MG TAB PO SCH (10:26)
[2017-12-20] MEDS: Saccharomyces boulardii 250 MG CAP PO SCH (10:26)
[2017-12-20] MEDS: Senokot S 8.6-50 MG TAB PO SCH ×2 (10:26→21:10)
[2017-12-20] MEDS: Polyethylene Glycol 3350 17 GM Packet PER TUBE SCH (10:26)
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
[2017-12-20] MEDS ORDERED: Propofol 1,000 MG/100 ML VIAL IV ONE (12:47)
[2017-12-20] MEDS ORDERED: GoLYTELY 4,000 ml Bottle PO SCH (13:15)
[2017-12-20 13:22] LABS: Actual Bicarbonate (HCO3a) 26.2 mEq/L (22-26); Base Excess (BEa) 0.2 mEq/L (0 (+/-) 2.5); CO2 Tension 48.8 mmHg (35.0-45.0); Hematocrit-ABG 29.3 % (42.0-52.0); O2 Tension (PaO2) 176.1 mmHg (80.0-100.0); pH, Arterial 7.35 (7.35-7.45)
[2017-12-20 13:23] LABS: Calcium, Ionized 1.1 mmol/L (1.12-1.30)
[2017-12-20 13:24] LABS: Puncture Site L.R.
[2017-12-20] MEDS ORDERED: Sedation Protocol FS ONE (13:46)
[2017-12-20] MEDS ORDERED: Lorazepam 2 MG/ML VIAL SLOW IVP PRN (13:56)
[2017-12-20] MEDS ORDERED: DISCONTINUE PREVIOUS NARCOTIC PAIN MEDICATIONS AND BENZODIAZEPINES FS SCH (13:56)
[2017-12-20] MEDS ORDERED: fentaNYL Citrate/PF 2,000 MCG in Sodium Chloride 0.9% 60 ML IV SCH (13:56)
[2017-12-20] MEDS ORDERED: Magnesium Sulfate 3 GM in Sodium Chloride 0.9% 100 ML IVPB SCH (14:30)
[2017-12-20] MEDS: Piperacillin/Tazobactam 3.375 GM in Sodium Chloride 0.9% 100 ML IVPB SCH ×2 (14:34→21:10)
[2017-12-20] MEDS: Dextrose 5 % And 0.9 % NaCl 1,000 ML IV SCH (14:36)
--- NOTE | 2017-12-20 14:41 | RAD ---
SINGLE VIEW OF THE CHEST: COMPARISON: 12/19/17. HISTORY: Intubated patient with respiratory failure. FINDINGS: A single view of the chest shows a normal-size cardiomediastinal silhouette. The lines and tubes are unchanged in position. There appears to be an airspace opacity in the right lower lobe, slightly im proved. IMPRESSION: Improving right lower lobe pneumonia. POS: [facility]
[2017-12-20] MEDS: Bisacodyl 10 MG SUPP PR SCH ×2 (14:52→21:08)
--- NOTE | 2017-12-20 15:40 | RAD ---
KUB: 12/20/17 COMPARISON: None. HISTORY: Gastrostomy tube placement. FINDINGS: Single view of the abdomen shows a nonspecific, nonobstructive bowel gas pattern. An NG tube is seen with its tip in the left upper quadrant of the abdomen, likely within the stomach. Postsurgical collado ges are seen in the spine. IMPRESSION: NG tube located in the stomach. POS: [facility]
[2017-12-20] MEDS ORDERED: Lidocaine 1% PF 5 ML VIAL ONE (15:53)
[2017-12-20] MEDS ORDERED: PHENYLEPHRINE-NS 100 MCG/ML 10 ML SYRINGE ONE (15:53)
[2017-12-20] MEDS ORDERED: Propofol 200 MG/20 ML VIAL ONE (15:53)
[2017-12-20] MEDS: TAP WATER ENEMA PR SCH ×2 (16:22→22:35)
[2017-12-20] MEDS: Fleet Enema 133 ML BOT PR SCH ×2 (17:14→23:23)
[2017-12-20 17:42] LABS: Hemoglobin 8.2 g/dL (14.0-18.0)
[2017-12-20] MEDS: Propofol 1,000 MG/100 ML VIAL IV PRN (17:49)
--- NOTE | 2017-12-20 21:19 | OP ---
PREPROCEDURE DIAGNOSES: 1. Gastrointestinal bleed, recurrent transfusion requirements, please see my notes from today and co nsultation from yesterday. 2. Esophagogastroduodenoscopy on 12/13/2016 showed a large ulcer, LA grade D esophagitis in distal e sophagus, a liter and half of coffee ground material in the stomach at that time and coffee-ground ma terial in the duodenum as well precluding full visualization. POSTPROCEDURE DIAGNOSES: Today, 1. Ulcer distal esophagus, LA grade D, no active bleeding. 2. Small hiatal hernia. 3. Small amount of coffee ground material in the stomach. 4. Duodenal bulb ulcer, posterior wall, yellow based with one area of redness, cauterized to see if this is the vessel, there was no active bleeding from it, I suspect it was not. 5. Enterography was performed to evaluate distal small bowel further down for ulcers or erosions, wh ich was negative. 6. Colonoscopy was attempted, but aborted secondary to a large fecal impaction in the rectum. This was broken up digitally. RECOMMENDATIONS: 1. Keep patient intubated, return to the ICU. 2. Serial H and Hs q.12 hours. 3. Complete transfusion of 2 units from today. 4. IV Protonix q.12 hours. 5. Bowel prep via GoLYTELY slowly via NG tube once position confirmed radiologically and colonoscopy tomorrow if patient continues to have signs of blood loss. If he has no signs of blood loss, we wou ld attribute his findings from the tagged red blood cell scan yesterday to slow transit of blood from the upper gastrointestinal tract. He has black tarry stool in his rectum and that is typically what is seen from bleeding from the left colon. If there are no further signs of bleeding and stable hem oglobin, I would not put him through a colonoscopy at this time. 6. We will consult Pulmonology to help with the ventilator as he has been a patient of Dr. Bryan for many years. I talked with the patient's daughter and she prefers this. ANESTHESIA: General endotracheal anesthesia. PROCEDURE IN DETAIL: After the patient was informed of the risks, benefits, possible complications o f endoscopy including perforation, bleeding, reactions to medication and aspiration, informed consent was obtained. The patient brought to endoscopy suite where he was intubated for airway protection. The endoscope was advanced through the esophagus where the ulcerations of the distal esophagus, LA g rade D with some erosions, but no visible vessel active bleeding, no varices were noted. The stomach was entered and found to be notable for a small hiatal hernia. There was a little bit of coffee familia und material. They were less than 10-20 mL. Retroflexed views were normal with no bleeding sites id entified. Forward views in the antrum and body were normal. The duodenal bulb was entered and there was a yellow based ulcer in the posterior wall of the bulb. There was a slight area of erythema, wh ich was cauterized with 10 [place] heater probe. There was no bleeding from this. I suspect this was just an area of erythema, not a visible vessel. Due to the redundant stomach, the scope could not b e advanced much beyond the apex of the duodenal bulb. The scope was removed and a colonoscope was us ed to evaluate the distal duodenum and proximal jejunum with no other bleeding sites identified. The scope was then removed. The stomach was desufflated. The patient was turned in the room. A rectal examination was performed with a goal of performing colonoscopy, large fecal impaction was noted. T his had to be broken up as much as we could by hand, it was not in any condition to perform a colonos copy and from a standpoint there has been no visualization. Therefore, the colonoscopy was aborted a nd the decision was made to return the patient actually not to the floor, but to the ICU, keep him in tubated to get his bowel prep for colonoscopy tomorrow if there is ongoing bleeding. In the meantime , we will change him from oral once a day Protonix to q.12 hours IV PPIs.
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
[2017-12-21] MEDS: Bisacodyl 10 MG SUPP PR SCH ×6 (01:10→19:54)
[2017-12-21] MEDS: Acetaminophen 500 MG TAB PO SCH ×2 (01:22→05:31)
[2017-12-21] MEDS: Fleet Enema 133 ML BOT PR SCH ×6 (02:25→21:56)
[2017-12-21] MEDS: Propofol 1,000 MG/100 ML VIAL IV PRN ×4 (02:39→19:57)
[2017-12-21] MEDS: TAP WATER ENEMA PR SCH ×6 (02:53→21:00)
[2017-12-21] MEDS: Piperacillin/Tazobactam 3.375 GM in Sodium Chloride 0.9% 100 ML IVPB SCH ×4 (03:16→20:22)
[2017-12-21] MEDS: Dextrose 5 % And 0.9 % NaCl 1,000 ML IV SCH ×2 (03:16→17:48)
[2017-12-21 05:46] LABS: INR-International Normal Ratio 1.1; Prothrombin Time 14.6 SEC (12.0-14.7)
[2017-12-21 05:53] LABS: Anion Gap 12 mmol/L (10-20); BUN (Urea Nitrogen) 29 mg/dL (8.4-25.7); Calc. Creatinine Clearance 99 mL/min (70-130); Calcium 7.5 mg/dL (7.8-10.44); Carbon Dioxide 23 mmol/L (23-31); Chloride 109 mmol/L (98-107); Estimated GFR-MDRD Greater than 90; Glucose 134 mg/dL (83-110); Magnesium 2.2 mg/dL (1.6-2.6); Phosphorus 3.3 mg/dL (2.3-4.7); Potassium 3.8 mmol/L (3.5-5.1); Sodium 140 mmol/L (136-145)
[2017-12-21 06:33] LABS: Band 1 % (5-11); Hemoglobin 7.5 g/dL (14.0-18.0); Lymphocytes 3 % (21-51); MDiff Complete? YES; Mean Corpuscular HGB CONC 33.1 g/dL (32.0-36.0); Mean Corpuscular Hemoglobin 32.3 pg (27.0-31.0); Mean Corpuscular Volume 97.4 fl (80.0-94.0); Mean Platelet Volume 6.2 fL (7.4-10.4); Monocytes 5 % (0-10); Neutrophil 91 % (42-75); Platelet Count 241 thou/uL (130-400); RBC Distribution Width 17.7 % (11.5-14.5); Red Blood Cell (RBC) Count 2.33 mill/uL (4.70-6.10); White Blood Cell (WBC) Count 7.5 thou/uL (4.8-10.8)
[2017-12-21] MEDS: Pantoprazole 40 MG VIAL IVP SCH ×2 (08:52→20:07)
[2017-12-21 08:53] LABS: Actual Bicarbonate (HCO3a) 24.1 mEq/L (22-26); Base Excess (BEa) 0.9 mEq/L (0 (+/-) 2.5); CO2 Tension 31.9 mmHg (35.0-45.0); Hematocrit-ABG 22.3 % (42.0-52.0); Hemoglobin (Hb) 7.7 g/dL (14.0-18.0)
[2017-12-21] MEDS: Cyanocobalamin (Vitamin B-12) 1,000 MCG TAB PO SCH (08:53)
[2017-12-21] MEDS: Senokot S 8.6-50 MG TAB PO SCH ×2 (08:53→20:07)
[2017-12-21] MEDS: Saccharomyces boulardii 250 MG CAP PO SCH ×2 (08:53→09:21)
[2017-12-21] MEDS: Folic Acid 1 MG TAB PO SCH (08:53)
[2017-12-21] MEDS: Bacitracin Zinc 1 Packet TOP SCH (08:53)
[2017-12-21] MEDS: Dutasteride 0.5 MG CAP PO SCH ×3 (08:53→09:27)
[2017-12-21 08:54] LABS: ALV-art Gradient -127.075 (0-20); Analyzer IN Cardio ER; Calcium, Ionized 1.1 mmol/L (1.12-1.30); Puncture Site L.B.
[2017-12-21] MEDS: Sulfameth/Trimethoprim DS 800-160mg TAB PO SCH ×2 (09:20→20:07)
[2017-12-21] MEDS: Tamsulosin HCl 0.4 MG CAP PO SCH (09:20)
[2017-12-21] MEDS: Acetaminophen 325 MG TAB PO SCH ×4 (09:24→20:07)
--- NOTE | 2017-12-21 12:16 | RAD ---
SINGLE VIEW OF THE CHEST: COMPARISON: 12/20/17 at 1:38 p.m. HISTORY: Ventilated patient with respiratory failure. FINDINGS: A single view of the chest shows an enlarged cardiomediastinal silhouette with atherosclerotic calcif ications in the aorta. The lines and tubes are unchanged in position. There appears to be an infilt rate in the right lower lobe. Small bilateral pleural effusions may also be present. IMPRESSION: Stable exam. POS: CHRISTIANE
[2017-12-21] MEDS ORDERED: Midazolam HCl 2 mg/2 ml Vial ONE (13:23)
[2017-12-21] MEDS ORDERED: Fentanyl 100 MCG/2 ML VIAL ONE (13:23)
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
[2017-12-21 16:26] LABS: Hemoglobin 7.3 g/dL (14.0-18.0)
--- NOTE | 2017-12-21 17:54 | OP ---
PROCEDURE: Flexible sigmoidoscopy. PREPROCEDURE DIAGNOSES: 1. Tagged red blood cell scan showing questionable bleeding in the left colon 2 days ago. This was on the last imaging at 90 minutes, it may just been residual concentration of bleeding from upper gas trointestinal tract. The patient has known upper gastrointestinal tract ulcers in the esophagus and duodenum; however, these were yellow based and without signs of active bleeding. 2. With ongoing transfusion requirements, decision was made to proceed with colonoscopy. POSTPROCEDURE DIAGNOSIS: Fecal impaction with large black ball of stool, which is hard and likely is subsequent to all the iron he has been prescribed. The patient is unable to tolerate colonoscopy. He will have to be re-prepped again for tomorrow. ANESTHESIA: The patient is on a ventilator in the ICU. PROCEDURE IN DETAIL: After the patient's family gave informed consent to undergo colonoscopy yesterd ay as he had a fecal impaction. After being prepped all last night and today, he was placed in left lateral decubitus position. Rectal examination was performed and revealed liquid stool, somewhat ran k. We felt like we could probably irrigate this out and get an exam done today in light of the fact that he has been receiving blood daily for about 3 weeks now. The rectum was normal, but the scope r an into a firm large impaction in the upper rectum, lower sigmoid colon. The procedure was aborted a fter manual disimpaction was performed as best as possible. RECOMMENDATIONS: I have asked the nurse to continue enemas q.4 hours with suppositories, manual disi mpaction, and continued GoLYTELY q.3 hours until the patient is clear. We will reassess tomorrow.
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
[2017-12-21] MEDS: GoLYTELY 4,000 ml Bottle PER TUBE SCH (22:50)
[2017-12-22] MEDS: Bisacodyl 10 MG SUPP PR SCH ×3 (00:13→08:19)
[2017-12-22] MEDS: Acetaminophen 325 MG TAB PO SCH ×6 (00:13→21:00)
[2017-12-22] MEDS: TAP WATER ENEMA PR SCH ×3 (01:10→08:21)
[2017-12-22] MEDS: Fleet Enema 133 ML BOT PR SCH ×3 (01:24→19:20)
[2017-12-22] MEDS: GoLYTELY 4,000 ml Bottle PER TUBE SCH ×3 (02:05→19:21)
[2017-12-22] MEDS: Piperacillin/Tazobactam 3.375 GM in Sodium Chloride 0.9% 100 ML IVPB SCH ×4 (03:12→21:01)
[2017-12-22] MEDS: Propofol 1,000 MG/100 ML VIAL IV PRN ×4 (05:16→21:01)
[2017-12-22 05:28] LABS: Anion Gap 13 mmol/L (10-20); BUN (Urea Nitrogen) 18 mg/dL (8.4-25.7); Calc. Creatinine Clearance 108 mL/min (70-130); Calcium 7.5 mg/dL (7.8-10.44); Carbon Dioxide 23 mmol/L (23-31); Chloride 109 mmol/L (98-107); Estimated GFR-MDRD Greater than 90; Glucose 125 mg/dL (83-110); Potassium 3.6 mmol/L (3.5-5.1); Sodium 141 mmol/L (136-145)
[2017-12-22] MEDS: Dextrose 5 % And 0.9 % NaCl 1,000 ML IV SCH (05:30)
[2017-12-22 06:28] LABS: Hemoglobin 7.3 g/dL (14.0-18.0); Mean Corpuscular Hemoglobin 32.7 pg (27.0-31.0); Mean Corpuscular Volume 99.3 fl (80.0-94.0); Mean Platelet Volume 5.9 fL (7.4-10.4); Platelet Count 232 thou/uL (130-400); RBC Distribution Width 17.8 % (11.5-14.5); Red Blood Cell (RBC) Count 2.23 mill/uL (4.70-6.10); White Blood Cell (WBC) Count 6.3 thou/uL (4.8-10.8)
[2017-12-22 06:47] LABS: Band 5 % (5-11); Lymphocytes 7 % (21-51); MDiff Complete? YES; Monocytes 3 % (0-10); Neutrophil 85 % (42-75)
[2017-12-22 07:18] LABS: Actual Bicarbonate (HCO3a) 23.6 mEq/L (22-26); Base Excess (BEa) 0.4 mEq/L (0 (+/-) 2.5); CO2 Tension 31.4 mmHg (35.0-45.0); Hemoglobin (Hb) 7.1 g/dL (14.0-18.0); O2 Tension (PaO2) 176.2 mmHg (80.0-100.0); pH, Arterial 7.49 (7.35-7.45)
[2017-12-22 07:19] LABS: Analyzer IN Cardio ER; Calcium, Ionized 1.1 mmol/L (1.12-1.30); Puncture Site LB
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
[2017-12-22] MEDS: Bacitracin Zinc 1 Packet TOP SCH (08:19)
[2017-12-22] MEDS: Folic Acid 1 MG TAB PO SCH (08:19)
[2017-12-22] MEDS: Tamsulosin HCl 0.4 MG CAP PO SCH (08:19)
[2017-12-22] MEDS: Pantoprazole 40 MG VIAL IVP SCH ×2 (08:19→21:00)
[2017-12-22] MEDS: Cyanocobalamin (Vitamin B-12) 1,000 MCG TAB PO SCH (08:20)
[2017-12-22] MEDS: Senokot S 8.6-50 MG TAB PO SCH ×2 (08:20→21:01)
[2017-12-22] MEDS: Saccharomyces boulardii 250 MG CAP PO SCH (08:20)
[2017-12-22] MEDS: Dutasteride 0.5 MG CAP PO SCH (08:20)
--- NOTE | 2017-12-22 10:32 | RAD ---
PORTABLE AP CHEST XRAY: DATE: 12/22/17. HISTORY: On ventilator. Followup evaluation. COMPARISON: 12/21/17. FINDINGS: Endotracheal tube, nasogastric tube, and right subclavian central venous catheter remain in place and unchanged in position. The parenchymal opacities seen at each lung base on the prior study have imp roved which may be related to improving atelectasis. The inferior aspect of the left lateral costoph renic angle is excluded from view. The lungs otherwise appear clear. Cardiac silhouette and pulmona ry vasculature are within normal limits for the portable technique of the study. No other interval c hange. IMPRESSION: 1. Improved aeration at each lung base which may be related to improvement in atelectasis or improve ment in pneumonitis. 2. Lines and tubes stable in position. POS: CHRISTIANE
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
--- NOTE | 2017-12-22 12:33 | OP ---
DATE OF PROCEDURE: 12/22/2017 PROCEDURES: Colonoscopy, polypectomy snare. PREPROCEDURE DIAGNOSES: 1. Recurrent need for transfusion. 2. Tagged scan on Friday, 2 days ago, suggestive of possible bleeding in the left colon. 3. EGD showed ulcer at the GE junction and duodenum. 4. Fecal impaction large, disimpacted over the last 2 days. POSTPROCEDURE DIAGNOSES: 1. Very poor prep irrigated, clear to rule out large lesions or bleeding sites with 1.[address] erile water. 2. Normal terminal ileum. 3. Diffuse diverticulosis coli. 4. Two polyps in the sigmoid colon, 5-mm and 6-mm in size, removed by hot snare polypectomy. 5. No bleeding sources identified. RECOMMENDATIONS: 1. Continue IV PPI q.12. 2. Continue probiotics. 3. Start tube feeds. 4. At this time, there are no signs of colitis or GI bleeding sources. I suspect the delayed positi ve images on the tagged scan over the weekend were probably related to upper gastrointestinal loss, c annot rule out the possibility of small bowel loss, but his hemoglobin has been stable now and I woul d discontinue the present management. ANESTHESIA: General endotracheal anesthesia. PROCEDURE IN DETAIL: After the patient's was informed of the risks, benefits, possible complica tions, also the reason we kept him intubated to ensure a prep without risk of aspiration as he had di minished mental status when I saw him over the weekend and the fact that he had required CPAP which w ould mean that he would not tolerate sedation for endoscopy without intubation, we had kept him intub ated after his EGD. He had been prepped over 2 days, disimpacting a large amount of stool, and takin g almost 2 liters of GoLYTELY to get prepped. He was placed on his left decubitus and sedated with p ropofol in the Intensive Care Unit. The endoscope was advanced through anal canal through the colon to cecum and terminal ileum. The prep was still poor with a lot of black stool. This is not melena, but the residual effects of copious amounts of oral iron. This was all irrigated away and suctioned over about 30 minutes and the colon could be examined. There were diverticulosis coli diffusely. T here were no stigmata of bleeding, colitis, C. diff, or ischemic colitis anywhere in the colon, speci fically the left colon showed no bleeding sites or visible vessels or ulcers or erosions. No diverti cula spots of blood. There were 2 polyps in the sigmoid colon that were 5-6 mm in size, removed by h ot snare polypectomy with good hemostasis. Retroflexed views in the rectum were performed and were n ormal. The endoscopy could have missed small polyps less than 5 mm in size, but no masses or lesions were seen. The terminal ileum was normal with no signs of melena coming from above. The scope was removed. The patient tolerated the procedure well with no complications.
--- NOTE | 2017-12-22 13:42 | PRG ---
DATE OF SERVICE: 12/22/2017 Mr. Parker is for another colonoscopy today. PHYSICAL EXAMINATION: Blood pressure 144/55, heart rate is 85, respiratory rate 8. LUNGS: Clear. HEART: Regular rhythm. ABDOMEN: Soft. His sedation was held. His negative inspiratory force was measured and it was greater than negative 40. LABORATORY: White count 6.3, hemoglobin 7.3, it was 8.2 two days ago, platelets 232,000. Sodium 141, potassium 3.6, chloride 109, bicarbonate 23, BUN 18, creatinine 0.68. IMPRESSION: 1. Respiratory failure secondary to retained secretions. 2. Advanced obstructive lung disease, longstanding with tobacco use up until this admission. 3. Fecal impaction. Dr. Wong has disimpacted him twice. 4. Gastrointestinal blood loss, possibly from an upper source or stercoral ulcer. Colonoscopy will help sort through this. I doubt he has ischemic bowel and loss from that. He has had no intraperitoneal or retroperitoneal bleeding by imaging studies, but has required multiple transfusions. There is no reason to suggest that he is having hemolytic anemia. He is not a candidate for extubation today. I would get him through his colonoscopy and reassess him in the morning. Critical care time 30 min. VILMA
[2017-12-22] MEDS: Sodium Chloride 0.9% 1,000 ML IV SCH (14:26)
[2017-12-22 16:23] LABS: Hemoglobin 7.5 g/dL (14.0-18.0)
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
[2017-12-23] MEDS: Acetaminophen 325 MG TAB PO SCH ×6 (00:08→20:24)
[2017-12-23] MEDS: Propofol 1,000 MG/100 ML VIAL IV PRN ×2 (02:40→06:39)
[2017-12-23] MEDS: Piperacillin/Tazobactam 3.375 GM in Sodium Chloride 0.9% 100 ML IVPB SCH ×4 (02:40→20:28)
[2017-12-23] MEDS: Sodium Chloride 0.9% 1,000 ML IV SCH ×2 (04:06→15:04)
[2017-12-23 04:42] LABS: Anion Gap 11 mmol/L (10-20); BUN (Urea Nitrogen) 14 mg/dL (8.4-25.7); Calc. Creatinine Clearance 103 mL/min (70-130); Calcium 7.5 mg/dL (7.8-10.44); Carbon Dioxide 22 mmol/L (23-31); Chloride 109 mmol/L (98-107); Estimated GFR-MDRD Greater than 90; Glucose 141 mg/dL (83-110); Potassium 3.8 mmol/L (3.5-5.1); Sodium 138 mmol/L (136-145)
[2017-12-23 04:46] LABS: Band 1 % (5-11); Hemoglobin 7.4 g/dL (14.0-18.0); Lymphocytes 4 % (21-51); MDiff Complete? YES; Mean Corpuscular HGB CONC 32.3 g/dL (32.0-36.0); Mean Corpuscular Hemoglobin 32.3 pg (27.0-31.0); Mean Platelet Volume 5.8 fL (7.4-10.4); Monocytes 11 % (0-10); Neutrophil 84 % (42-75); Platelet Count 213 thou/uL (130-400); RBC Distribution Width 17.2 % (11.5-14.5); Red Blood Cell (RBC) Count 2.28 mill/uL (4.70-6.10); White Blood Cell (WBC) Count 6.1 thou/uL (4.8-10.8)
[2017-12-23 08:24] LABS: CO2 Tension 33.8 mmHg (35.0-45.0); pH, Arterial 7.45 (7.35-7.45)
[2017-12-23 08:25] LABS: Actual Bicarbonate (HCO3a) 22.7 mEq/L (22-26); Base Excess (BEa) -1.2 mEq/L (0 (+/-) 2.5); O2 Tension (PaO2) 169.5 mmHg (80.0-100.0)
[2017-12-23 08:26] LABS: Calcium, Ionized 1.1 mmol/L (1.12-1.30)
[2017-12-23 08:27] LABS: Puncture Site LB
--- NOTE | 2017-12-23 08:27 | RAD ---
AP CHEST: History: Ventilator dependent patient. Date: 12-23-17 Comparison: 12-22-17 FINDINGS: AP chest demonstrates a nasogastric, endotracheal tube, as well as right subclavian triple lumen cath eter in place. Some cardiomegaly is present. Pulmonary vascular congestion is noted. A small left yue ed pleural effusion is seen. No significant interval change is seen since the previous comparison exa m. No evidence of pneumothorax seen. IMPRESSION: 1. Stable AP chest with lines and tubes in place. POS: CHRISTIANE
[2017-12-23] MEDS: Pantoprazole 40 MG VIAL IVP SCH ×2 (09:02→20:24)
[2017-12-23] MEDS: Dutasteride 0.5 MG CAP PO SCH (09:02)
[2017-12-23] MEDS: Bacitracin Zinc 1 Packet TOP SCH (09:03)
[2017-12-23] MEDS: Saccharomyces boulardii 250 MG CAP PO SCH (09:03)
[2017-12-23] MEDS: Folic Acid 1 MG TAB PO SCH (09:03)
[2017-12-23] MEDS: Ferrous Sulfate 325 MG TAB PO SCH ×2 (09:03→15:58)
[2017-12-23] MEDS: Cyanocobalamin (Vitamin B-12) 1,000 MCG TAB PO SCH (09:03)
[2017-12-23] MEDS: Senokot S 8.6-50 MG TAB PO SCH ×2 (09:04→20:24)
[2017-12-23] MEDS: Tamsulosin HCl 0.4 MG CAP PO SCH (09:04)
[2017-12-23] MEDS: Ascorbic Acid 500 mg Chewable Tablet PO SCH ×2 (09:04→20:24)
[2017-12-23] MEDS: Morphine 2 MG/ML SYRINGE SLOW IVP PRN ×2 (12:10→16:07)
[2017-12-23] MEDS ORDERED: Morphine 2 MG/ML SYRINGE SLOW IVP SCH (12:15)
[2017-12-23] MEDS: Scopolamine 1.5 mg/72 hour Patch TD SCH (16:07)
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
[2017-12-23] MEDS: Morphine 4 MG/ML Carpuject SLOW IVP PRN (20:25)
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
[2017-12-24] MEDS: Acetaminophen 325 MG TAB PO SCH ×4 (00:01→14:18)
[2017-12-24] MEDS: Morphine 4 MG/ML Carpuject SLOW IVP PRN (00:02)
[2017-12-24] MEDS: Piperacillin/Tazobactam 3.375 GM in Sodium Chloride 0.9% 100 ML IVPB SCH ×5 (02:25→23:36)
[2017-12-24] MEDS: hydrALAZINE 20 MG/ML VIAL SLOW IVP PRN (02:25)
[2017-12-24 04:24] LABS: Anion Gap 11 mmol/L (10-20); BUN (Urea Nitrogen) 14 mg/dL (8.4-25.7); Calc. Creatinine Clearance 105 mL/min (70-130); Calcium 7.8 mg/dL (7.8-10.44); Carbon Dioxide 23 mmol/L (23-31); Chloride 107 mmol/L (98-107); Estimated GFR-MDRD Greater than 90; Glucose 106 mg/dL (83-110); Potassium 3.9 mmol/L (3.5-5.1); Sodium 137 mmol/L (136-145)
[2017-12-24 05:06] LABS: Band 2 % (5-11); Hemoglobin 8.2 g/dL (14.0-18.0); Lymphocytes 7 % (21-51); MDiff Complete? YES; Mean Corpuscular HGB CONC 31.5 g/dL (32.0-36.0); Mean Corpuscular Hemoglobin 31.9 pg (27.0-31.0); Mean Platelet Volume 5.9 fL (7.4-10.4); Monocytes 2 % (0-10); Neutrophil 89 % (42-75); Platelet Count 209 thou/uL (130-400); RBC Distribution Width 16.7 % (11.5-14.5); Red Blood Cell (RBC) Count 2.58 mill/uL (4.70-6.10); White Blood Cell (WBC) Count 6.1 thou/uL (4.8-10.8)
[2017-12-24] MEDS: Sodium Chloride 0.9% 1,000 ML IV SCH (06:20)
--- NOTE | 2017-12-24 09:25 | RAD ---
CHEST ONE VIEW: History: Respiratory distress. Ventilated patient. Comparison: 12-23-17 FINDINGS: Interval removal endotracheal and nasogastric tubes. Stable configuration of the cardiac silhouette. There is atherosclerosis of the aorta. Bibasilar pleural and parenchymal changes. No pneumothorax. Stable right sided central venous catheter. IMPRESSION: 1. Bibasilar interstitial and alveolar infiltrates. 2. Atherosclerosis. 3. Interval removal of endotracheal and nasogastric tubes. POS: [facility]
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
[2017-12-24] MEDS: Ferrous Sulfate 325 MG TAB PO SCH ×2 (11:07→18:07)
[2017-12-24] MEDS: Ascorbic Acid 500 mg Chewable Tablet PO SCH ×2 (11:08→20:16)
[2017-12-24] MEDS: Bacitracin Zinc 1 Packet TOP SCH (11:08)
[2017-12-24] MEDS: Folic Acid 1 MG TAB PO SCH (11:09)
[2017-12-24] MEDS: Cyanocobalamin (Vitamin B-12) 1,000 MCG TAB PO SCH (11:09)
[2017-12-24] MEDS: Dutasteride 0.5 MG CAP PO SCH (11:09)
[2017-12-24] MEDS: Pantoprazole 40 MG VIAL IVP SCH ×2 (11:10→20:16)
[2017-12-24] MEDS: Senokot S 8.6-50 MG TAB PO SCH ×3 (11:11→20:25)
[2017-12-24] MEDS: Saccharomyces boulardii 250 MG CAP PO SCH (11:11)
[2017-12-24] MEDS: Tamsulosin HCl 0.4 MG CAP PO SCH (11:12)
[2017-12-24] MEDS: Acetaminophen 500 MG TAB PO SCH ×2 (11:13→18:08)
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
[2017-12-24] MEDS: traMADol HCl 50 MG TAB PO PRN (15:19)
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
[2017-12-25] MEDS: Acetaminophen 500 MG TAB PO SCH ×5 (04:04→23:49)
[2017-12-25] MEDS: Piperacillin/Tazobactam 3.375 GM in Sodium Chloride 0.9% 100 ML IVPB SCH ×4 (05:43→23:50)
[2017-12-25 06:42] LABS: Anion Gap 7 mmol/L (10-20); BUN (Urea Nitrogen) 26 mg/dL (8.4-25.7); Calc. Creatinine Clearance 103 mL/min (70-130); Calcium 7.8 mg/dL (7.8-10.44); Carbon Dioxide 27 mmol/L (23-31); Chloride 108 mmol/L (98-107); Estimated GFR-MDRD Greater than 90; Glucose 130 mg/dL (83-110); Potassium 3.9 mmol/L (3.5-5.1); Sodium 138 mmol/L (136-145)
[2017-12-25 06:47] LABS: Mean Corpuscular HGB CONC 32.4 g/dL (32.0-36.0); Mean Corpuscular Hemoglobin 33.1 pg (27.0-31.0); Mean Platelet Volume 5.8 fL (7.4-10.4); Platelet Count 214 thou/uL (130-400); RBC Distribution Width 16.1 % (11.5-14.5); White Blood Cell (WBC) Count 7.6 thou/uL (4.8-10.8)
[2017-12-25 08:55] LABS: Band 4 % (5-11); Lymphocytes 8 % (21-51); MDiff Complete? YES; Macrocytosis SLIGHT = 6-15 cells (100X) (0-5/hpf); Monocytes 6 % (0-10); Neutrophil 82 % (42-75); PLT Morphology Comment Appears Adequate; Polychromasia SLIGHT = 2-3 cells (100X) (0-2/hpf)
[2017-12-25] MEDS: Dutasteride 0.5 MG CAP PO SCH (09:02)
[2017-12-25] MEDS: Folic Acid 1 MG TAB PO SCH (09:02)
[2017-12-25] MEDS: Cyanocobalamin (Vitamin B-12) 1,000 MCG TAB PO SCH (09:02)
[2017-12-25] MEDS: Ferrous Sulfate 325 MG TAB PO SCH ×2 (09:02→18:13)
[2017-12-25] MEDS: Tamsulosin HCl 0.4 MG CAP PO SCH (09:02)
[2017-12-25] MEDS: Saccharomyces boulardii 250 MG CAP PO SCH (09:02)
[2017-12-25] MEDS: Ascorbic Acid 500 mg Chewable Tablet PO SCH ×2 (09:02→20:09)
[2017-12-25] MEDS: Bacitracin Zinc 1 Packet TOP SCH (09:09)
[2017-12-25] MEDS: Pantoprazole 40 MG VIAL IVP SCH ×2 (09:13→21:55)
--- NOTE | 2017-12-25 09:38 | RAD ---
AP VIEW CHEST: Date: 12/25/17 INDICATION: Intubation. COMPARISON: Prior exam dated 12/24/17. FINDINGS: Bibasilar opacities persist. Mild cardiomegaly is stable. Right subclavian central venous catheter is unchanged. No pneumothorax is evident. IMPRESSION: Stable exam. POS: [facility]
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
[2017-12-25] MEDS: Senokot S 8.6-50 MG TAB PO SCH ×2 (18:12→20:10)
--- NOTE | 2017-12-25 18:57 | PRG ---
DATE OF SERVICE: 12/25/2017 SUBJECTIVE: Mr. Parker did well. He is afebrile. He is still disoriented. OBJECTIVE: VITAL SIGNS: Heart rate is 86, respiratory rate is 20, oximetry is 100% on 2 liters, blood pressure 119/68. GENERAL: He thought he was sitting in the chair when I examined him in bed today, he did sit up in t he chair earlier in the day. LUNGS: Remarkable for very few rhonchi. HEART: Regular rhythm. ABDOMEN: Soft. Intake and output is negative 323. IMPRESSION AND PLAN: 1. Pneumonia, hospital-acquired. 2. Chronic obstructive pulmonary disease exacerbation leading to respiratory failure with retained s ecretions. 3. Status post mechanical ventilation for several days for chronic obstructive pulmonary disease. 4. Status post gastrointestinal blood loss from an upper source. 5. Status post impaction that has been relieved. 6. Extreme deconditioning. He will need rehab or long-term acute care. I will suspect these 3-4 we eks at least for 4 each functional again. I am not sure when he would be able to go to the house. Yosef velez has good family support, but does not have family support that would be able to lift him or help mo ve him. We will continue to follow. I think it would be best served because of his respiratory issues recent ly to stay in the intermediate care unit.
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
[2017-12-26] MEDS: Acetaminophen 500 MG TAB PO SCH ×2 (05:36→12:45)
[2017-12-26] MEDS: Piperacillin/Tazobactam 3.375 GM in Sodium Chloride 0.9% 100 ML IVPB SCH ×3 (05:36→17:06)
[2017-12-26 05:53] LABS: Hemoglobin 5.7 g/dL (14.0-18.0); Mean Corpuscular HGB CONC 32.4 g/dL (32.0-36.0); Mean Corpuscular Hemoglobin 33.1 pg (27.0-31.0); Platelet Count 229 thou/uL (130-400); RBC Distribution Width 15.7 % (11.5-14.5); Red Blood Cell (RBC) Count 1.73 mill/uL (4.70-6.10); White Blood Cell (WBC) Count 10.5 thou/uL (4.8-10.8)
[2017-12-26 06:06] LABS: Lymphocytes 12 % (21-51); MDiff Complete? YES; Monocytes 2 % (0-10); Neutrophil 86 % (42-75); PLT Morphology Comment Appears Adequate
[2017-12-26 06:09] LABS: Anion Gap 6 mmol/L (10-20); BUN (Urea Nitrogen) 23 mg/dL (8.4-25.7); Calc. Creatinine Clearance 95 mL/min (70-130); Calcium 7.5 mg/dL (7.8-10.44); Carbon Dioxide 27 mmol/L (23-31); Chloride 107 mmol/L (98-107); Estimated GFR-MDRD Greater than 90; Glucose 124 mg/dL (83-110); Sodium 136 mmol/L (136-145)
--- NOTE | 2017-12-26 08:11 | RAD ---
SINGLE VIEW CHEST: Date: 12/26/17 COMPARISON: 12/25/17. HISTORY: Ventilated patient with respiratory failure. FINDINGS: Single view of the chest shows an enlarged, but stable cardiomediastinal silhouette. The central veno us catheter is unchanged in position. There is improvement in the bilateral lower lobe opacities. No pleural effusion is seen. IMPRESSION: Improvement in bilateral lower lobe pneumonia. POS: [facility]
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
[2017-12-26 09:42] LABS: ALV-art Gradient 76.435 (0-20); Actual Bicarbonate (HCO3a) 17.8 mEq/L (22-26); Base Excess (BEa) -6.7 mEq/L (0 (+/-) 2.5); CO2 Tension 30.5 mmHg (35.0-45.0); Calcium, Ionized 1.1 mmol/L (1.12-1.30); Hemoglobin (Hb) 4.6 g/dL (14.0-18.0); O2 Tension (PaO2) 113.6 mmHg (80.0-100.0); Puncture Site LRA; pH, Arterial 7.39 (7.35-7.45)
[2017-12-26 10:29] LABS: INR-International Normal Ratio 1.4; PTT 24.7 SEC (22.9-36.1); Prothrombin Time 17.5 SEC (12.0-14.7)
[2017-12-26 10:30] LABS: #Eosinphils 0.1 thou/uL (0.0-0.7); #Lymphocytes 0.4 thou/uL (1.20-3.40); #Monocytes 0.9 thou/uL (0.11-0.59); #Neutrophils 15.5 thou/uL (1.40-6.50); %Eosinophils 0.3 % (0.0-10.0); %Lymphocytes 2.6 % (21.0-51.0); %Monocytes 5.4 % (0.0-10.0); %Neutrophils 91.7 % (42.0-75.0); Hemoglobin 8.1 g/dL (14.0-18.0); Mean Corpuscular HGB CONC 34.1 g/dL (32.0-36.0); Mean Corpuscular Hemoglobin 32.5 pg (27.0-31.0); Mean Corpuscular Volume 95.2 fl (80.0-94.0); Mean Platelet Volume 6.2 fL (7.4-10.4); Platelet Count 202 thou/uL (130-400); RBC Distribution Width 14.7 % (11.5-14.5); Red Blood Cell (RBC) Count 2.48 mill/uL (4.70-6.10); White Blood Cell (WBC) Count 16.9 thou/uL (4.8-10.8)
--- NOTE | 2017-12-26 10:44 | PRG ---
DATE OF SERVICE: 12/26/2017 SUBJECTIVE: Mr. Parker is stable overnight from vital signs standpoint. His blood pressure thi s morning is 108/80s, heart rate is 100, respiratory rate is in the 20s, lowest blood pressure record ed is 94/48. Lungs, heart, and abdomen are essentially unchanged. Hemoglobins had fallen to 5.7. I was told by the nursing staff that it was 4, but reviewing lab it w as 5.7. Chest radiograph shows improved aeration of his bases suggesting a lot of his pulmonary infiltrates a re secondary to mucous plugging. His white count 10.5, hemoglobin 5.7, platelets 229. He was 7.05 yesterday morning, 8.2 the day befo re. A pH 7.39, CO2 30, pO2 113 that was on 3 liters. IMPRESSION: Ongoing gastrointestinal blood loss. Gastroenterology has been notified. He has been m josiah to Critical Care Unit.
[2017-12-26] MEDS: Ferrous Sulfate 325 MG TAB PO SCH ×2 (12:43→15:51)
[2017-12-26] MEDS: Ascorbic Acid 500 mg Chewable Tablet PO SCH ×2 (12:43→20:40)
[2017-12-26] MEDS: Pantoprazole 40 MG VIAL IVP SCH ×2 (12:44→20:40)
[2017-12-26] MEDS: Bacitracin Zinc 1 Packet TOP SCH (12:44)
[2017-12-26] MEDS: Dutasteride 0.5 MG CAP PO SCH (12:44)
[2017-12-26] MEDS: Cyanocobalamin (Vitamin B-12) 1,000 MCG TAB PO SCH (12:44)
[2017-12-26] MEDS: Senokot S 8.6-50 MG TAB PO SCH ×2 (12:44→20:41)
[2017-12-26] MEDS: Folic Acid 1 MG TAB PO SCH (12:44)
[2017-12-26] MEDS: Saccharomyces boulardii 250 MG CAP PO SCH (12:44)
[2017-12-26] MEDS: Tamsulosin HCl 0.4 MG CAP PO SCH (12:45)
[2017-12-26] MEDS ORDERED: Morphine 4 MG/ML Carpuject SLOW IVP PRN (13:06)
[2017-12-26] MEDS ORDERED: Morphine 2 MG/ML SYRINGE SLOW IVP PRN (13:06)
--- NOTE | 2017-12-26 14:34 | NM ---
NUCLEAR MEDICINE ABDOMINAL BLEEDING SCAN: Date: 12/26/17 HISTORY: GI bleed. COMPARISON: Examination from 12/19/17. TECHNIQUE: Examination was performed after administration of 28 mCi technetium-99m tagged RBCs. FINDINGS: The radiopharmaceutical is seen throughout the blood pool and faint uptake in the liver and spleen, n ormal. There is no radiotracer seen within the small or large bowel. The previously noted left colon bleeding is no longer visualized. IMPRESSION: No evidence of GI bleed. POS: [facility]
[2017-12-26] MEDS: Sodium Chloride 0.45% 1,000 ML IV SCH (15:18)
[2017-12-26] MEDS: Scopolamine 1.5 mg/72 hour Patch TD SCH (15:21)
[2017-12-26] MEDS: Acetaminophen 1,000 MG in Premix Bag 1 BAG IVPB SCH (17:06)
--- NOTE | 2017-12-26 17:40 | PRG ---
DATE OF SERVICE: 12/26/2017 SUBJECTIVE: GI was called back today by Dr. Soares due to concern for continued obscure gastrointesti nal bleeding. The patient has required 15 units of RBC transfusion since admission and most of those are due to this issue of it appears ongoing obscure gastrointestinal bleeding. He has continued to have melenic stool. He has had 4 large black bowel movements today. He has remained hemodynamically stable, but blood count continued to drop. Hemoglobin this morning was 5.7, down from 7.0 with furt her transfusion is up again to 8.1. The patient is not really having any abdominal pain. He has bee n on a liquid diet for most of this time. He has been n.p.o. so far today. He had a tagged RBC scan earlier today, which was actually negative. OBJECTIVE: VITAL SIGNS: Temperature 97.5, pulse 96, blood pressure 147/59, 100% oxygen saturation on room air. GENERAL: No acute distress. HEART: Regular rate and rhythm. LUNGS: Clear to auscultation bilaterally. ABDOMEN: Soft and nontender to palpation. EXTREMITIES: No peripheral edema. LABORATORY STUDIES: Hemoglobin 8.1, WBC is 16.9, platelets 202, this is after a couple of units RBC transfusion. Initial hemoglobin this morning was 5.7. INR 1.4. Sodium 136, potassium 4.0, BUN 23, creatinine 0.69, glucose 124. ASSESSMENT AND PLAN: 1. Obscure overt gastrointestinal bleeding. 2. Anemia, recurrent, with significant transfusion requirements this admission. 3. Melena, ongoing. 4. Duodenal ulcer with clean base, visualized on EGD earlier this admission, not thought to be a farhan rce of significant bleeding. I reviewed the case extensively with Dr. Darden and with Dr. Soares. [facility] er and lower endoscopies performed earlier this admission were really not diagnostic for any signific ant bleeding lesion, yet the patient has continued to have overt melena and continuing to decline hem oglobin over the past week, requiring a lot of transfusions. This will qualify as significant obscur e overt gastrointestinal bleeding. I do see the negative tagged RBC scan today, but on the other rothman d, clinically it seems quite apparent that he is having bleeding. Suspect small bowel source. At th is point, we are left with the option of surgical assisted push enteroscopy. Dr. Soares and I will pl an to perform the procedure tomorrow morning in the operating room. We will go ahead and try to admi melindater bowel preparation this evening as well just in case, we need to examine the colon again tomorr ow based on upper endoscopy findings. I had a long discussion with the patient and his family regard ing this and they desire to proceed.
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
[2017-12-26] MEDS ORDERED: GoLYTELY 4,000 ml Bottle PO SCH (18:00)
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
[2017-12-27] MEDS: Piperacillin/Tazobactam 3.375 GM in Sodium Chloride 0.9% 100 ML IVPB SCH ×4 (00:38→17:48)
[2017-12-27 05:46] LABS: PTT 25.9 SEC (22.9-36.1)
[2017-12-27 05:47] LABS: INR-International Normal Ratio 1.3; Prothrombin Time 16.7 SEC (12.0-14.7)
[2017-12-27 05:57] LABS: Anion Gap 10 mmol/L (10-20); BUN (Urea Nitrogen) 29 mg/dL (8.4-25.7); Calc. Creatinine Clearance 98 mL/min (70-130); Calcium 7.7 mg/dL (7.8-10.44); Carbon Dioxide 26 mmol/L (23-31); Chloride 107 mmol/L (98-107); Estimated GFR-MDRD Greater than 90; Glucose 120 mg/dL (83-110); Potassium 3.5 mmol/L (3.5-5.1); Sodium 139 mmol/L (136-145)
[2017-12-27] MEDS: Acetaminophen 1,000 MG in Premix Bag 1 BAG IVPB SCH ×5 (06:00→17:25)
[2017-12-27 06:38] LABS: Band 1 % (5-11); Hemoglobin 6.8 g/dL (14.0-18.0); Lymphocytes 12 % (21-51); MDiff Complete? YES; Macrocytosis SLIGHT = 6-15 cells (100X) (0-5/hpf); Mean Corpuscular HGB CONC 34.6 g/dL (32.0-36.0); Mean Corpuscular Hemoglobin 33.2 pg (27.0-31.0); Mean Corpuscular Volume 95.8 fl (80.0-94.0); Mean Platelet Volume 6.3 fL (7.4-10.4); Monocytes 8 % (0-10); Neutrophil 78 % (42-75); PLT Morphology Comment Appears Adequate; Platelet Count 166 thou/uL (130-400); Polychromasia SLIGHT = 2-3 cells (100X) (0-2/hpf); RBC Distribution Width 15.9 % (11.5-14.5); Reactive Lymphocytes 1 % (0-10); Red Blood Cell (RBC) Count 2.05 mill/uL (4.70-6.10); White Blood Cell (WBC) Count 8.6 thou/uL (4.8-10.8)
--- NOTE | 2017-12-27 08:23 | RAD ---
CHEST 1 VIEW: Date: 12/27/17 HISTORY: Ventilated patient. COMPARISON: Chest 1 view from prior day. FINDINGS: Small effusions. Interstitial markings in the lung bases are increased. Central venous catheter tip a t the cavoatrial junction. No pneumothorax. IMPRESSION: No significant change in radiographic appearance of the chest., POS: [facility]
[2017-12-27] MEDS: Pantoprazole 40 MG VIAL IVP SCH ×2 (08:29→20:31)
[2017-12-27] MEDS: Bacitracin Zinc 1 Packet TOP SCH (08:32)
[2017-12-27] MEDS: Cyanocobalamin (Vitamin B-12) 1,000 MCG TAB PO SCH (08:32)
[2017-12-27] MEDS: Ascorbic Acid 500 mg Chewable Tablet PO SCH ×2 (08:32→20:31)
[2017-12-27] MEDS: Dutasteride 0.5 MG CAP PO SCH (08:33)
[2017-12-27] MEDS: Folic Acid 1 MG TAB PO SCH (08:33)
[2017-12-27] MEDS: Saccharomyces boulardii 250 MG CAP PO SCH (08:34)
[2017-12-27] MEDS: Sodium Chloride 0.45% 1,000 ML IV SCH ×2 (08:34→16:57)
[2017-12-27] MEDS: Tamsulosin HCl 0.4 MG CAP PO SCH (08:34)
[2017-12-27] MEDS: Senokot S 8.6-50 MG TAB PO SCH ×2 (08:34→20:28)
--- NOTE | 2017-12-27 08:54 | PRG ---
DATE OF SERVICE: 12/27/2017 The patient is currently sleeping. He is planned to go to the OR today for an endoscopy and perhaps enteroscopy. PHYSICAL EXAMINATION: VITAL SIGNS: Temperature 97.9, pulse 87, blood pressure 136/49. Total intake for 24 hours 1510, out put 2321. HEENT: Unremarkable. NECK: No JVD. CHEST: Fairly clear. CARDIAC: S1 and S2 regular. ABDOMEN: Soft. EXTREMITIES: No edema. LABORATORY DATA: White blood cell count 8.6, hemoglobin 6.8, hematocrit 19.7, platelet count 126, IN R 1.3, PTT 25.9. Sodium 139, potassium 3.5, chloride 107, CO2 26, BUN 29, creatinine 0.6, glucose 12 0. ASSESSMENT: Gastrointestinal bleeding, source is somewhat unclear. PLAN: 1. Operative procedure today. 2. May end up coming back to the unit intubated. 3. Continue therapy for chronic obstructive pulmonary disease.
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
[2017-12-27] MEDS ORDERED: Phytonadione 5 MG in Sodium Chloride 0.9% 50 ML IVPB SCH (11:45)
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
--- NOTE | 2017-12-27 15:48 | OP ---
DATE OF PROCEDURE: 12/27/2017 GI ENDOSCOPY NOTE SURGEON: Arnel Daly M.D. GLUE SPRAYER SURGEON: None. PROCEDURES: 1. Esophagogastroduodenoscopy, diagnostic. 2. Flexible sigmoidoscopy, diagnostic. INDICATIONS: 1. Ongoing melena. 2. Recurrent anemia. 3. Prior esophagogastroduodenoscopy 1 week ago showing LA grade D esophagitis and large duodenal ulcer. There is concern for possible continued bleeding from the ulcer versus small bowel gastrointestinal bleeding source. MEDICATIONS: See anesthesia record. FINDINGS: After discussion of the risks, benefits and alternatives of the procedure, informed consent was obtained and witnessed. Pre-endoscopic cardiopulmonary examination was satisfactory. Timeout was performed before sedation was achieved. Sedation was achieved with anesthesia assistance in the endoscopy unit. A Pentax adult upper endoscope was placed into the oropharynx and passed through the cricopharyngeus under direct visualization. The esophageal mucosa appeared normal in the proximal and midesophagus. In the distal esophagus just above the GE junction, there is some mild esophagitis and some deformity from healing esophageal ulcer, but no active significant inflammation in the distal esophagus. No evidence of bleeding lesion in that area. The endoscope was advanced into the stomach. Forward and retroflexed views of the entire gastric mucosa were obtained. The gastric mucosa appeared normal throughout. There is a small hiatal hernia. The endoscope was then advanced through the pylorus and into the duodenal bulb. In the posterior duodenal bulb, there is a large ulcer, this is essentially clean based. There is friability around the edges, but no active bleeding at this time. No visible vessel visualized. I did not perform any endotherapy to the area. The endoscope was advanced beyond the duodenal sweep and into the second portion of the duodenum which appeared normal. The upper endoscope was then completely withdrawn and the patient was repositioned. Digital rectal exam demonstrated external hemorrhoids. A Pentax adult colonoscope was inserted into the rectum and passed forward in usual fashion to a distance of about 50 cm which I estimated this in the distal transverse colon. The bowel preparation was very poor with a large amount of liquid and semi-solid stool throughout the colon. Note, the stool had no melena. There was no old blood or active bleeding in the colon. Due to the poor prep difficulty advancing the scope, I decided not to do a completion colonoscopy, but limited this to a flexible sigmoidoscopic examination where examined the colonic mucosa appeared normal throughout. There was evidence of prior polypectomy site in the rectosigmoid colon, which appears to be healing well. There is diverticulosis throughout the left colon. Retroflexion in the rectum demonstrates internal hemorrhoids. The colonoscope was completely withdrawn and the patient allowed to recover. The patient tolerated the procedure well. There were no immediate post-procedure complications. IMPRESSION: 1. Large ulcer in the posterior duodenal bulb, friable, but clean based, similar in appearance from prior examination 1 week ago. No endoscopic therapy applied. 2. Mild distal esophagitis. 3. Small hiatal hernia. 4. Otherwise, normal esophagogastroduodenoscopy with no old blood or active bleeding. 5. Internal and external hemorrhoids. 6. Left-sided diverticulosis. 7. Poor bowel preparation, but no evidence of any old blood or active bleeding throughout the colon. RECOMMENDATIONS: 1. Continue the IV PPI twice daily. 2. Advance diet as tolerated. 3. Continue to trend hemoglobin and hematocrit. 4. Discussed the case with Dr. Soares in the endoscopy room at the time of the procedure. We feel that the posterior duodenal bulb ulcer is a likely explanation for the patient's continued decline in hemoglobin. This is minimally healed over the past week, needs more time. At this point, we were satisfied with this explanation and we have decided not to go the more aggressive step of laparotomy and surgical assisted push enteroscopy at this time. Continue to monitor closely. GI will continue to follow along. VILMA
[2017-12-27] MEDS ORDERED: Propofol 200 MG/20 ML VIAL ONE (16:33)
[2017-12-27] MEDS ORDERED: Lidocaine 1% PF 5 ML VIAL ONE (16:33)
[2017-12-27] MEDS: hydrALAZINE 20 MG/ML VIAL SLOW IVP PRN ×2 (18:06→22:05)
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
[2017-12-28] MEDS: Piperacillin/Tazobactam 3.375 GM in Sodium Chloride 0.9% 100 ML IVPB SCH ×5 (00:49→23:56)
[2017-12-28 05:29] LABS: Lymphocytes 3 % (21-51); Monocytes 6 % (0-10)
[2017-12-28 05:42] LABS: Hemoglobin 8.6 g/dL (14.0-18.0); Mean Corpuscular HGB CONC 34.8 g/dL (32.0-36.0); Mean Corpuscular Hemoglobin 33.4 pg (27.0-31.0); Mean Corpuscular Volume 95.9 fl (80.0-94.0); Mean Platelet Volume 6.2 fL (7.4-10.4); Platelet Count 168 thou/uL (130-400); RBC Distribution Width 16.2 % (11.5-14.5); Red Blood Cell (RBC) Count 2.57 mill/uL (4.70-6.10); White Blood Cell (WBC) Count 7.9 thou/uL (4.8-10.8)
[2017-12-28 05:43] LABS: MDiff Complete? YES; Neutrophil 91 % (42-75)
[2017-12-28 05:50] LABS: Anion Gap 10 mmol/L (10-20); BUN (Urea Nitrogen) 18 mg/dL (8.4-25.7); Calc. Creatinine Clearance 82 mL/min (70-130); Calcium 7.8 mg/dL (7.8-10.44); Carbon Dioxide 24 mmol/L (23-31); Chloride 107 mmol/L (98-107); Estimated GFR-MDRD Greater than 90; Glucose 109 mg/dL (83-110); Potassium 3.3 mmol/L (3.5-5.1); Sodium 138 mmol/L (136-145)
--- NOTE | 2017-12-28 08:36 | RAD ---
CHEST 1 VIEW: Date: 12/28/17 HISTORY: Ventilated patient. COMPARISON: Chest 1 view from prior day. FINDINGS: Central venous catheter tip at inferior SVC. There are layering effusions. Interstitial opacities and alveolar opacities both lower lobes. No pneumothorax. IMPRESSION: No significant change in radiographic appearance of the chest. POS: [facility]
[2017-12-28] MEDS ORDERED: CCU Electrolyte Replacement 1 EACH FS ONE (09:13)
[2017-12-28] MEDS ORDERED: CCU ELECTROLYTE REPLACEMENT PROTOCOL FS PRN (09:14)
[2017-12-28] MEDS: hydrALAZINE 20 MG/ML VIAL SLOW IVP PRN ×2 (09:14→14:38)
[2017-12-28] MEDS ORDERED: Potassium Chloride 40 MEQ in Sodium Chloride 0.9% 250 ML 250 ML IVPB PRN (09:14)
[2017-12-28] MEDS ORDERED: Magnesium Oxide 400 MG TAB PO PRN ×2 (09:14)
[2017-12-28] MEDS ORDERED: Potassium Phosphate 12 MMOL in Sodium Chloride 0.9% 250 ML 250 ML IV PRN (09:14)
[2017-12-28] MEDS ORDERED: Potassium Phosphate 9 MMOL in Sodium Chloride 0.9% 100 ML IVPB PRN (09:14)
[2017-12-28] MEDS ORDERED: Potassium Phosphate 15 MMOL in Sodium Chloride 0.9% 250 ML 250 ML IV PRN (09:14)
[2017-12-28] MEDS ORDERED: Potassium Chloride 20 MEQ TAB PO PRN (09:14)
[2017-12-28] MEDS ORDERED: Potassium Chloride 40 MEQ in Premix Bag 1 BAG IVPB PRN (09:14)
[2017-12-28] MEDS ORDERED: Magnesium 2 GM/NS 0.9% 100 ML 2 GM in Premix Bag 1 BAG IVPB PRN (09:14)
[2017-12-28] MEDS: Folic Acid 1 MG TAB PO SCH (09:23)
[2017-12-28] MEDS: Ascorbic Acid 500 mg Chewable Tablet PO SCH ×2 (09:23→20:59)
[2017-12-28] MEDS: Tamsulosin HCl 0.4 MG CAP PO SCH (09:23)
[2017-12-28] MEDS: Cyanocobalamin (Vitamin B-12) 1,000 MCG TAB PO SCH (09:23)
[2017-12-28] MEDS: Dutasteride 0.5 MG CAP PO SCH (09:23)
[2017-12-28] MEDS: Pantoprazole 40 MG VIAL IVP SCH ×2 (09:23→21:00)
[2017-12-28] MEDS: Saccharomyces boulardii 250 MG CAP PO SCH (09:23)
[2017-12-28] MEDS: Bacitracin Zinc 1 Packet TOP SCH (09:23)
[2017-12-28] MEDS: Senokot S 8.6-50 MG TAB PO SCH ×2 (09:24→21:00)
[2017-12-28] MEDS: Sodium Chloride 0.45% 1,000 ML IV SCH ×2 (09:24→20:59)
--- NOTE | 2017-12-28 10:36 | PRG ---
DATE OF SERVICE: 12/28/2017 GI INPATIENT DAILY PROGRESS NOTE SUBJECTIVE: Mr. Parker feels about the same today. He is not having any abdominal pain. He is tolerating his liquid diet well. Bowel movements continued to be diarrhea consistent with C. diffic ile. There is no reported melena or any hematochezia. Hemoglobin came up nicely after transfusion y esterday, it is currently 8.6. PHYSICAL EXAMINATION: VITAL SIGNS: Pulse 92, blood pressure 167/62, 93% oxygen saturation on 1 liter nasal cannula. GENERAL: Ill-appearing, lying in bed comfortably in no distress. HEART: Regular rate and rhythm. LUNGS: Clear to auscultation bilaterally. ABDOMEN: Soft and nontender to palpation. EXTREMITIES: No peripheral edema. LABORATORY STUDIES: Hemoglobin 8.6, WBC 7.9, and platelets 168. INR 1.3. Sodium 138, potassium 3.3 , BUN down to 18, and creatinine 0.63. ASSESSMENT AND PLAN: 1. Duodenal ulcer. 2. Esophagitis. 3. Melena, appears to be resolved today. 4. Anemia, recurrent. No evidence of active gastrointestinal bleeding on endoscopy yesterday or cli nically since that time. Continue to trend hemoglobin and hematocrit. I do believe that duodenal ul cer is an adequate explanation for his continued anemia, so we did not proceed with surgical assisted enteroscopy yesterday. Continue to follow.
--- NOTE | 2017-12-28 10:37 | PRG ---
DATE OF SERVICE: 12/28/2017 SUBJECTIVE: He is awake and alert, has no acute complaints. OBJECTIVE: VITAL SIGNS: Temperature 97.9, pulse 98, blood pressure 110/85. A 24-hour intake 2809 and output 19 20. HEENT: Unremarkable. NECK: No JVD. CHEST: Coarse rhonchi. CARDIAC: S1 and S2, regular. ABDOMEN: Soft. EXTREMITIES: No edema. LABORATORY DATA: Sodium 138, potassium 3.3, chloride 107, CO2 of 24, BUN 18, creatinine 0.6, glucose 109. White blood cell count 7.9, hemoglobin 8.6, hematocrit 24.6, platelet count 168. ASSESSMENT: 1. Gastrointestinal bleeding secondary to large ulcer in the posterior duodenal bulb. 2. Anemia, blood loss. PLAN: 1. Continue to monitor blood counts. 2. Replace his potassium. 3. He remains in the CCU for the time being.
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
[2017-12-28] MEDS ORDERED: cloNIDine 0.1 MG TAB PO PRN (13:12)
[2017-12-28] MEDS: traMADol HCl 50 MG TAB PO PRN (15:54)
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
[2017-12-29] MEDS: traMADol HCl 50 MG TAB PO PRN (01:15)
[2017-12-29 06:01] LABS: Anion Gap 7 mmol/L (10-20); BUN (Urea Nitrogen) 15 mg/dL (8.4-25.7); Calc. Creatinine Clearance 78 mL/min (70-130); Calcium 7.9 mg/dL (7.8-10.44); Carbon Dioxide 26 mmol/L (23-31); Chloride 105 mmol/L (98-107); Estimated GFR-MDRD Greater than 90; Glucose 123 mg/dL (83-110); Potassium 4.1 mmol/L (3.5-5.1); Sodium 134 mmol/L (136-145)
[2017-12-29 06:11] LABS: Band 3 % (5-11); Hemoglobin 8.6 g/dL (14.0-18.0); Lymphocytes 1 % (21-51); MDiff Complete? YES; Macrocytosis SLIGHT = 6-15 cells (100X) (0-5/hpf); Mean Corpuscular Hemoglobin 33.2 pg (27.0-31.0); Mean Corpuscular Volume 97.7 fl (80.0-94.0); Mean Platelet Volume 6.1 fL (7.4-10.4); Monocytes 2 % (0-10); Neutrophil 94 % (42-75); PLT Morphology Comment Appears Adequate; Platelet Count 193 thou/uL (130-400); RBC Distribution Width 16.4 % (11.5-14.5); White Blood Cell (WBC) Count 10.4 thou/uL (4.8-10.8)
[2017-12-29] MEDS: Piperacillin/Tazobactam 3.375 GM in Sodium Chloride 0.9% 100 ML IVPB SCH ×2 (06:41→12:43)
[2017-12-29] MEDS: Cyanocobalamin (Vitamin B-12) 1,000 MCG TAB PO SCH (07:52)
[2017-12-29] MEDS: Dutasteride 0.5 MG CAP PO SCH (07:52)
[2017-12-29] MEDS: Folic Acid 1 MG TAB PO SCH (07:53)
[2017-12-29] MEDS: Pantoprazole 40 MG VIAL IVP SCH ×2 (07:53→21:53)
[2017-12-29] MEDS: Saccharomyces boulardii 250 MG CAP PO SCH (07:53)
[2017-12-29] MEDS: hydrALAZINE 20 MG/ML VIAL SLOW IVP PRN (07:53)
[2017-12-29] MEDS: Senokot S 8.6-50 MG TAB PO SCH ×2 (07:53→21:53)
[2017-12-29] MEDS: Tamsulosin HCl 0.4 MG CAP PO SCH (07:53)
[2017-12-29] MEDS ORDERED: Furosemide 20 MG/2 ML VIAL SLOW IVP SCH (08:00)
[2017-12-29] MEDS ORDERED: Levothyroxine Sodium 50 MCG TAB PO SCH (08:00)
[2017-12-29] MEDS: Ascorbic Acid 500 mg Chewable Tablet PO SCH (08:03)
[2017-12-29] MEDS ORDERED: Non-Formulary Item 1 EACH (Folic Acid [Folic Acid] 0.8 MG) PO SCH (09:00)
[2017-12-29] MEDS: Amlodipine 10 MG TAB PO SCH (09:35)
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
--- NOTE | 2017-12-29 16:01 | PRG ---
DATE OF SERVICE: 12/29/2017 Antwon Parker today was felt to be stable by the surgeons. He was transferred to the surgical hazel. He has had an adequate course of IV antibiotics and IV steroids. He will be switched to p.o. prednisone and p.o. antibiotics. We will try to taper his dose of prednisone as quickly as possible as long as he tolerates this. [facility]
[2017-12-29] MEDS: Scopolamine 1.5 mg/72 hour Patch TD SCH (16:14)
[2017-12-29] MEDS: Sodium Chloride 0.45% 1,000 ML IV SCH (16:15)
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
--- NOTE | 2017-12-29 21:24 | PRG ---
DATE OF SERVICE: 12/29/2017 SUBJECTIVE: Mr. Parker is sleeping at this time but easily arousable. Denies any chest pain, s hortness of breath, or syncope. Has adequate pain control and he is tolerating a regular diet and emanuel ving normal bowel and urinary function. No hematochezia or melena. OBJECTIVE: VITAL SIGNS: Stable and reviewed. Physical examination is unremarkable. ASSESSMENT AND PLAN: Continue with daily care plan as stated in the progress note. Continue to [facility]. Discharge disposition is pending.
[2017-12-29] MEDS: Amoxicillin/Potassium Clav 875 MG TAB PO SCH (21:53)
[2017-12-30] MEDS: Sodium Chloride 0.45% 1,000 ML IV SCH ×2 (02:32→18:44)
[2017-12-30 04:58] LABS: Band 6 % (5-11); Hemoglobin 8.5 g/dL (14.0-18.0); Lymphocytes 7 % (21-51); MDiff Complete? YES; Mean Corpuscular HGB CONC 33.1 g/dL (32.0-36.0); Mean Corpuscular Hemoglobin 32.7 pg (27.0-31.0); Mean Corpuscular Volume 98.7 fl (80.0-94.0); Mean Platelet Volume 5.9 fL (7.4-10.4); Monocytes 3 % (0-10); Neutrophil 84 % (42-75); PLT Morphology Comment Appears Adequate; Platelet Count 204 thou/uL (130-400); RBC Distribution Width 16.7 % (11.5-14.5); Red Blood Cell (RBC) Count 2.61 mill/uL (4.70-6.10); White Blood Cell (WBC) Count 7.4 thou/uL (4.8-10.8)
[2017-12-30 05:01] LABS: Anion Gap 7 mmol/L (10-20); BUN (Urea Nitrogen) 12 mg/dL (8.4-25.7); Calc. Creatinine Clearance 111 mL/min (70-130); Calcium 7.9 mg/dL (7.8-10.44); Carbon Dioxide 28 mmol/L (23-31); Chloride 104 mmol/L (98-107); Estimated GFR-MDRD Greater than 90; Glucose 91 mg/dL (83-110); Sodium 136 mmol/L (136-145)
[2017-12-30] MEDS: Levothyroxine Sodium 50 MCG TAB PO SCH ×2 (06:48→07:03)
--- NOTE | 2017-12-30 08:15 | PRG ---
DATE OF SERVICE: 12/30/2017 The patient transferred to surgical floor. Vital signs are stable in isolation due to Clostridium difficile. PHYSICAL EXAMINATION: ABDOMEN: Soft. : Mild preputial edema, stable. Lauren catheter draining clear yellow urine. I did remove the Lauren catheter at bedside. The patient is physically combative today, zbigniew provider. Hemoglobin stable at 8.5. IMPRESSION AND PLAN: Mr. Parker is an 82-year-old male with history of benign prostatic hypertrophy with urinary retention likely exacerbated by fecal impaction. This has resolved. The patient has C. diff, anemia workup with recurrent gastrointestinal bleed, resolved. Lauren catheter removed, for a voiding trial. Bladder scan every 6 hours if greater than 300 mL PVR CIC p.r.n. Continue Flomax. MTDD
[2017-12-30] MEDS: Ascorbic Acid 500 mg Chewable Tablet PO SCH (09:25)
[2017-12-30] MEDS: Dutasteride 0.5 MG CAP PO SCH (09:28)
[2017-12-30] MEDS: Pantoprazole 40 MG VIAL IVP SCH ×2 (09:28→20:29)
[2017-12-30] MEDS: Tamsulosin HCl 0.4 MG CAP PO SCH (09:28)
[2017-12-30] MEDS: predniSONE 20 MG TAB PO SCH (09:29)
[2017-12-30] MEDS: traMADol HCl 50 MG TAB PO PRN ×2 (09:29→20:26)
[2017-12-30] MEDS: Cyanocobalamin (Vitamin B-12) 1,000 MCG TAB PO SCH (09:29)
[2017-12-30] MEDS: Amoxicillin/Potassium Clav 875 MG TAB PO SCH ×2 (09:30→20:26)
[2017-12-30] MEDS: Saccharomyces boulardii 250 MG CAP PO SCH (09:30)
[2017-12-30] MEDS: Amlodipine 10 MG TAB PO SCH (09:30)
[2017-12-30] MEDS: Folic Acid 1 MG TAB PO SCH (09:30)
[2017-12-30] MEDS: Senokot S 8.6-50 MG TAB PO SCH ×2 (09:30→20:32)
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
[2017-12-30 13:11] LABS: Magnesium 1.7 mg/dL (1.6-2.6); Phosphorus 2.3 mg/dL (2.3-4.7)
[2017-12-30] MEDS ORDERED: Magnesium Sulfate 2 GM in Sodium Chloride 0.9% 250 ML 250 ML IVPB SCH (13:30)
[2017-12-30] MEDS ORDERED: Potassium Chloride 40 MEQ in Premix Bag 1 BAG IVPB SCH (13:30)
[2017-12-30] MEDS ORDERED: Magnesium Sulfate 3 GM in Sodium Chloride 0.9% 100 ML IVPB SCH (13:45)
[2017-12-30] MEDS ORDERED: Potassium Phosphate 30 MMOL in Sodium Chloride 0.9% 500 ML IVPB SCH (13:45)
[2017-12-30] MEDS ORDERED: Magnesium Sulfate 3 GM, Potassium Phosphate 30 MMOL in Sodium Chloride 0.9% 250 ML 250 ML IVPB SCH (14:00)
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
[2017-12-31] MEDS: Levothyroxine Sodium 50 MCG TAB PO SCH (05:07)
[2017-12-31 06:29] LABS: Anion Gap 8 mmol/L (10-20); BUN (Urea Nitrogen) 10 mg/dL (8.4-25.7); Calc. Creatinine Clearance 114 mL/min (70-130); Calcium 7.8 mg/dL (7.8-10.44); Carbon Dioxide 31 mmol/L (23-31); Chloride 102 mmol/L (98-107); Estimated GFR-MDRD Greater than 90; Glucose 104 mg/dL (83-110); Magnesium 2.3 mg/dL (1.6-2.6); Phosphorus 2.6 mg/dL (2.3-4.7); Potassium 3.8 mmol/L (3.5-5.1); Sodium 137 mmol/L (136-145)
[2017-12-31 07:12] LABS: Hemoglobin 9.6 g/dL (14.0-18.0); Mean Corpuscular HGB CONC 33.4 g/dL (32.0-36.0); Mean Corpuscular Hemoglobin 33.2 pg (27.0-31.0); Mean Corpuscular Volume 99.2 fl (80.0-94.0); Mean Platelet Volume 5.8 fL (7.4-10.4); Platelet Count 211 thou/uL (130-400); RBC Distribution Width 16.4 % (11.5-14.5); White Blood Cell (WBC) Count 6.8 thou/uL (4.8-10.8)
[2017-12-31 07:56] LABS: Band 2 % (5-11); Lymphocytes 5 % (21-51); MDiff Complete? YES; Monocytes 3 % (0-10); Neutrophil 85 % (42-75); RBC Morphology Normal; Reactive Lymphocytes 5 % (0-10)
[2017-12-31] MEDS: predniSONE 20 MG TAB PO SCH (08:09)
[2017-12-31] MEDS: Amlodipine 10 MG TAB PO SCH (08:11)
[2017-12-31] MEDS: Amoxicillin/Potassium Clav 875 MG TAB PO SCH ×2 (08:13→20:37)
[2017-12-31] MEDS: Ascorbic Acid 500 mg Chewable Tablet PO SCH (08:14)
[2017-12-31] MEDS: Cyanocobalamin (Vitamin B-12) 1,000 MCG TAB PO SCH (08:15)
[2017-12-31] MEDS: Pantoprazole 40 MG VIAL IVP SCH ×2 (08:17→20:40)
[2017-12-31] MEDS: Folic Acid 1 MG TAB PO SCH (08:17)
[2017-12-31] MEDS: Tamsulosin HCl 0.4 MG CAP PO SCH (08:17)
[2017-12-31] MEDS: Saccharomyces boulardii 250 MG CAP PO SCH (08:17)
[2017-12-31] MEDS: Dutasteride 0.5 MG CAP PO SCH (08:17)
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
[2017-12-31] MEDS: Senokot S 8.6-50 MG TAB PO SCH ×2 (13:36→21:41)
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
[2017-12-31] MEDS ORDERED: Megestrol Acetate 40 MG TAB PO SCH (15:45)
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
[2017-12-31] MEDS: traMADol HCl 50 MG TAB PO PRN (20:37)
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
[2018-01-01] MEDS: Levothyroxine Sodium 50 MCG TAB PO SCH (05:43)
[2018-01-01 05:56] LABS: Hemoglobin 9.2 g/dL (14.0-18.0); Lymphocytes 5 % (21-51); MDiff Complete? YES; Mean Corpuscular HGB CONC 33.5 g/dL (32.0-36.0); Mean Corpuscular Hemoglobin 33.4 pg (27.0-31.0); Mean Corpuscular Volume 99.7 fl (80.0-94.0); Mean Platelet Volume 6.3 fL (7.4-10.4); Monocytes 6 % (0-10); Neutrophil 89 % (42-75); Platelet Count 214 thou/uL (130-400); RBC Distribution Width 16.4 % (11.5-14.5); Red Blood Cell (RBC) Count 2.75 mill/uL (4.70-6.10); White Blood Cell (WBC) Count 7.5 thou/uL (4.8-10.8)
[2018-01-01 06:13] LABS: Anion Gap 10 mmol/L (10-20); BUN (Urea Nitrogen) 12 mg/dL (8.4-25.7); Calc. Creatinine Clearance 133 mL/min (70-130); Calcium 7.8 mg/dL (7.8-10.44); Carbon Dioxide 27 mmol/L (23-31); Chloride 104 mmol/L (98-107); Estimated GFR-MDRD Greater than 90; Glucose 111 mg/dL (83-110); Potassium 3.7 mmol/L (3.5-5.1); Sodium 137 mmol/L (136-145)
[2018-01-01] MEDS: predniSONE 20 MG TAB PO SCH (08:20)
[2018-01-01] MEDS: Amlodipine 10 MG TAB PO SCH (08:21)
[2018-01-01] MEDS: Amoxicillin/Potassium Clav 875 MG TAB PO SCH ×2 (08:22→22:31)
[2018-01-01] MEDS: Ascorbic Acid 500 mg Chewable Tablet PO SCH (08:22)
[2018-01-01] MEDS: Cyanocobalamin (Vitamin B-12) 1,000 MCG TAB PO SCH (08:24)
[2018-01-01] MEDS: Dutasteride 0.5 MG CAP PO SCH (08:24)
[2018-01-01] MEDS: Pantoprazole 40 MG VIAL IVP SCH ×2 (08:25→22:32)
[2018-01-01] MEDS: Folic Acid 1 MG TAB PO SCH (08:25)
[2018-01-01] MEDS: Saccharomyces boulardii 250 MG CAP PO SCH (08:26)
[2018-01-01] MEDS: Tamsulosin HCl 0.4 MG CAP PO SCH (08:26)
[2018-01-01] MEDS: Megestrol Acetate 40 MG TAB PO SCH (09:57)
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
[2018-01-01] MEDS: Senokot S 8.6-50 MG TAB PO SCH ×2 (10:36→22:32)
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
[2018-01-01] MEDS ORDERED: Potassium Chloride 20 MEQ TAB PO SCH (14:00)
[2018-01-01 14:14] VITALS: BMI 27.6
[2018-01-01] MEDS: Scopolamine 1.5 mg/72 hour Patch TD SCH (16:31)
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
[2018-01-02] MEDS: Levothyroxine Sodium 50 MCG TAB PO SCH (05:06)
[2018-01-02] MEDS: traMADol HCl 50 MG TAB PO PRN ×2 (05:06→14:39)
[2018-01-02 06:21] LABS: Anion Gap 9 mmol/L (10-20); BUN (Urea Nitrogen) 12 mg/dL (8.4-25.7); Calc. Creatinine Clearance 108 mL/min (70-130); Calcium 8.4 mg/dL (7.8-10.44); Carbon Dioxide 29 mmol/L (23-31); Chloride 103 mmol/L (98-107); Estimated GFR-MDRD Greater than 90; Glucose 90 mg/dL (83-110); Magnesium 2.1 mg/dL (1.6-2.6); Phosphorus 1.8 mg/dL (2.3-4.7); Potassium 3.8 mmol/L (3.5-5.1); Sodium 137 mmol/L (136-145)
[2018-01-02 07:30] LABS: Hemoglobin 10.3 g/dL (14.0-18.0); Mean Corpuscular HGB CONC 32.6 g/dL (32.0-36.0); Mean Corpuscular Hemoglobin 32.8 pg (27.0-31.0); Platelet Count 241 thou/uL (130-400); RBC Distribution Width 16.2 % (11.5-14.5); Red Blood Cell (RBC) Count 3.13 mill/uL (4.70-6.10)
[2018-01-02] MEDS ORDERED: Potassium Phosphate 30 MMOL in Sodium Chloride 0.9% 250 ML 250 ML IVPB SCH (07:30)
[2018-01-02] MEDS ORDERED: Potassium Phosphate 30 MMOL in Sodium Chloride 0.9% 500 ML IVPB SCH (07:30)
[2018-01-02] MEDS ORDERED: Potassium Chloride 20 MEQ TAB PO ONE (08:00)
[2018-01-02 08:56] LABS: Band 2 % (5-11); Eosinophils 1 % (0-10); Lymphocytes 16 % (21-51); MDiff Complete? YES; Monocytes 4 % (0-10); Neutrophil 76 % (42-75); RBC Morphology Normal; Reactive Lymphocytes 1 % (0-10)
[2018-01-02] MEDS: Cyanocobalamin (Vitamin B-12) 1,000 MCG TAB PO SCH (09:16)
[2018-01-02] MEDS: Pantoprazole 40 MG VIAL IVP SCH ×2 (09:16→21:53)
[2018-01-02] MEDS: predniSONE 20 MG TAB PO SCH (09:16)
[2018-01-02] MEDS: Folic Acid 1 MG TAB PO SCH (09:17)
[2018-01-02] MEDS: Saccharomyces boulardii 250 MG CAP PO SCH (09:17)
[2018-01-02] MEDS: Amlodipine 10 MG TAB PO SCH (09:17)
[2018-01-02] MEDS: Senokot S 8.6-50 MG TAB PO SCH ×2 (09:17→21:52)
[2018-01-02] MEDS: Megestrol Acetate 40 MG TAB PO SCH (09:17)
[2018-01-02] MEDS: Tamsulosin HCl 0.4 MG CAP PO SCH (09:17)
[2018-01-02] MEDS: Dutasteride 0.5 MG CAP PO SCH (09:17)
[2018-01-02] MEDS: Amoxicillin/Potassium Clav 875 MG TAB PO SCH ×2 (09:17→21:52)
[2018-01-02] MEDS: Ascorbic Acid 500 mg Chewable Tablet PO SCH (09:18)
--- NOTE | 2018-01-02 12:44 | PRG ---
DATE OF SERVICE: 01/02/2018 PHYSICAL EXAMINATION: VITAL SIGNS: He is afebrile, heart rate is 80, respirations 16, oximetry 93 on room air. GENERAL: He is back towards his baseline does still intermittently have mucous plug and need cough. His exam is otherwise unchanged. White count 8, hemoglobin 10.3, platelets 241,000. Electrolytes are normal. IMPRESSION: 1. Chronic obstructive pulmonary disease, clinically stable. 2. Status post respiratory failure associated with chronic obstructive pulmonary disease and retaine d secretions. 3. Status post gastrointestinal bleed, clinically stable. Apparently, the Medicare supplement has declined referral to a rehab environment. He is totally roshan mbulatory and I cannot imagine why he would not qualify for some type of rehab. This is very frustra ting.
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
[2018-01-03] MEDS: Levothyroxine Sodium 50 MCG TAB PO SCH (05:33)
[2018-01-03 05:44] LABS: Band 1 % (5-11); Hemoglobin 10.3 g/dL (14.0-18.0); Lymphocytes 5 % (21-51); MDiff Complete? YES; Mean Corpuscular HGB CONC 32.1 g/dL (32.0-36.0); Mean Corpuscular Hemoglobin 32.4 pg (27.0-31.0); Mean Platelet Volume 5.8 fL (7.4-10.4); Monocytes 5 % (0-10); Neutrophil 89 % (42-75); Platelet Count 237 thou/uL (130-400); RBC Distribution Width 16.1 % (11.5-14.5); Red Blood Cell (RBC) Count 3.17 mill/uL (4.70-6.10); White Blood Cell (WBC) Count 7.3 thou/uL (4.8-10.8)
[2018-01-03 07:03] LABS: Anion Gap 12 mmol/L (10-20); BUN (Urea Nitrogen) 14 mg/dL (8.4-25.7); Calc. Creatinine Clearance 109 mL/min (70-130); Calcium 8.2 mg/dL (7.8-10.44); Carbon Dioxide 25 mmol/L (23-31); Chloride 102 mmol/L (98-107); Estimated GFR-MDRD Greater than 90; Glucose 122 mg/dL (83-110); Magnesium 2.3 mg/dL (1.6-2.6); Phosphorus 2.9 mg/dL (2.3-4.7); Potassium 4.8 mmol/L (3.5-5.1); Sodium 134 mmol/L (136-145)
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
[2018-01-03] MEDS: Dutasteride 0.5 MG CAP PO SCH ×2 (09:31→09:51)
[2018-01-03] MEDS: Pantoprazole 40 MG VIAL IVP SCH ×2 (09:32→21:31)
[2018-01-03] MEDS: Amlodipine 10 MG TAB PO SCH (09:32)
[2018-01-03] MEDS: Senokot S 8.6-50 MG TAB PO SCH ×2 (09:32→21:31)
[2018-01-03] MEDS: Tamsulosin HCl 0.4 MG CAP PO SCH (09:32)
[2018-01-03] MEDS: Saccharomyces boulardii 250 MG CAP PO SCH (09:32)
[2018-01-03] MEDS: Ascorbic Acid 500 mg Chewable Tablet PO SCH ×2 (09:32→09:50)
[2018-01-03] MEDS: Megestrol Acetate 40 MG TAB PO SCH ×2 (09:32→09:52)
[2018-01-03] MEDS: predniSONE 20 MG TAB PO SCH (09:32)
[2018-01-03] MEDS: Folic Acid 1 MG TAB PO SCH (09:33)
[2018-01-03] MEDS: Cyanocobalamin (Vitamin B-12) 1,000 MCG TAB PO SCH ×2 (09:33→09:51)
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
[2018-01-04] MEDS: Levothyroxine Sodium 50 MCG TAB PO SCH (06:51)
[2018-01-04] MEDS: Megestrol Acetate 40 MG TAB PO SCH (09:33)
[2018-01-04] MEDS: Pantoprazole 40 MG VIAL IVP SCH ×2 (09:33→22:59)
[2018-01-04] MEDS: Tamsulosin HCl 0.4 MG CAP PO SCH (09:34)
[2018-01-04] MEDS: Senokot S 8.6-50 MG TAB PO SCH ×2 (09:35→22:59)
[2018-01-04] MEDS: Cyanocobalamin (Vitamin B-12) 1,000 MCG TAB PO SCH (09:35)
[2018-01-04] MEDS: Amlodipine 10 MG TAB PO SCH (09:35)
[2018-01-04] MEDS: predniSONE 20 MG TAB PO SCH (09:35)
[2018-01-04] MEDS: Ascorbic Acid 500 mg Chewable Tablet PO SCH (09:35)
[2018-01-04] MEDS: Folic Acid 1 MG TAB PO SCH (09:36)
[2018-01-04] MEDS: Dutasteride 0.5 MG CAP PO SCH (09:36)
[2018-01-04] MEDS: Saccharomyces boulardii 250 MG CAP PO SCH (09:36)
[2018-01-04] MEDS: Scopolamine 1.5 mg/72 hour Patch TD SCH (16:05)
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
[2018-01-05] MEDS: Levothyroxine Sodium 50 MCG TAB PO SCH (06:42)
[2018-01-05] MEDS ORDERED: Enoxaparin Sodium 40 MG/0.4 ML SYRINGE SC SCH (09:00)
[2018-01-05] MEDS: Folic Acid 1 MG TAB PO SCH (09:05)
[2018-01-05] MEDS: Saccharomyces boulardii 250 MG CAP PO SCH (09:05)
[2018-01-05] MEDS: Ascorbic Acid 500 mg Chewable Tablet PO SCH ×3 (09:05→09:15)
[2018-01-05] MEDS: Pantoprazole 40 MG VIAL IVP SCH (09:05)
[2018-01-05] MEDS: Tamsulosin HCl 0.4 MG CAP PO SCH (09:05)
[2018-01-05] MEDS: Cyanocobalamin (Vitamin B-12) 1,000 MCG TAB PO SCH (09:06)
[2018-01-05] MEDS: Dutasteride 0.5 MG CAP PO SCH (09:06)
[2018-01-05] MEDS: Megestrol Acetate 40 MG TAB PO SCH (09:06)
[2018-01-05] MEDS: Amlodipine 10 MG TAB PO SCH (09:06)
[2018-01-05] MEDS: Senokot S 8.6-50 MG TAB PO SCH (09:06)
[2018-01-05] MEDS: predniSONE 20 MG TAB PO SCH (09:06)
[2018-01-05 13:28] VITALS: BP 144/74; TEMP 98
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
--- NOTE | 2018-01-08 18:33 | EKG ---
Test Reason : STAT Blood Pressure : / mmHG Vent. Rate : 079 BPM Atrial Rate : 079 BPM P-R Int : 150 ms QRS Dur : 088 ms QT Int : 440 ms P-R-T Axes : 061 066 089 degrees QTc Int : 504 ms Normal sinus rhythm Prolonged QT Abnormal ECG When compared with ECG of 14-SEP-2013 11:49, T wave inversion now evident in Anterior leads QT has lengthened Confirmed by DR. Melita VERGARA ([id number]) on 01/08/2018 6:32:59 PM Referred By: DEYANIRA Confirmed By:DR. Melita VERGARA
== END 2018-01-05 14:23 | DRG 956 ==
LOC: ERS 19:14 → CCU 19:31 → IMCU/EMU 12-05 19:57 → SURG A 12-08 16:18 → CCU 12-20 12:54 → IMCU/EMU 12-24 15:40 → CCU 12-26 09:00 → SURG B 12-29 11:36 → SURG A 12-29 11:42
PROVIDERS: ADMIT Surgery; ATTEND Surgery
PROC: 0QS805Z Reposition Right Femoral Shaft with External Fixation Device, Open Approach (ICD-10-PCS; 2017-11-28)
PROC: 0QSH05Z Reposition Left Tibia with External Fixation Device, Open Approach (ICD-10-PCS; 2017-11-28)
PROC: 0W9900Z Drainage of Right Pleural Cavity with Drainage Device, Open Approach (ICD-10-PCS; 2017-11-28)
PROC: 06HM33Z Insertion of Infusion Device into Right Femoral Vein, Percutaneous Approach (ICD-10-PCS; 2017-11-28)
PROC: 30233N1 Transfusion of Nonautologous Red Blood Cells into Peripheral Vein, Percutaneous Approach (ICD-10-PCS; 2017-11-28)
PROC: 5A1955Z Respiratory Ventilation, Greater than 96 Consecutive Hours (ICD-10-PCS; 2017-11-28)
PROC: 0BH17EZ Insertion of Endotracheal Airway into Trachea, Via Natural or Artificial Opening (ICD-10-PCS; 2017-11-28)
PROC: 0LQ70ZZ Repair Right Hand Tendon, Open Approach (ICD-10-PCS; principal; 2017-11-29)
PROC: 0PSH04Z Reposition Right Radius with Internal Fixation Device, Open Approach (ICD-10-PCS; 2017-11-29)
PROC: 0RBU0ZZ Excision of Right Metacarpophalangeal Joint, Open Approach (ICD-10-PCS; 2017-11-29)
PROC: 03HY32Z Insertion of Monitoring Device into Upper Artery, Percutaneous Approach (ICD-10-PCS; 2017-11-29)
PROC: 05H533Z Insertion of Infusion Device into Right Subclavian Vein, Percutaneous Approach (ICD-10-PCS; 2017-11-29)
PROC: 0QS836Z Reposition Right Femoral Shaft with Intramedullary Internal Fixation Device, Percutaneous Approach (ICD-10-PCS; 2017-11-30)
PROC: 0QP8X5Z Removal of External Fixation Device from Right Femoral Shaft, External Approach (ICD-10-PCS; 2017-11-30)
PROC: 0QSH04Z Reposition Left Tibia with Internal Fixation Device, Open Approach (ICD-10-PCS; 2017-12-02)
PROC: 0QS8XZZ Reposition Right Femoral Shaft, External Approach (ICD-10-PCS; 2017-12-02)
PROC: 0B9J8ZX Drainage of Left Lower Lung Lobe, Via Natural or Artificial Opening Endoscopic, Diagnostic (ICD-10-PCS; 2017-12-04)
PROC: 0B9C8ZX Drainage of Right Upper Lung Lobe, Via Natural or Artificial Opening Endoscopic, Diagnostic (ICD-10-PCS; 2017-12-04)
PROC: 0B9G8ZX Drainage of Left Upper Lung Lobe, Via Natural or Artificial Opening Endoscopic, Diagnostic (ICD-10-PCS; 2017-12-04)
PROC: 0B9F8ZX Drainage of Right Lower Lung Lobe, Via Natural or Artificial Opening Endoscopic, Diagnostic (ICD-10-PCS; 2017-12-04)
PROC: 0DJ08ZZ Inspection of Upper Intestinal Tract, Via Natural or Artificial Opening Endoscopic (ICD-10-PCS; 2017-12-13)
PROC: 0D598ZZ Destruction of Duodenum, Via Natural or Artificial Opening Endoscopic (ICD-10-PCS; 2017-12-20)
PROC: 0BH17EZ Insertion of Endotracheal Airway into Trachea, Via Natural or Artificial Opening (ICD-10-PCS; 2017-12-20)
PROC: 5A1945Z Respiratory Ventilation, 24-96 Consecutive Hours (ICD-10-PCS; 2017-12-20)
PROC: 0DJD8ZZ Inspection of Lower Intestinal Tract, Via Natural or Artificial Opening Endoscopic (ICD-10-PCS; 2017-12-21)
PROC: 0DBN8ZX Excision of Sigmoid Colon, Via Natural or Artificial Opening Endoscopic, Diagnostic (ICD-10-PCS; 2017-12-22)
PROC: 0DJ08ZZ Inspection of Upper Intestinal Tract, Via Natural or Artificial Opening Endoscopic (ICD-10-PCS; 2017-12-27)
PROC: 0DJD8ZZ Inspection of Lower Intestinal Tract, Via Natural or Artificial Opening Endoscopic (ICD-10-PCS; 2017-12-27)
DX: S72.301A Unspecified fracture of shaft of right femur, initial encounter for closed fracture (principal); S27.0XXA Traumatic pneumothorax, initial encounter; J96.01 Acute respiratory failure with hypoxia; J18.9 Pneumonia, unspecified organism; I50.21 Acute systolic (congestive) heart failure; A04.72 Enterocolitis due to Clostridium difficile, not specified as recurrent; S36.030A Superficial (capsular) laceration of spleen, initial encounter; J44.0 Chronic obstructive pulmonary disease with (acute) lower respiratory infection; S52.511B Displaced fracture of right radial styloid process, initial encounter for open fracture type I or II; S22.20XA Unspecified fracture of sternum, initial encounter for closed fracture; E87.0 Hyperosmolality and hypernatremia; D62 Acute posthemorrhagic anemia; E87.2 Acidosis; K92.2 Gastrointestinal hemorrhage, unspecified; S27.322A Contusion of lung, bilateral, initial encounter; S22.43XA Multiple fractures of ribs, bilateral, initial encounter for closed fracture; J44.1 Chronic obstructive pulmonary disease with (acute) exacerbation; K22.10 Ulcer of esophagus without bleeding; S66.326A Laceration of extensor muscle, fascia and tendon of right little finger at wrist and hand level, initial encounter; S66.324A Laceration of extensor muscle, fascia and tendon of right ring finger at wrist and hand level, initial encounter; S66.524A Laceration of intrinsic muscle, fascia and tendon of right ring finger at wrist and hand level, initial encounter; E83.39 Other disorders of phosphorus metabolism; Z23 Encounter for immunization; S06.0X0A Concussion without loss of consciousness, initial encounter; K26.9 Duodenal ulcer, unspecified as acute or chronic, without hemorrhage or perforation; E83.51 Hypocalcemia; E87.5 Hyperkalemia; S82.302A Unspecified fracture of lower end of left tibia, initial encounter for closed fracture; S62.102A Fracture of unspecified carpal bone, left wrist, initial encounter for closed fracture; E03.9 Hypothyroidism, unspecified; I10 Essential (primary) hypertension; K21.0 Gastro-esophageal reflux disease with esophagitis; R70.1 Abnormal plasma viscosity; E87.6 Hypokalemia; N40.1 Benign prostatic hyperplasia with lower urinary tract symptoms; R33.8 Other retention of urine; K56.41 Fecal impaction; K44.9 Diaphragmatic hernia without obstruction or gangrene; K63.5 Polyp of colon; K57.30 Diverticulosis of large intestine without perforation or abscess without bleeding; K64.4 Residual hemorrhoidal skin tags; K64.8 Other hemorrhoids; Z96.652 Presence of left artificial knee joint; Z79.899 Other long term (current) drug therapy; V49.40XA Driver injured in collision with unspecified motor vehicles in traffic accident, initial encounter; Y95 Nosocomial condition
CPT/HCPCS: 31500; 32551; 36415; 36416; 36430; 51702; 70450; 71010; 71045; 71260; 72125; 72170; 74018; 74177; 76000; 76001; 76705; 78278; 80048; 80053; 80076; 81003; 81015; 82150; 82274; 82533; 82553; 82607; 82746; 82805; 83010; 83540; 83550; 83615; 83690; 83735; 83880; 84100; 84484; 85007; 85014; 85018; 85025; 85027; 85046; 85049; 85384; 85610; 85730; 86850; 86900; 86901; 87070; 87077; 87086; 87186; 87205; 87324; 87449; 87493; 88305; 90471; 93005; 93010; 93306; 93970; 94002; 94003; 94640; 94660; 94760; 96361; 96365; 96366; 96374; 96375; 99292; A4216; A9561; A9604; C1713; C1751; C1769; C9113; G0390; G8978-GP-CM; G8979-GP-CJ; G8979-GP-CK; G8979-GP-CL; G8987-GO-CM; G8988-GO-CJ; G8988-GO-CK; G8996-GN-CK; G8997-GN-CI; G8997-GN-CJ; J0131; J0360; J0690; J0696; J1644; J1650; J1720; J1885; J1940; J2001; J2060; J2250; J2270; J2405; J2543; J2704; J2920; J3010; J3430; J3475; J3480; J3490; J7050; J7506; J7608; J7620; P9012; P9016; P9045; S0020; S0028; S0179

== ENCOUNTER 2018-02-10 07:33 | Day surgery (SDC) | payer MEDICARE ==
[2018-02-10] MEDS ORDERED: Albuterol Sulfate 2.5 mg/3 ml Neb NEB SCH (08:15)
[2018-02-10 08:34] LABS: Anion Gap 12 mmol/L (10-20); BUN (Urea Nitrogen) 4 mg/dL (8.4-25.7); Calc. Creatinine Clearance 0 mL/min (70-130); Calcium 8.4 mg/dL (7.8-10.44); Carbon Dioxide 25 mmol/L (23-31); Chloride 109 mmol/L (98-107); Estimated GFR-MDRD Greater than 90; Glucose 110 mg/dL (83-110); Potassium 3.3 mmol/L (3.5-5.1); Sodium 143 mmol/L (136-145)
[2018-02-10] MEDS ORDERED: Fentanyl 250 MCG/5 ML VIAL ONE (09:37)
[2018-02-10] MEDS ORDERED: Sodium Chloride 0.9% 10 ML ONE (09:40)
[2018-02-10] MEDS ORDERED: Bupivacaine 0.5% 10 ML VIAL ONE (09:40)
[2018-02-10] MEDS ORDERED: Bacitracin Zinc Ointment 30 gm TUBE ONE (09:48)
[2018-02-10] MEDS ORDERED: Clindamycin/D5W 600 mg/50 ml Premix Bag ONE (09:52)
[2018-02-10 12:18] LABS: Anion Gap 13 mmol/L (10-20); BUN (Urea Nitrogen) 4 mg/dL (8.4-25.7); Calc. Creatinine Clearance 0 mL/min (70-130); Calcium 8.2 mg/dL (7.8-10.44); Carbon Dioxide 24 mmol/L (23-31); Chloride 110 mmol/L (98-107); Estimated GFR-MDRD Greater than 90; Glucose 104 mg/dL (83-110); Potassium 3.3 mmol/L (3.5-5.1); Sodium 144 mmol/L (136-145)
[2018-02-10] MEDS ORDERED: ePHEDrine/0.9% NaCl/PF SYRINGE 50 mg/10 ml ONE (17:20)
[2018-02-10] MEDS ORDERED: Propofol 200 MG/20 ML VIAL ONE (17:20)
[2018-02-10] MEDS ORDERED: Lidocaine 1% PF 5 ML VIAL ONE (17:20)
[2018-02-10] MEDS ORDERED: Ondansetron HCl/PF 4 MG/2 ML Vial ONE (17:20)
--- NOTE | 2018-02-10 19:36 | RAD ---
RIGHT WRIST: 02/10/18 Two fluoroscopic views from the OR presented. INDICATIONS: Hardware removal right wrist. Intraoperative imaging. FINDINGS/IMPRESSION: These two images show two screws transfixing the distal radius and a single screw transfixing the sca phoid. Tiny screws are also seen within the lunate and trapezium on these two images. POS: [facility]
--- NOTE | 2018-02-11 12:47 | OP ---
DATE OF PROCEDURE: 02/10/2018 PREOPERATIVE DIAGNOSIS: Painful deep wires of right carpus with wires in the following joints: Scap holunate, scaphocapitate, lunotriquetral, and the scaphoid to the capitate. FINDINGS: With the wires removed, stable carpal alignment to include 2 mm wide scapholunate interval , but no DISI deformity. This was only at the bone interface. The carpal joint was made stable. Th ere was no dorsal intercalated instability of note. DESCRIPTION OF PROCEDURE: After successful general LMA technique, limb was prepped and draped. We t alycia brought C-arm into the field to use, identified all the wires cutaneous, easily removing the wire with 2-3 mm of incision at each site. We did that within the parameters stated. There was excellen t stability. The patient then now had the wires all out using the small portals recognized by radiol ogy. ESTIMATED BLOOD LOSS: 5 mL TOURNIQUET TIME: None. There was a stable mid carpal and a well-aligned carpal joint. All wounds were closed with interrupt ed 4-0 Monocryl.
== END 2018-02-10 13:35 | disposition home or self-care (01) ==
LOC: SDC 07:33
PROVIDERS: ATTEND Orthopaedic Surgery Hand Surgery
PROC: 0PPM04Z Removal of Internal Fixation Device from Right Carpal, Open Approach (ICD-10-PCS; principal; 2018-02-10)
DX: T84.84XA Pain due to internal orthopedic prosthetic devices, implants and grafts, initial encounter (principal); J44.9 Chronic obstructive pulmonary disease, unspecified; M19.90 Unspecified osteoarthritis, unspecified site; Z79.899 Other long term (current) drug therapy; Z98.890 Other specified postprocedural states
CPT/HCPCS: 36415; 76000; 93005; 93010; A4216; J2001; J2405; J2704; J3010; J3480; J3490; J7050

== ENCOUNTER 2018-03-31 11:07 | Outpatient (CLI) | payer MEDICARE ==
--- NOTE | 2018-03-31 12:44 | RAD ---
CHEST TWO VIEWS: History: Dyspnea. Comparison: 04-09-17, 02-18-18 FINDINGS: Heart size is within normal limits. There are atherosclerotic changes of the aorta. Pleural and paren chymal changes in the lung bases appear chronic and stable in appearance. IMPRESSION: Stable bibasilar parenchymal changes and right sided pleural changes. POS: [facility]
== END 2018-03-31 11:08 | disposition home or self-care (01) ==
LOC: RAD 11:07
PROVIDERS: ATTEND Internal Medicine Critical Care Medicine
DX: R06.00 Dyspnea, unspecified (principal); J98.4 Other disorders of lung
CPT/HCPCS: 71046

== ENCOUNTER 2018-06-29 10:01 | Outpatient (CLI) | payer MEDICARE ==
--- NOTE | 2018-06-29 12:55 | ULT ---
ULTRASOUND ABDOMEN COMPLETE: 06/29/2018 HISTORY: An 83-year-old male with generalized abdominal pain. FINDINGS: Liver: Normal echogenicity. Gallbladder: Large number of small gallstones, several millimeters in size each, at least most of th em mobile. Normal wall thickness. No pericholecystic fluid. Positive tenderness over the gallbladd er. Common duct: 3 mm. Spleen: No splenomegaly. Pancreas: Almost completely obscured by shadowing from bowel gas. Kidneys: No hydronephrosis. Abdominal aorta: No aneurysm proximally. Mid and distal portions completely obscured by shadowing f rom bowel gas. Inferior vena cava: Unremarkable intrahepatic portion, except for mild dilation, in addition to mild dilation of hepatic veins. IMPRESSION: 1. Positive for cholelithiasis. 2. Dilation of hepatic veins raises the possibility of congestive heart failure. Recommended clinic al correlation. GRISEL Fajardo POS: [facility]
== END 2018-06-29 10:02 | disposition home or self-care (01) ==
LOC: SCSULT 10:01
PROVIDERS: ATTEND Family Medicine
DX: R10.84 Generalized abdominal pain (principal); K80.20 Calculus of gallbladder without cholecystitis without obstruction; K76.1 Chronic passive congestion of liver
CPT/HCPCS: 76700

== ENCOUNTER 2018-07-30 15:22 | Outpatient (CLI) | payer MEDICARE ==
[2018-07-30 17:19] LABS: #Eosinphils 0.2 thou/uL (0.0-0.7); #Lymphocytes 1.5 thou/uL (1.20-3.40); #Monocytes 0.7 thou/uL (0.11-0.59); #Neutrophils 7.5 thou/uL (1.40-6.50); %Basophils 0.3 % (0.0-1.0); %Eosinophils 2.3 % (0.0-10.0); %Lymphocytes 14.9 % (21.0-51.0); %Monocytes 6.9 % (0.0-10.0); %Neutrophils 75.5 % (42.0-75.0); Hemoglobin 12.8 g/dL (14.0-18.0); Mean Corpuscular HGB CONC 33.8 g/dL (32.0-36.0); Mean Corpuscular Volume 88.7 fL (78.0-98.0); Mean Platelet Volume 6.7 fL (7.4-10.4); Platelet Count 203 thou/uL (130-400); RBC Distribution Width 14.2 % (11.5-14.5); Red Blood Cell (RBC) Count 4.26 mill/uL (4.70-6.10); White Blood Cell (WBC) Count 9.9 thou/uL (4.8-10.8)
[2018-07-30 17:43] LABS: ALT (SGPT) Less than 7 U/L (8-55); AST (SGOT) 12 U/L (5-34); Albumin 4.2 g/dL (3.4-4.8); Alkaline Phosphatase 82 U/L (40-150); Anion Gap 11 mmol/L (10-20); BUN (Urea Nitrogen) 17 mg/dL (8.4-25.7); Bilirubin, Direct 0.2 mg/dL (0.1-0.3); Bilirubin, Total 0.5 mg/dL (0.2-1.2); Calc. Creatinine Clearance 0 mL/min (70-130); Calcium 9.5 mg/dL (7.8-10.44); Carbon Dioxide 25 mmol/L (23-31); Chloride 101 mmol/L (98-107); Estimated GFR-MDRD 65; Globulin 3.3 g/dL (2.4-3.5); Glucose 84 mg/dL (83-110); Potassium 4.3 mmol/L (3.5-5.1); Protein, Total 7.5 g/dL (5.8-8.1); Sodium 133 mmol/L (136-145)
--- NOTE | 2018-07-31 12:14 | EKG ---
Test Reason : Blood Pressure : / mmHG Vent. Rate : 079 BPM Atrial Rate : 079 BPM P-R Int : 204 ms QRS Dur : 090 ms QT Int : 382 ms P-R-T Axes : 066 057 053 degrees QTc Int : 438 ms Normal sinus rhythm Normal ECG Confirmed by SHANTAL SEGAL ([id number]) on 07/31/2018 12:13:51 PM Referred By: ALINE Confirmed By:SHANTAL SEGAL
== END 2018-07-30 15:23 | disposition home or self-care (01) ==
LOC: LABBT 15:22
PROVIDERS: ATTEND Surgery
DX: Z01.818 Encounter for other preprocedural examination (principal); K80.20 Calculus of gallbladder without cholecystitis without obstruction; K40.90 Unilateral inguinal hernia, without obstruction or gangrene, not specified as recurrent
CPT/HCPCS: 80053; 80076; 85025; 93005; 93010

== ENCOUNTER 2018-07-31 14:10 | Day surgery (SDC) | payer MEDICARE ==
[2018-07-30 15:48] VITALS: BMI 25.0
[2018-07-31] MEDS ORDERED: cefOXitin 2 GM VIAL ONE (14:26)
[2018-07-31] MEDS ORDERED: Sodium Chloride 0.9% 100 ML ONE (14:26)
[2018-07-31] MEDS ORDERED: Bupivacaine/Epinephrine 0.25% 30 ML VIAL ONE (14:36)
[2018-07-31] MEDS ORDERED: Fentanyl 100 MCG/2 ML VIAL ONE ×3 (14:43→17:23)
[2018-07-31] MEDS ORDERED: hydrALAZINE 20 MG/ML VIAL ONE (15:42)
[2018-07-31] MEDS ORDERED: HYDROcodone/Acetaminophen 5/325 mg Tablet ONE (18:13)
--- NOTE | 2018-07-31 19:14 | OP ---
DATE OF PROCEDURE: 07/31/2018 PREOPERATIVE DIAGNOSES: Symptomatic cholelithiasis and symptomatic right inguinal hernia. SURGEON: Antwon Krishnamurthy M.D. PROCEDURE PERFORMED: Laparoscopic cholecystectomy and right inguinal hernia repair with mesh. INDICATIONS: An 83-year-old male who has a painful right inguinal hernia as well as been having epis odic right upper quadrant pain, worse after eating. Ultrasound shows cholelithiasis. FINDINGS: Dense adhesions to the gallbladder of omentum and the duodenum. He had a small cystic evangelista t. He had a pantaloon right inguinal hernia. PROCEDURE IN DETAIL: After informed consent was obtained, the patient was taken to the operating mely m and given general endotracheal anesthesia. He was placed in the supine position. The abdomen was prepped and draped in the usual fashion. Local anesthesia infiltrated subcutaneously and deep. A garcia bumbilical incision was performed. The subcu divided sharply. The fascia grasped and two stay sutur es of 0 Vicryl placed on each side of midline. Midline incised. Digital palpation revealed no local adhesions. A blunt 10-12 mm trocar inserted. Pneumoperitoneum was created to a pressure of 15 mmHg . Zero-degree laparoscope inserted under direct vision. Three 5 mm ports placed subcostally. Gallb ladder grasped and advanced superiorly. It was encased with omentum. The omentum was taken off the surface of the gallbladder using sharp and blunt dissection. Then, the peritoneum lysed distally to expose the cystic duct and artery in critical view. The artery and duct were triply ligated with Hem oclips and divided. The gallbladder was removed from its fossa utilizing electrocautery, removed fro m the abdomen through the umbilical port. Hemostasis achieved utilizing electrocautery as well as Ar ista powder. The abdomen irrigated and irrigation fluid removed. Hemostasis was assured. Trocars a nd retractors removed. The fascia closed with interrupted 0 Vicryl suture. The skin closed with int errupted 4-0 Rapide. Steri-Strips applied. I then moved down to the groin. A right transverse ingu inal incision was performed. Subcu divided sharply. This was done after local anesthesia infiltrate d subcutaneously and deep. The external oblique fascia was incised in direction of its fibers throug h the external ring. The spermatic cord was isolated with a [place] drain. A large hernia sac was d issected from surrounding cord structures down to the internal ring. He also had a direct inguinal h ernia. The direct inguinal hernia was circumscribed and reduced. The hernia sac was reduced. A PHS hernia system was inserted to maintain reduction of both hernias. The posterior layer was placed in the preperitoneal space, anterior was laid out, sutured to the pubic tubercle with a 2-0 Prolene sut ure, tucked under the external oblique fascia laterally. Then hemostasis assured. The cord placed a natomic and the external oblique fascia closed with a running 3-0 Vicryl. Lourdes's closed with inter rupted 3-0 Vicryl and the skin closed with a running subcuticular 4-0 Rapide. Steri-Strips applied. Sterile bandage applied. The patient tolerated the procedure well and was transferred to recovery i n good condition. Sponge and needle count verified correct x2.
== END 2018-07-31 22:15 | disposition home or self-care (01) ==
LOC: SDC 14:10
PROVIDERS: ATTEND Surgery
PROC: 0YU50JZ Supplement Right Inguinal Region with Synthetic Substitute, Open Approach (ICD-10-PCS; principal; 2018-07-31)
PROC: 0FT44ZZ Resection of Gallbladder, Percutaneous Endoscopic Approach (ICD-10-PCS; 2018-07-31)
DX: K80.10 Calculus of gallbladder with chronic cholecystitis without obstruction (principal); K40.90 Unilateral inguinal hernia, without obstruction or gangrene, not specified as recurrent; J44.9 Chronic obstructive pulmonary disease, unspecified; M19.90 Unspecified osteoarthritis, unspecified site; Z87.891 Personal history of nicotine dependence; Z79.51 Long term (current) use of inhaled steroids; Z79.899 Other long term (current) drug therapy
CPT/HCPCS: 47562; 49505; 51798; 80053; 80076; 85025; 93005; 96374; C1781; 88304; 93010; J0360; J0694; J3010; J7050; J7620

== ENCOUNTER 2018-08-07 12:24 | Inpatient (IN) | payer MEDICARE ==
[2018-08-07 13:11] LABS: #Eosinphils 0.1 thou/uL (0.0-0.7); #Lymphocytes 0.8 thou/uL (1.20-3.40); #Monocytes 1.1 thou/uL (0.11-0.59); #Neutrophils 10.6 thou/uL (1.40-6.50); %Eosinophils 0.6 % (0.0-10.0); %Monocytes 8.8 % (0.0-10.0); %Neutrophils 84.5 % (42.0-75.0); Mean Corpuscular HGB CONC 32.8 g/dL (32.0-36.0); Mean Corpuscular Hemoglobin 29.7 pg (27.0-31.0); Mean Corpuscular Volume 90.5 fL (78.0-98.0); Mean Platelet Volume 6.8 fL (7.4-10.4); Platelet Count 380 thou/uL (130-400); RBC Distribution Width 14.5 % (11.5-14.5); Red Blood Cell (RBC) Count 4.37 mill/uL (4.70-6.10); White Blood Cell (WBC) Count 12.6 thou/uL (4.8-10.8)
--- NOTE | 2018-08-07 13:13 | RAD ---
CHEST 1 VIEW UPRIGHT PORTABLE: HISTORY: An 83-year-old male with a history of dyspnea. Surgery on 08/01/18 for hernia repair and cholecystecto my. FINDINGS: Monitor leads overlie the chest. Borderline cardiomegaly. Minimal increased markings in the left ba se but overall stable. Alveolar parenchymal changes in the right lower lobe with some blunting of th e right costophrenic angle, evidence for a small right pleural effusion and probable right lower lobe pneumonia. IMPRESSION: Pleural and parenchymal changes in the right base probably representing some right lower lobe pneumon ia and small pleural effusion. Stable increased markings in the left base. Atherosclerosis of the a sharmin with ectasia. POS: [facility]
[2018-08-07 13:39] LABS: ALT (SGPT) 14 U/L (8-55); AST (SGOT) 38 U/L (5-34); Albumin 3.8 g/dL (3.4-4.8); Alkaline Phosphatase 178 U/L (40-150); Anion Gap 13 mmol/L (10-20); BUN (Urea Nitrogen) 47 mg/dL (8.4-25.7); Bilirubin, Total 0.7 mg/dL (0.2-1.2); Calc. Creatinine Clearance 0 mL/min (70-130); Calcium 9.2 mg/dL (7.8-10.44); Carbon Dioxide 29 mmol/L (23-31); Chloride 99 mmol/L (98-107); Estimated GFR-MDRD 62; Globulin 3.6 g/dL (2.4-3.5); Glucose 120 mg/dL (83-110); Protein, Total 7.4 g/dL (5.8-8.1); Sodium 137 mmol/L (136-145)
[2018-08-07 13:42] LABS: Troponin I 0.168 ng/mL (< 0.028)
[2018-08-07] MEDS ORDERED: Piperacillin/Tazobactam 3.375 GM VIAL ONE (13:47)
[2018-08-07] MEDS ORDERED: Acetaminophen 500 MG TAB ONE (13:51)
[2018-08-07 13:53] LABS: CKMB 14.4 ng/mL (0-6.6)
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
[2018-08-07 15:23] LABS: Troponin I 0.172 ng/mL (< 0.028)
[2018-08-07] MEDS ORDERED: Ondansetron ODT 4 MG TAB PO PRN (16:56)
[2018-08-07] MEDS ORDERED: Nitroglycerin 2% Ointment 1 INCH/1 GM Packet TOP SCH (17:45)
[2018-08-07] MEDS ORDERED: predniSONE 20 MG TAB PO SCH (18:15)
[2018-08-07] MEDS ORDERED: Labetalol HCl 100 MG/20 ML VIAL SLOW IVP PRN (18:24)
[2018-08-07 19:42] LABS: Troponin I 0.157 ng/mL (< 0.028)
[2018-08-07 19:44] LABS: CKMB 11.9 ng/mL (0-6.6); Critical Call CKMBM RESULT DECREASING
[2018-08-07] MEDS: Piperacillin/Tazobactam 4.5 GM in Sodium Chloride 0.9% 100 ML IVPB SCH (21:06)
[2018-08-07] MEDS: Famotidine 20 MG TAB PO SCH (21:06)
[2018-08-07 22:09] LABS: Bilirubin Negative (Negative); Blood, Urine Small (Negative); Clarity CLEAR (Clear); Glucose, Urine (Dipstick) Negative (Negative); Leukocyte Negative (Negative); Nitrite Negative (Negative); Protein, Urine (Dipstick) 30 mg/dL (Neg-Trace); Specific Gravity, Urine 1.025 (1.002-1.036)
[2018-08-07 22:14] LABS: Bacteria/HPF None Seen HPF (None Seen); Hyaline Casts/LPF 0-3 HYALINE CAST LPF (0-3 Hyaline); RBC/HPF 0-3 HPF (0-3); Squamous Epithelial 0-3 HPF (0-3); WBC/HPF 0-3 HPF (0-3)
[2018-08-07 22:15] LABS: Legionella Urinary Ag Negative (Negative); Strep pneumo Urine Ag NEGATIVE (NEGATIVE)
[2018-08-07] MEDS ORDERED: Sodium Chloride 0.9% 500 ML IV SCH (22:30)
[2018-08-08] MEDS: Piperacillin/Tazobactam 4.5 GM in Sodium Chloride 0.9% 100 ML IVPB SCH ×3 (01:37→16:34)
[2018-08-08] MEDS: Vancomycin HCl 750 MG in Sodium Chloride 0.9% 250 ML 250 ML IVPB SCH ×2 (02:44→14:00)
[2018-08-08 05:00] LABS: Anion Gap 12 mmol/L (10-20); BUN (Urea Nitrogen) 31 mg/dL (8.4-25.7); Calc. Creatinine Clearance 64 mL/min (70-130); Calcium 8.5 mg/dL (7.8-10.44); Carbon Dioxide 26 mmol/L (23-31); Cardiac Risk 4.2 (Less than 4.5); Chloride 103 mmol/L (98-107); Cholesterol 126 mg/dl (< 200 Desired); Estimated GFR-MDRD 79; Glucose 142 mg/dL (83-110); HDL Cholesterol 30 mg/dL (>60 Neg Risk); LDL Cholesterol, Calculated 82 mg/dL; Potassium 4.3 mmol/L (3.5-5.1); Sodium 137 mmol/L (136-145); Triglycerides 71 mg/dL (Less than 150)
[2018-08-08 05:04] LABS: Band 4 % (5-11); Eosinophils 1 % (0-10); Hemoglobin 11.8 g/dL (14.0-18.0); Lymphocytes 1 % (21-51); MDiff Complete? YES; Mean Corpuscular HGB CONC 33.1 g/dL (32.0-36.0); Mean Corpuscular Hemoglobin 29.9 pg (27.0-31.0); Mean Corpuscular Volume 90.3 fL (78.0-98.0); Mean Platelet Volume 6.8 fL (7.4-10.4); Neutrophil 94 % (42-75); PLT Morphology Comment Appears Adequate; Platelet Count 336 thou/uL (130-400); RBC Distribution Width 14.4 % (11.5-14.5); Red Blood Cell (RBC) Count 3.95 mill/uL (4.70-6.10); White Blood Cell (WBC) Count 13.7 thou/uL (4.8-10.8)
[2018-08-08 05:16] LABS: Thyroid Stimulating Hormone 1.4321 uIU/mL (0.35-4.94)
[2018-08-08] MEDS ORDERED: ISOVUE-370 76%-LOCM 1 ML ONE (07:32)
[2018-08-08] MEDS: predniSONE 20 MG TAB PO SCH (08:43)
[2018-08-08] MEDS: Amlodipine 10 MG TAB PO SCH (08:43)
[2018-08-08] MEDS: Enoxaparin Sodium 40 MG/0.4 ML SYRINGE SC SCH (08:44)
[2018-08-08] MEDS: Aspirin 81 mg Enteric Coated Tablet PO SCH (08:44)
[2018-08-08] MEDS: Guaifenesin DM 100-10/5 ML UDCUP PO PRN ×2 (08:47→20:36)
[2018-08-08] MEDS ORDERED: Prevnar 13-Val Conj/PF 0.5 ML SYRINGE IM ONE (09:00)
[2018-08-08] MEDS ORDERED: Aspirin 325 MG TAB PO SCH (09:00)
[2018-08-08] MEDS: Acetaminophen 325 MG TAB PO SCH ×3 (11:59→23:04)
[2018-08-08] MEDS: Ibuprofen 600 MG TAB PO PRN (16:36)
--- NOTE | 2018-08-08 17:01 | CT ---
CT CHEST WITH IV CONTRAST: 08/08/18 HISTORY: Pneumonia. Infiltrate. COMPARISON: 11/28/17. FINDINGS: Small amount of right pleural fluid. Moderate right lower lobe infiltrate consisting of air space dis ease and some air bronchograms. Involves primarily the posterior basilar segment. Scattered tiny nons pecific subpleural nodules. Lungs are otherwise hyperinflated. Old bilateral rib fractures with signi ficant deformity of the right chest wall. Calcification throughout the arterial structures. IMPRESSION: Right lower lobe infiltrate in a position sometimes seen with aspiration. Airways are patent. Small r ight pleural effusion. COPD. Old posttraumatic changes of the chest. Atherosclerosis. POS: [facility]
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
--- NOTE | 2018-08-08 18:26 | PDOC.FM ---
- Subjective Subjective: Pt. reports he did well overnight. He denies sob, chest pain. He does report abdominal pain over his incision sites from surgery one week ago. Denies nausea/ vomiting - Objective MAR Reviewed: Yes Vital Signs & Weight: Vital Signs (12 hours) Temp Pulse Pulse Pulse Resp BP BP 08/08/18 17:01 98.1 F 74 18 08/08/18 14:00 78 84 132/71 103/56 L 08/08/18 12:39 08/08/18 12:37 72 16 08/08/18 11:10 97.5 F L 74 18 08/08/18 08:35 97.9 F 86 18 08/08/18 08:20 24 H 08/08/18 06:26 74 16 BP BP BP Pulse Ox Pulse Ox Pulse Ox 08/08/18 17:01 122/60 96 08/08/18 14:00 95 90 L 08/08/18 12:39 97 08/08/18 12:37 97 08/08/18 11:10 145/68 H 96 08/08/18 08:35 159/73 H 136/70 127/64 94 L 08/08/18 08:20 86 L 08/08/18 06:26 94 L Weight Admit Weight 74.616 kg Weight 74.707 kg I&O: 08/07/18 08/08/18 08/09/18 06:59 06:59 06:59 Intake Total 950 Output Total 775 Balance 175 Result Diagrams: 08/08/18 04:12 08/08/18 04:12 <Bladimir Dela Cruz - Last Filed: 08/08/18 18:24> - Objective Vital Signs & Weight: Vital Signs (12 hours) Temp Pulse Pulse Pulse Resp BP BP 08/08/18 23:02 98.3 F 71 24 H 08/08/18 20:36 98 F 82 20 08/08/18 20:29 98 F 82 20 08/08/18 19:05 08/08/18 19:04 08/08/18 17:01 98.1 F 74 18 08/08/18 14:00 78 84 132/71 103/56 L 08/08/18 12:39 08/08/18 12:37 72 16 BP BP BP Pulse Ox Pulse Ox Pulse Ox 08/08/18 23:02 110/56 L 95 08/08/18 20:36 97 08/08/18 20:29 114/58 L 97 08/08/18 19:05 98 08/08/18 19:04 98 08/08/18 17:01 122/60 96 08/08/18 14:00 95 90 L 08/08/18 12:39 97 08/08/18 12:37 97 Weight Admit Weight 74.616 kg Weight 74.707 kg I&O: 08/07/18 08/08/18 08/09/18 06:59 06:59 06:59 Intake Total 950 Output Total 775 Balance 175 Result Diagrams: 08/08/18 04:12 08/08/18 04:12 <Ally Brown - Last Filed: 08/08/18 23:30> Phys Exam - Physical Examination Constitutional: NAD HEENT: PERRLA, moist MMs Neck: no JVD, full ROM Coarse lungs sounds with basilar crackles Cardiovascular: RRR, no significant murmur Gastrointestinal: soft, no distention, positive bowel sounds mild tenderness over incision sites Musculoskeletal: pulses present, edema present (+1 pitting edema) Neurological: normal sensation, moves all 4 limbs Psychiatric: normal affect, A&O x 3 Skin: normal turgor, cap refill <2 seconds Deviation from normal: Incisions healing well. <Bladimir Dela Cruz - Last Filed: 08/08/18 18:24> Dx/Plan (1) COPD (chronic obstructive pulmonary disease) Status: Chronic (2) HTN (hypertension) Code(s): I10 - ESSENTIAL (PRIMARY) HYPERTENSION Status: Chronic (3) Hypothyroid Code(s): E03.9 - HYPOTHYROIDISM, UNSPECIFIED Status: Chronic - Plan Plan: 83 yo male with PMH of COPD, HTN, Hypothyroidism Weakness and cough likely 2/2 COPD exacerbation vs. HAP -We are treating with vanc and zosyn currently. He had a negative procalcitonin leading us to believe this is more than likely related to his COPD. We plan to deescalate his abx after an EKG due to concern of prolonged QT interval and Azithromycin. If prolonged, we will use doxycyclin. He also has some pitting edema and basilar crackles which may point to an undiagnosed CHF which may further exacerbate his condition. We will consider adding lasix based on his clinical picture later today. We will consult cardiology due to his bump in troponin and CKMB and appreciate their recommendations. Pt. has also had multiple CXR over the span of months with a similar right lobe infiltrate. We will obtain CT to rule out any chronic processes. HTN -Continue home meds Hypothyroidism -Continue home meds. Code: full Prophylaxis: Lovenox Family: none at bedside Disposition: home in 1-2 days <Bladimir Dela Cruz - Last Filed: 08/08/18 18:24> Attending Addendum - Attending Addendum Date/Time: 08/08/18728 I personally evaluated the patient and discussed the management with Dr. Dela Cruz. I agree with the History, Examination, Assessment and Plan documented above with any addition or exceptions noted below. The patient is on zosyn and vancomycin for pneumonia. He has wheezing bilaterally with left greater than right this morning. This is likely a mixed picture of copd and pneumonia. Will get a CT chest today to further evaluate for the pneumonia. Likely add spiriva. Cardiology is being consulted with elevated cardiac enzymes. echo is pending. Will also add IS. <Ally Brown - Last Filed: 08/08/18 23:30>
[2018-08-08] MEDS: Famotidine 20 MG TAB PO SCH (20:36)
[2018-08-08] MEDS: Amoxicillin/Potassium Clav 500 MG TAB PO SCH (21:28)
[2018-08-08] MEDS ORDERED: Vancomycin HCl 1 GM in Sodium Chloride 0.9% 250 ML 300 ML IVPB SCH (23:00)
[2018-08-09 01:03] LABS: #Lymphocytes 0.5 thou/uL (1.20-3.40); #Monocytes 0.7 thou/uL (0.11-0.59); %Eosinophils 0.1 % (0.0-10.0); %Lymphocytes 3.5 % (21.0-51.0); %Monocytes 5.2 % (0.0-10.0); %Neutrophils 91.3 % (42.0-75.0); Mean Corpuscular HGB CONC 32.6 g/dL (32.0-36.0); Mean Corpuscular Hemoglobin 29.8 pg (27.0-31.0); Mean Corpuscular Volume 91.2 fL (78.0-98.0); Mean Platelet Volume 6.5 fL (7.4-10.4); Platelet Count 295 thou/uL (130-400); RBC Distribution Width 14.5 % (11.5-14.5); White Blood Cell (WBC) Count 13.1 thou/uL (4.8-10.8)
[2018-08-09 01:21] LABS: Vancomycin, Trough 9.9 ug/mL
[2018-08-09 01:28] LABS: Anion Gap 12 mmol/L (10-20); BUN (Urea Nitrogen) 28 mg/dL (8.4-25.7); Calc. Creatinine Clearance 55 mL/min (70-130); Calcium 8.4 mg/dL (7.8-10.44); Carbon Dioxide 23 mmol/L (23-31); Chloride 105 mmol/L (98-107); Estimated GFR-MDRD 67; Glucose 184 mg/dL (83-110); Potassium 4.3 mmol/L (3.5-5.1); Sodium 136 mmol/L (136-145)
[2018-08-09] MEDS: Amoxicillin/Potassium Clav 500 MG TAB PO SCH ×4 (05:42→21:52)
[2018-08-09] MEDS: Acetaminophen 325 MG TAB PO SCH ×4 (05:42→20:26)
--- NOTE | 2018-08-09 05:58 | PDOC.FM ---
- Subjective Subjective: Pt. reports he is doing well. He has some shortness of breath that improved with a breathing treatment. His CT showed aspiration and when questioned, he states that often food goes down the wrong tube. I also showed him his CT and explained why we got it and our plan going forward. - Objective MAR Reviewed: Yes Vital Signs & Weight: Vital Signs (12 hours) Temp Pulse Resp BP BP BP BP 08/09/18 03:25 98.1 F 71 24 H 125/70 123/65 117/61 08/09/18 00:10 08/08/18 23:04 08/08/18 23:02 98.3 F 71 24 H 110/56 L 08/08/18 20:36 98 F 82 20 08/08/18 20:29 98 F 82 20 114/58 L 08/08/18 19:05 08/08/18 19:04 Pulse Ox 08/09/18 03:25 96 08/09/18 00:10 98 08/08/18 23:04 95 08/08/18 23:02 95 08/08/18 20:36 97 08/08/18 20:29 97 08/08/18 19:05 98 08/08/18 19:04 98 Weight Admit Weight 74.616 kg Weight 76.067 kg I&O: 08/07/18 08/08/18 08/09/18 06:59 06:59 06:59 Intake Total 950 490 Output Total 775 200 Balance 175 290 Result Diagrams: 08/09/18 00:53 08/09/18 00:53 <Bladimir Dela Cruz - Last Filed: 08/09/18 10:24> - Objective Vital Signs & Weight: Vital Signs (12 hours) Temp Pulse Pulse Pulse Resp BP BP 08/09/18 16:03 98.8 F 74 18 08/09/18 13:38 76 16 08/09/18 12:05 97.4 F L 78 18 08/09/18 11:46 78 81 170/80 H 138/67 08/09/18 09:24 75 08/09/18 08:03 97.0 F L 75 18 08/09/18 06:55 08/09/18 06:53 69 16 BP Pulse Ox Pulse Ox Pulse Ox 08/09/18 16:03 133/64 96 08/09/18 13:38 96 08/09/18 12:05 170/80 H 97 08/09/18 11:46 96 96 08/09/18 09:24 08/09/18 08:03 132/64 93 L 08/09/18 06:55 96 08/09/18 06:53 96 Weight Admit Weight 74.616 kg Weight 76.067 kg I&O: 08/08/18 08/09/18 08/10/18 06:59 06:59 06:59 Intake Total 950 490 Output Total 775 200 Balance 175 290 Result Diagrams: 08/09/18 00:53 08/09/18 00:53 <Ally Brown - Last Filed: 08/09/18 17:09> Phys Exam - Physical Examination Constitutional: NAD HEENT: moist MMs Neck: no JVD Air movement, diffuse coarse lung sounds with rhonchi Cardiovascular: RRR, no significant murmur Gastrointestinal: soft, non-tender, no distention, positive bowel sounds Musculoskeletal: pulses present, edema present (mild) Neurological: moves all 4 limbs Psychiatric: normal affect, A&O x 3 Skin: normal turgor <Bladimir Dela Cruz - Last Filed: 08/09/18 10:24> Dx/Plan (1) COPD (chronic obstructive pulmonary disease) Status: Chronic (2) HTN (hypertension) Code(s): I10 - ESSENTIAL (PRIMARY) HYPERTENSION Status: Chronic (3) Hypothyroid Code(s): E03.9 - HYPOTHYROIDISM, UNSPECIFIED Status: Chronic - Plan Plan: 83 yo male with PMH of COPD, HTN, Hypothyroidism Weakness and cough likely 2/2 COPD exacerbation vs. HAP - He had a negative procalcitonin leading us to believe this is more than likely related to his COPD. We changed his abx to augmentin due to his prolonged QTc interval. He also has some pitting edema and basilar crackles which may point to an undiagnosed CHF which may further exacerbate his condition. We will consider adding lasix based on his clinical picture later today. Cardiology was consulted and advised performing a stress test when pt. is more stable as well as obtaining previous records. Pt. has also had multiple CXR over the span of months with a similar right lobe infiltrate. We obtained a chest CT that showed increased infiltrate consistent with aspiration as well as a small right pleural effusion. Pt. also had a echo that shows diastolic dysfunction with EF >60-65. We will consult speech to evaluate his aspiration risk. We are also adding spiriva to his regiment with PRN duonebs. HTN -Continue home meds Hypothyroidism -Continue home meds. Code: full Prophylaxis: Lovenox Family: none at bedside Disposition: home in 1-2 days <Bladimir Dela Cruz - Last Filed: 08/09/18 10:24> Attending Addendum - Attending Addendum Date/Time: 08/09/18705 I personally evaluated the patient and discussed the management with Dr. Dela Cruz. I agree with the History, Examination, Assessment and Plan documented above with any addition or exceptions noted below. Pt's breath sounds were initally diminished but improved after neb treatment with wheezing heard bilaterally. Pt's CT was concerning for an aspiration pneumonia. Pt was placed on augmentin yesterday. White count is slightly improved. Afebrile. Will consult speech therapy to evaluate for aspiration. Add spiriva, continue nebs, prednisone. Echo reviewed showing diastolic dysfunction. Will need stress test when breathing is improved. <Ally Brown - Last Filed: 08/09/18 17:09>
[2018-08-09] MEDS: Amlodipine 10 MG TAB PO SCH (09:24)
[2018-08-09] MEDS: Aspirin 81 mg Enteric Coated Tablet PO SCH (09:25)
[2018-08-09] MEDS: predniSONE 20 MG TAB PO SCH (09:25)
[2018-08-09] MEDS: Enoxaparin Sodium 40 MG/0.4 ML SYRINGE SC SCH (09:25)
[2018-08-09] MEDS ORDERED: Furosemide 20 MG TAB PO SCH (10:45)
[2018-08-09] MEDS ORDERED: Furosemide 40 MG TAB PO SCH (11:00)
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
[2018-08-09] MEDS: Famotidine 20 MG TAB PO SCH (20:25)
[2018-08-09] MEDS: Guaifenesin DM 100-10/5 ML UDCUP PO PRN (20:26)
[2018-08-09] MEDS: Ibuprofen 600 MG TAB PO PRN (23:13)
[2018-08-10 05:18] LABS: #Lymphocytes 0.7 thou/uL (1.20-3.40); #Monocytes 0.8 thou/uL (0.11-0.59); #Neutrophils 10.1 thou/uL (1.40-6.50); %Basophils 0.1 % (0.0-1.0); %Eosinophils 0.1 % (0.0-10.0); %Lymphocytes 5.8 % (21.0-51.0); %Monocytes 6.8 % (0.0-10.0); %Neutrophils 87.2 % (42.0-75.0); Hemoglobin 10.8 g/dL (14.0-18.0); Mean Corpuscular Hemoglobin 28.8 pg (27.0-31.0); Mean Corpuscular Volume 92.9 fL (78.0-98.0); Mean Platelet Volume 6.6 fL (7.4-10.4); Platelet Count 306 thou/uL (130-400); RBC Distribution Width 14.3 % (11.5-14.5); Red Blood Cell (RBC) Count 3.76 mill/uL (4.70-6.10); White Blood Cell (WBC) Count 11.5 thou/uL (4.8-10.8)
[2018-08-10 05:25] LABS: Anion Gap 14 mmol/L (10-20); BUN (Urea Nitrogen) 21 mg/dL (8.4-25.7); Calc. Creatinine Clearance 70 mL/min (70-130); Calcium 8.5 mg/dL (7.8-10.44); Carbon Dioxide 27 mmol/L (23-31); Chloride 102 mmol/L (98-107); Estimated GFR-MDRD 87; Glucose 103 mg/dL (83-110); Potassium 4.7 mmol/L (3.5-5.1); Sodium 138 mmol/L (136-145)
--- NOTE | 2018-08-10 05:50 | PDOC.FM ---
- Subjective Subjective: NAEO. Patient states he feels. Denies any CP, SOB, LE edema, N/V, diarrhea, constipation. - Objective MAR Reviewed: Yes Vital Signs & Weight: Vital Signs (12 hours) Temp Pulse Resp BP Pulse Ox 08/10/18 03:49 92 L 08/10/18 03:38 97.5 F L 70 12 127/63 91 L 08/10/18 00:01 96 08/09/18 20:26 98.6 F 81 24 H 94 L 08/09/18 20:00 98.6 F 81 24 H 121/64 94 L 08/09/18 19:41 96 08/09/18 19:39 96 Weight Admit Weight 74.616 kg Weight 76.067 kg I&O: 08/08/18 08/09/18 08/10/18 06:59 06:59 06:59 Intake Total 950 490 Output Total 775 200 Balance 175 290 Result Diagrams: 08/10/18 04:43 08/10/18 04:43 <Denise Byrd - Last Filed: 08/10/18 11:43> - Objective Vital Signs & Weight: Vital Signs (12 hours) Temp Pulse Resp BP Pulse Ox 08/10/18 12:48 80 14 08/10/18 12:00 97.8 F 78 20 154/79 H 96 08/10/18 08:00 98.5 F 70 20 154/79 H 99 08/10/18 07:40 98.5 F 70 20 99 08/10/18 06:53 92 L 08/10/18 06:51 82 L 08/10/18 03:50 91 L 08/10/18 03:49 92 L 08/10/18 03:38 97.5 F L 70 12 127/63 91 L Weight Admit Weight 74.616 kg Weight 76.067 kg I&O: 08/09/18 08/10/18 08/11/18 06:59 06:59 06:59 Intake Total 490 740 Output Total 200 750 Balance 290 -10 Result Diagrams: 08/10/18 04:43 08/10/18 04:43 <Neri Bautista - Last Filed: 08/10/18 13:19> Phys Exam - Physical Examination Constitutional: NAD HEENT: moist MMs, sclera anicteric Neck: supple, full ROM Respiratory: no wheezing, no rales, no rhonchi, clear to auscultation bilateral Cardiovascular: RRR, no significant murmur Musculoskeletal: no edema, pulses present Neurological: non-focal, moves all 4 limbs Psychiatric: normal affect, A&O x 3 Skin: no rash, normal turgor <Denise Byrd - Last Filed: 08/10/18 11:43> Dx/Plan (1) Elevated troponin Code(s): R74.8 - ABNORMAL LEVELS OF OTHER SERUM ENZYMES Status: Acute (2) COPD (chronic obstructive pulmonary disease) Status: Chronic (3) HTN (hypertension) Code(s): I10 - ESSENTIAL (PRIMARY) HYPERTENSION Status: Chronic (4) Hypothyroid Code(s): E03.9 - HYPOTHYROIDISM, UNSPECIFIED Status: Chronic (5) Weakness generalized Code(s): R53.1 - WEAKNESS Status: Chronic (6) BPH (benign prostatic hyperplasia) Code(s): N40.0 - BENIGN PROSTATIC HYPERPLASIA WITHOUT LOWER URINRY TRACT SYMP Status: Chronic - Plan Plan: 83YOM with a PMH of COPD, HTN, & Hypothyroidism 1. Weakness w/ associated cough likely 2/2 acute on chronic COPD exacerbation vs. HAP vs. new onset CHF - Negative procalcitonin therefore more than likely related to his COPD vs. CHF w/ preserved EF; however, no LE edema on exam. - Will consider possible repeat imaging later today. - Awaiting speech recs/assessment to evaluate aspiration risk. - Will continue spiriva & robitussin DM in addition to BITA duonebs. Consider adding inhaled corticosteroid as well due to significant wheezing on exam and persistent productive cough. - Will continue augmentin as well. 2. HTN - Aware, will continue home meds. 3. Hypothyroidism -Aware, will continue home meds. 4. COPD - Aware, patient likely in acute exacerbation. - Will continue PO steroids, Abx as well as spiriva & BITA duonebs. 5. Normocytic anemia - likely 2/2 chronic hypoxemia 2/2 COPD - Will continue to follow w/ QD CBCs. - Would consider inpatient workup as could explain some of patient's weakness. <Denise Byrd - Last Filed: 08/10/18 11:43> Attending Addendum - Attending Addendum Date/Time: 08/10/18 1317 I personally evaluated the patient and discussed the management with Dr. Byrd. I agree with the History, Examination, Assessment and Plan documented above with any addition or exceptions noted below. Patient here with likely COPD exacerbation with hypoxia. He reports that his symptoms are more chronic than we originally thought .Reports he has good days and bad days. Today, he is able to tolerate time off supplemental O2 but does become short of breath. We will obtain walk test for evaluation for need for supplemental O2 in outpatient setting. Continue nebs and will add inhaled steroid in addition to Spiriva for better baseline control. Continue therapy while here. If improving, anticipate discharge in next 1-2 days. <Neri Bautista - Last Filed: 08/10/18 13:19>
[2018-08-10] MEDS: Acetaminophen 325 MG TAB PO SCH ×4 (06:44→23:11)
[2018-08-10] MEDS: Amoxicillin/Potassium Clav 500 MG TAB PO SCH ×3 (06:44→21:12)
[2018-08-10] MEDS ORDERED: Spiriva 18 MCG CAP (Box of 5 Caps) INH SCH (07:00)
[2018-08-10] MEDS ORDERED: Artificial Tears 18 DROP/0.9 ML EA EYE PRN (08:27)
[2018-08-10] MEDS: Aspirin 81 mg Enteric Coated Tablet PO SCH (08:40)
[2018-08-10] MEDS: Enoxaparin Sodium 40 MG/0.4 ML SYRINGE SC SCH (08:40)
[2018-08-10] MEDS: Amlodipine 10 MG TAB PO SCH (08:40)
[2018-08-10] MEDS: predniSONE 20 MG TAB PO SCH (08:40)
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
[2018-08-10] MEDS ORDERED: Lisinopril 10 MG TAB PO SCH (13:00)
[2018-08-10 17:51] VITALS: BMI 24.7
[2018-08-10] MEDS: Budesonide 0.5 MG/2 ML NEB INH SCH (18:36)
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
[2018-08-11] MEDS: Amoxicillin/Potassium Clav 500 MG TAB PO SCH ×2 (05:29→13:51)
[2018-08-11] MEDS: Acetaminophen 325 MG TAB PO SCH ×3 (05:29→17:29)
[2018-08-11 05:37] LABS: #Basophils 0.1 thou/uL (0.0-0.2); #Eosinphils 0.1 thou/uL (0.0-0.7); #Monocytes 0.7 thou/uL (0.11-0.59); #Neutrophils 8.6 thou/uL (1.40-6.50); %Basophils 0.5 % (0.0-1.0); %Eosinophils 0.6 % (0.0-10.0); %Lymphocytes 9.2 % (21.0-51.0); %Monocytes 6.7 % (0.0-10.0); Hemoglobin 11.9 g/dL (14.0-18.0); Mean Corpuscular HGB CONC 32.2 g/dL (32.0-36.0); Mean Corpuscular Hemoglobin 29.6 pg (27.0-31.0); Mean Platelet Volume 6.4 fL (7.4-10.4); Platelet Count 396 thou/uL (130-400); RBC Distribution Width 14.4 % (11.5-14.5); Red Blood Cell (RBC) Count 4.03 mill/uL (4.70-6.10); White Blood Cell (WBC) Count 10.4 thou/uL (4.8-10.8)
[2018-08-11 05:40] LABS: Anion Gap 11 mmol/L (10-20); BUN (Urea Nitrogen) 17 mg/dL (8.4-25.7); Calc. Creatinine Clearance 72 mL/min (70-130); Calcium 9.1 mg/dL (7.8-10.44); Carbon Dioxide 35 mmol/L (23-31); Chloride 98 mmol/L (98-107); Estimated GFR-MDRD 90; Glucose 97 mg/dL (83-110); Potassium 4.4 mmol/L (3.5-5.1); Sodium 140 mmol/L (136-145)
[2018-08-11] MEDS ORDERED: Levothyroxine Sodium 50 MCG TAB PO SCH (06:00)
[2018-08-11] MEDS: Budesonide 0.5 MG/2 ML NEB INH SCH ×2 (06:56→17:59)
[2018-08-11] MEDS ORDERED: Spiriva 18 MCG CAP (Box of 5 Caps) INH SCH (07:00)
[2018-08-11] MEDS ORDERED: Lisinopril 10 MG TAB PO SCH (09:00)
[2018-08-11] MEDS ORDERED: Furosemide 20 MG TAB PO SCH (09:00)
[2018-08-11] MEDS: Enoxaparin Sodium 40 MG/0.4 ML SYRINGE SC SCH (10:26)
[2018-08-11] MEDS: predniSONE 20 MG TAB PO SCH (10:59)
[2018-08-11] MEDS: Amlodipine 10 MG TAB PO SCH (11:00)
[2018-08-11] MEDS: Aspirin 81 mg Enteric Coated Tablet PO SCH (11:00)
--- NOTE | 2018-08-11 12:49 | PQF ---
CLINICAL DOCUMENTATION IMPROVEMENT CLARIFICATION FORM: ICD-10 Updated PLEASE DO AN ADDENDUM TO THE PROGRESS NOTE WITH ANY DOCUMENTATION UPDATES OR ADDITIONS AND CARRY THROUGH TO DC SUMMARY. THANK YOU. DATE: 08/11/18 ATTN: Dr. Byrd/ Attending Dr. Bautista Please exercise your independent, professional judgment in responding to the clarification form. Clinical indicators are provided on the bottom of this form for your review Please check appropriate box(s) to clarify if the following diagnosis has been ruled in or ruled out: SEPSIS 2/2 HOSPITAL ACQUIRED PNA [ ] Ruled in diagnosis [ ] Continue to treat [ ] Resolved [ ] Ruled out diagnosis [ ] Cannot rule out diagnosis [X ] Other diagnosis Aspiration Pneumonia [ ] Unable to determine In addition, please specify: Present on Admission (POA): [ X] Yes [ ] No [ ] Unable to determine For continuity of documentation, please document condition throughout progress notes and discharge summary. Thank You. CLINICAL INDICATORS - SIGNS / SYMPTOMS / LABS H&P 08/07: SEPSIS 2/2 HOSPITAL ACQUIRED PNA -SIRS CRITERIA MET BY TACHYPNEA AND LEUKOCYTOSIS ATTENDING PN 08/09: PT'S CT WAS CONCERNING FOR AN ASPIRATION PNEUMONIA. PULMONOLOGY PN 08/10: COPD EXACERBATION. REVIEWED HIS CHEST CT, DOES HAVE AN INFILTRATE AT HIS RIGHT BASE & IS CURRENTLY BEING TREATED WITH AUGMENTIN RISKS: H&P 08/07: RECENTLY HAD CHOLECYSTECTOMY AND HERNIA REPAIR 08/01/18. HX OF COPD. TREATMENT: ORDER 08/07: VANCOMYCIN IV. DC'D 08/08 CPOE 08/07: ZOSYN IV. DC'D 08/08. CPOE 08/08: AUGMENTIN PO Q 8 HR FOR COPD EXACERBATION. Thank you, Carrie (This form is maintained as a part of the permanent medical record) 2014 [employer]. All Rights Reserved Carrie Gallego RN, BSN [email or web address] Office: [phone] [facility]
--- NOTE | 2018-08-11 13:16 | PRG ---
DATE OF SERVICE: 08/11/2018 This is attending progress note for the above. For full history and physical for full progress note details, please see Dr. Denise Byrd's written progress note. SUBJECTIVE: In brief, this patient is an 83-year-old gentleman with history of COPD who was original ly admitted 4 days ago due to weakness, decreased p.o. intake and cough. The patient was diagnosed w ith COPD exacerbation at that time and has had some improvement. He has been given DuoNeb treatments as well as now inhaled steroids in addition to oral steroids. The patient reports this morning he i s feeling somewhat better, though still has intermittent shortness of breath. He does endorse that t his is not as acute as originally thought and that he has good days and bad days at home. The patien t this morning is questioning when he can go home, but has not got out of bed yet to see if he feels to up to it. OBJECTIVE: VITAL SIGNS: Overall stable. Most recent vital signs show temperature 97.4, pulse 80, respirations 14, oxygen saturation 99% on 2 liters. ASSESSMENT: Our goal for the patient today is to ambulate around the room and see how he would feel at home. Dr. Bryan has actually seen the patient and follows him in the outpatient setting who recom mended continued long taper for this patient and reports that he is off his pulmonary baseline for hi m. We will see the patient feels this afternoon if he is feeling well and we discussed the case with Dr. Bryan, consider discharge home at that time as outpatient oxygen therapies in the process of benny ng set up. The patient feels like he needs another day. We will allow him that. As above, we will discuss this patient's status with Dr. Bryan prior to discharge.
--- NOTE | 2018-08-11 13:39 | PQF ---
CLINICAL DOCUMENTATION IMPROVEMENT CLARIFICATION FORM: ICD-10 Updated PLEASE DO AN ADDENDUM TO THE PROGRESS NOTE WITH ANY DOCUMENTATION UPDATES OR ADDITIONS AND CARRY THROUGH TO DC SUMMARY. THANK YOU. DATE: 08/11/18 ATTN: Dr. Byrd/ Attending Dr. Bautista Please exercise your independent, professional judgment in responding to the clarification form. Clinical indicators are provided on the bottom of this form for your review Please check appropriate box(s): [ ] Acute Respiratory Failure: [ ] with Hypoxia [ ] with Hypercapnia [ X ] Acute On Chronic Respiratory Failure: [ X] with Hypoxia [ ] with Hypercapnia [ ] Acute Respiratory Failure due to: [ ] Chronic Respiratory Failure only [ ] with Hypoxia [ ] with Hypercapnia [ ] Other diagnosis [ ] Unable to determine In addition, please specify: Present on Admission (POA): [X ] Yes [ ] No [ ] Unable to determine For continuity of documentation, please document condition throughout progress notes and discharge summary. Thank You. CLINICAL INDICATORS - SIGNS / SYMPTOMS / LABS NURSING NOTE 08/10 1218: WALKING O2 DONE. PT AT 84 ON ROOM AIR AT REST, DROPS TO 82 WHEN AMBULATING. ATTENDING PN 08/10: PT HERE WITH LIKELY COPD EXACERBATION WITH HYPOXIA. RISKS: H&P 08/07: RECENTLY HAD CHOLECYSTECTOMY AND HERNIA REPAIR 08/01/18. HX OF COPD. PN 08/09: ATTENDING: CT CONCERNING FOR AN ASPIRATION PNEUMONIA. ECHO REVIEWED SHOWING DIASTOLIC DYSFUNCTION. TREATMENT: ORDER 08/08: RESP: O2 TO KEEP SATS 92% CPOE 08/07: DUONEB Q6 HR Thank you, Carrie (This form is maintained as a part of the permanent medical record) 2015 [employer]. All Rights Reserved Carrie Gallego RN, BSN [email or web address] Office: [phone] [facility]
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
--- NOTE | 2018-08-11 17:38 | PRG ---
DATE OF SERVICE: 08/11/2018 Mr. Parker is feeling better. He is now close to back to his baseline. PHYSICAL EXAMINATION: VITAL SIGNS: He is afebrile, heart rate 80, respiratory rate 14, oximetry is 98 % on 2 liters, blood pressure 155/68. LUNGS: Still remarkable for diffuse wheezes, although he is little better in my opinion compared to yesterday. LABORATORY DATA: White count 10.4, hemoglobin 11.9, platelets 396. Electrolytes are unremarkable. Room air oximetry is 90% today. IMPRESSION: Chronic obstructive pulmonary disease exacerbation, slowly improving gas exchange, really probably would not need oxygen at discharge based on his resting saturations. We will continue to follow. VILMA
[2018-08-11 19:45] VITALS: BP 144/68; TEMP 98.4
--- NOTE | 2018-08-12 08:10 | DIS-2 ---
DATE OF ADMISSION: 08/07/2018 DATE OF DISCHARGE: 08/11/2018 RESIDENT: Dr. Denise Byrd ADMITTING ATTENDING: Dr. Mohini Merrill DISCHARGE ATTENDING: Dr. Neri Bautista CONSULTATIONS: 1. Cardiology, Dr. Rojas. 2. Pulmonology, Dr. Gil Bryan. PROCEDURES: 1. Chest x-ray significant for pleural parenchymal changes in the right base, probably representing some right lower lobe pneumonia and a small pleural effusion. 2. Chest CT significant for a right lower lobe infiltrate in a position sometimes seen with aspiration and a small right pleural effusion. PRIMARY DIAGNOSES: 1. Pneumonia. 2. Acute on chronic obstructive pulmonary disease exacerbation. 3. Elevated troponins. SECONDARY DIAGNOSES: 1. Hypertension. 2. Hypothyroidism. 3. Chronic obstructive pulmonary disease. 4. Thoracic aortic aneurysm. DISCHARGE MEDICATIONS: 1. Symbicort 160/4.5 mg 2 puffs inhaled b.i.d. 2. Ventolin HFA 2 puffs inhaled p.r.n. 3. Pantoprazole 40 mg p.o. q.a.m. 4. Synthroid 50 mcg p.o. q.a.m. 5. Lasix 10 mg p.o. daily. 6. DuoNeb 3 mL nebulized q.6h. p.r.n. 7. Augmentin 500 mg p.o. q.8 hours for 9 days. 8. Robitussin-DM 15 mL p.o. q.4h. p.r.n. 9. Ibuprofen 600 mg p.o. q.8 hours p.r.n. 10. Prednisone 10 mg tab Dosepak 10 mg p.o. as directed for 21 days. DISCONTINUED MEDICATIONS: None. HOSPITAL COURSE: The patient is an 83-year-old male with a past medical history significant for COPD, hypertension and hypothyroidism who presented to the ED with a chief complaint of weakness w/ associated decreased PO intake that had been ongoing since a cholecystectomy and hernia repair he had done on 08/01/2018. On presentation to the ED he was noted to have a blood pressure of 164/85, a respiratory rate of 30 and was satting 92% on room air. A chest x-ray was obtained that was significant for a possible right lower lobe pneumonia. The patient was also noted to have an elevated white blood count of 12.6 and was given 1 gram of vancomycin as well as zosyn & levaquin in the ED for presumed pneumonia. Blood cultures were also drawn as were strep and legionella urine antigen and the patient was admitted to the floor for treatment of an a suspected acute COPD exacerbation likely 2/2 PNA. Upon admission to the floor, the patient was continued on IV vancomycin, Zosyn and Levaquin. The following day a chest CT was ordered to rule out or better demonstrate a possible right lower lobe infiltrate as the patient's procalcitonin was negative in supporting the diagnosis of an infection. The chest CT confirmed the pneumonia diagnosis and the patient's antibiotics were tapered to p.o. Augmentin due to concern of prolonged QT interval on his EKG. The patient was continued on p.o. Augmentin for the remainder of his hospital stay and continued to improve. Regarding the patient's elevated troponin, initial troponins drawn in the ED were indeterminately elevated at 0.168. These were trended x3 and noted to bump up slightly to 0.172 and then decreased to 0.175. However, due to concern for NSTEMI, Cardiology was consulted. They saw the patient the following morning and noted some nonspecific changes including a T-wave inversion in the anterior leads as well as some decreased R-waves in V1 through V4 on ECG However , they ruled the elevated troponins to most likely be due to demand ischemia associated with his pneumonia and recent dehydration due to decreased p.o. intake and recommended possibly pursuing stress testing once the patient became more stable. Cardiology continued to follow him for the duration of his hospital stay and ultimately recommended outpatient cardiac followup. We did not pursue any further testing regarding his troponins. We noted the EKG remained unchanged for the remainder of his hospital stay. Regarding the patient's acute on chronic COPD exacerbation, the patient reported not requiring any oxygen at home; however, he was requiring 2 liters via nasal cannula in order to adequately maintain his oxygen saturation above 90 for the duration of his hospital stay. All of his home medications were resumed with the addition of an inhaled corticosteroid, Pulmicort, as well as p.o. Augmentin for presumed pneumonia which likely triggered his exacerbation, and 40 mg of p.o. prednisone for 4 days. The patient completed a walk test on 08/10/2018 and was noted to have a significant decrease in his O2 saturation upon walking down to 82%. It was also noted that his oxygen levels were only 84 % on room air at rest during this time. It was therefore determined that the patient would require oxygen at home upon discharge. Case Management was therefore consulted and the patient was referred to outpatient cardiac rehab and was sent home with home oxygen upon discharge. Of note, the patient's outpatient evidence technician, Dr. Gil Bryan, came and evaluated the patient in the hospital on 08/10/2018 and agreed with the diagnosis of a COPD exacerbation as well as a likely right lower lobe pneumonia. Dr. Bryan recommended continuing on a slow steroid taper upon discharge rather than a 4-day course of prednisone and to continue with the treatment of the pneumonia. By the date of discharge, the patient was cleared for discharge home by Dr. Bryan with recommendations for close followup and a referral to cardiac rehab. DISPOSITION: Stable. DISCHARGE INSTRUCTIONS: 1. Location: Home with home health and a referral for cardiac rehabilitation. 2. Diet: Heart healthy diet. 3. Activity: As tolerated. No restrictions. 4. Followup: The patient was instructed to follow up with his primary care provider, Dr. Darling within a week following discharge as well as his evidence technician, Dr. Gil Bryan, within 2 weeks following discharge. VILMA
--- NOTE | 2018-08-22 12:17 | EKG ---
Test Reason : Blood Pressure : / mmHG Vent. Rate : 077 BPM Atrial Rate : 077 BPM P-R Int : 162 ms QRS Dur : 102 ms QT Int : 416 ms P-R-T Axes : 046 026 066 degrees QTc Int : 470 ms Normal sinus rhythm Possible Left atrial enlargement T wave abnormality, consider anterior ischemia Prolonged QT Abnormal ECG Confirmed by VANITA HOLLEY ([id number]), graphics editor TYLOR KRAUSE ([id number]) on 08/22/2018 12:17:14 PM Referred By: Confirmed By:VANITA HOLLEY
== END 2018-08-11 19:59 | disposition home health service (06) | DRG 177 ==
LOC: ERS 12:24 → 2NO 15:48
PROVIDERS: ADMIT Family Medicine; ATTEND Family Medicine
DX: J69.0 Pneumonitis due to inhalation of food and vomit (principal); J96.21 Acute and chronic respiratory failure with hypoxia; J44.1 Chronic obstructive pulmonary disease with (acute) exacerbation; I24.8 Other forms of acute ischemic heart disease; J44.0 Chronic obstructive pulmonary disease with (acute) lower respiratory infection; Z87.820 Personal history of traumatic brain injury; E03.9 Hypothyroidism, unspecified; R62.7 Adult failure to thrive; E86.0 Dehydration; R94.31 Abnormal electrocardiogram [ECG] [EKG]; D64.9 Anemia, unspecified; I10 Essential (primary) hypertension; N40.0 Benign prostatic hyperplasia without lower urinary tract symptoms; Z87.891 Personal history of nicotine dependence; Z90.49 Acquired absence of other specified parts of digestive tract
CPT/HCPCS: 36415; 71045; 71260; 80048; 80053; 80061; 80202; 81003; 81015; 82553; 83605; 83880; 84145; 84443; 84484; 85025; 87040; 87899; 93005; 93010; 93306; 93798; 94640; 96365; 96367; 96375; A4216; G8987-GO-CI; G8988-GO-CI; G8989-GO-CI; G8996-GN-CJ; G8996-GN-CK; G8997-GN-CI; G8997-GN-CK; J1650; J1956; J2543; J3370; J7050; J7506; J7620; J7626

== ENCOUNTER 2018-08-25 13:39 | Outpatient (CLI) | payer MEDICARE ==
--- NOTE | 2018-08-25 15:22 | RAD ---
PA AND LATERAL CHEST: History: Dyspnea. FINDINGS/IMPRESSION: Comparison made with exam of 08-07-18. The heart size is stable. Lungs are expanded. There is a small to moderate right sided hydropneumotho rax. Infiltrate in the right lower lobe noted on the previous exam shows interval improvement. POS: [facility]
== END 2018-08-25 13:40 | disposition home or self-care (01) ==
LOC: RAD 13:39
PROVIDERS: ATTEND Internal Medicine Critical Care Medicine
DX: R06.00 Dyspnea, unspecified (principal); R91.8 Other nonspecific abnormal finding of lung field; J94.8 Other specified pleural conditions
CPT/HCPCS: 71046

== ENCOUNTER 2018-09-29 12:50 | Outpatient (CLI) | payer MEDICARE ==
--- NOTE | 2018-09-29 14:07 | RAD ---
CHEST TWO VIEWS: HISTORY: An 83-year-old male with a history of dyspnea. COMPARISON: 08/25/2018 FINDINGS: The previously noted right-sided hydropneumothorax has resolved. There are increased linear and inte rstitial markings in both lungs, particularly the perihilar regions, as well as the lower lobes, grea ter on the right side, with some developing right pleural fluid or pleural thickening. Numerous heal ed right rib fractures. IMPRESSION: 1. Resolution of the previously noted right-sided hydropneumothorax, with some progressive right-yue ed pleural fluid or pleural thickening, with persistent but probably overall stable increased linear and interstitial markings in both bases, worse in the right base. 2. Stable bilateral chronic lung changes, including multiple right rib fractures. 3. Atherosclerosis of the aorta with ectasia. POS: [facility]
== END 2018-09-29 12:51 | disposition home or self-care (01) ==
LOC: RAD 12:50
PROVIDERS: ATTEND Internal Medicine Critical Care Medicine
DX: R06.00 Dyspnea, unspecified (principal); I70.0 Atherosclerosis of aorta; I77.819 Aortic ectasia, unspecified site
CPT/HCPCS: 71046

== ENCOUNTER 2019-01-19 08:19 | Outpatient (CLI) | payer MEDICARE ==
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
== END 2019-01-19 08:20 | disposition home or self-care (01) ==
LOC: BICMRI 08:19
PROVIDERS: ATTEND Orthopaedic Surgery Hand Surgery
DX: S63.591D Other specified sprain of right wrist, subsequent encounter (principal); M92.211 Osteochondrosis (juvenile) of carpal lunate [Kienbock], right hand; M65.9 Synovitis and tenosynovitis, unspecified; S66.812A Strain of other specified muscles, fascia and tendons at wrist and hand level, left hand, initial encounter; Z98.890 Other specified postprocedural states

== ENCOUNTER 2019-05-03 12:30 | Inpatient (IN) | payer MEDICARE ==
[2019-04-30 12:15] VITALS: BMI 25.8
[2019-05-03] MEDS ORDERED: Midazolam HCl 2 mg/2 ml Vial ONE ×2 (14:05→16:29)
[2019-05-03] MEDS ORDERED: Fentanyl 100 MCG/2 ML VIAL ONE ×2 (14:05→16:29)
[2019-05-03] MEDS ORDERED: Bupivacaine HCl 0.5%/Epinephrine 1:200,000/PF 30 ml Vial ONE (15:19)
[2019-05-03] MEDS ORDERED: PROPOFOL 200 MG/20 ML VIAL ONE (16:09)
[2019-05-03] MEDS ORDERED: Dexamethasone 20 MG/5 ML VIAL ONE (16:09)
[2019-05-03] MEDS ORDERED: Thrombin 5000 UNITS/5 ML VIAL ONE (16:24)
[2019-05-03] MEDS ORDERED: Bacitracin Zinc Ointment 30 gm TUBE ONE (16:24)
[2019-05-03] MEDS ORDERED: Propofol 500 MG/50 ML VIAL ONE (16:30)
[2019-05-03] MEDS ORDERED: Ketamine 50 MG/ML (10ML VIAL) ONE (16:30)
[2019-05-03] MEDS ORDERED: Sodium Chloride 0.9% 0 ML ONE (16:38)
[2019-05-03] MEDS ORDERED: EPINEPHrine 1 MG/ML AMP ONE (17:30)
[2019-05-03] MEDS ORDERED: Bupivacaine PF 0.5% 30 ML VIAL ONE (17:54)
--- NOTE | 2019-05-03 19:54 | RAD ---
Exam: XR Wrist Rt 2 View HISTORY: Postoperative COMPARISON: 02/10/2018 FINDINGS/IMPRESSION: 5 intraoperative fluoroscopic images right wrist are submitted for interpretation. Postsurgical change of the wrist are again seen. There is evidence of hardware removal with removal o f the 2 screws previously seen in the distal right radial metaphysis. The remainder of the postsurgical changes are similar to prior intraoperative fluoroscopic images. Correlation with intrao perative findings is recommended.
[2019-05-03] MEDS ORDERED: Ondansetron HCl/PF 4 MG/2 ML Vial IVP PRN (19:55)
[2019-05-03] MEDS ORDERED: Promethazine HCl 25 MG/ML VIAL IM PRN ×2 (19:55→20:47)
[2019-05-03] MEDS ORDERED: Promethazine HCl 25 MG/ML VIAL SLOW IVP PRN (19:55)
[2019-05-03] MEDS ORDERED: Acetaminophen 325 MG TAB PO PRN (20:47)
[2019-05-03] MEDS ORDERED: traMADol HCl 50 MG TAB PO PRN (20:47)
[2019-05-03] MEDS ORDERED: HYDROcodone/Acetaminophen 5/325 mg Tablet PO PRN (20:47)
[2019-05-03] MEDS ORDERED: Ondansetron PF 4 MG/2 ML Vial IV PRN (20:47)
[2019-05-03] MEDS ORDERED: Morphine 2 MG/ML SYRINGE IVP PRN (20:47)
[2019-05-03] MEDS ORDERED: RENALLY ADJUST ALL ANTIBIOTICS FS SCH (21:00)
[2019-05-03] MEDS: Aspirin 81 mg Enteric Coated Tablet PO SCH (21:51)
[2019-05-03] MEDS ORDERED: cloNIDine 0.1 MG TAB PO PRN (22:22)
[2019-05-03] MEDS ORDERED: TETANUS AND DIPHTHERIA TOX/PF 0.5 ML DISP.SYRIN IM SCH (23:00)
[2019-05-03] MEDS: Vancomycin HCl 1 GM in Premix Bag 1 BAG IVPB SCH (23:58)
--- NOTE | 2019-05-04 01:42 | OP ---
DATE OF PROCEDURE: 05/03/2019 PREOPERATIVE DIAGNOSES: 1. Triangular fibrocartilage complex tear, central, large, right wrist. 2. Possible ulnocarpal impingement with ulnar positive wrist. 3. 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 4. Tenosynovitis, first dorsal compartment with pain underneath the screws at the radial styloid. 5. Previous transscaphoid perilunate dislocation with open reduction internal fixation of scaphoid and repair of the ligamentous damage almost 18 months ago. POSTOPERATIVE DIAGNOSES: 1. 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 2. 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 3. Tenosynovitis, first dorsal compartment. 4. Painful deep screws underneath the tenosynovium, first dorsal compartment, right distal radius. 5. 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 PROCEDURES PERFORMED: 1. Diagnostic arthroscopy. 2. Right wrist mini open triangular fibrocartilage complex debridement using a shaver, open technique. 3. Open removal, screws, first dorsal compartment. 4. Synovectomy, first dorsal compartment, extensor tendons. 5. Radial capsule plication using von Mondragon technique with 2 rows each of 4 heavy Ethibond sutures for plication. 6. Application of splint, long-arm in radial deviation of 15 degrees and slight extension. 7. C-arm supervision as well throughout the procedure. ITEMS REMOVED: 3.0 cannulated screws. BLOOD LOSS: Less than 25 mL. TOURNIQUET TIME: 69 minutes plus 4 minutes, total 73. FINDINGS: 1. No ulnar to lunate impingement, but ulnar proximal carpal row translation, narrowing space leading to apparent impingement over the TFCC tear, which was 35-40% and degenerative. 2. Intracapsular 2 mm metal fragment possibly old K-wire piece, but not visualized via scope or with open technique, but seen in the very palmar capsule outside the radial bone itself in the radiocarpal joint, but in the capsule. Therefore, at worst intracapsular, at best extra-articular and intracapsular. DESCRIPTION OF PROCEDURE: After successful anesthesia, which was a block because the patient has severe pulmonary disease and there was worried that any type of intubation or heavy sedation might cause him to be unintubatable, so we would not intubate this patient today. He had a block and this gave him initially what appeared to be complete relief, but with deep bone work, like removing the screws, he had pain, so it was obvious that he may not tolerate an open Rayhack osteotomy with fixation with plate and screws. First, we established the wrist portals, did a panoramic of his wrist. Had difficulty visualization because of bleeding, so we removed the scope, made a small incision through the fifth dorsal compartment, released the retinaculum, moving the tendon radially and then made a V-shaped incision not only to also relax the ulnar side of the wrist joint and from here visualize a tear. As with the scope, did not see the metal fragment inside, but performed the shaving of the very frayed end and the tear was now extended from approximately 35% to 45% because of the shaving, but it was a smooth edge. Here, we could visualize the ulna, it was 3 mm or deeper underneath the center of this tear and there was no evidence of gross osteochondral lesion on the lunate or triquetrum and there was no lunate triquetrum instability. We then removed the arthroscope. It was decided that the screws needed to be removed and at the same time we used this approach as part of our incisions for the capsule plication. The open incision used for the ulnar carpal approach also allowed us to visualize the interval between the second and third dorsal compartments, which would also be 1 of the rows of the plication. We then released the first dorsal compartment using the same zigzag incision used to place the screws, found markedly thickened tenosynovium, so performed tenosynovectomy especially abductor pollicis longus. There was no tear. We then were able to find the screw using the C-arm, they were buried approximately 1 mm and removed them. We then used the flap of the capsule underneath the retinaculum to create a 4-suture plication. This was done using von Mondragon method with heavy Ethibond suture in a mattress pattern under a used to pinch the capsule. On the other side of the second tendons, we did the same type plication using 4 individual sutures. We held the wrist for remainder of procedure in radial deviation by 10 degrees and slight dorsiflexion. We have now released the tourniquet. We obtained hemostasis. We loosely closed the ulnar capsule, advancing the weave with #2 Vicryl undyed. We then finished closing the retinaculum with 2-0 Vicryl, made sure the plication sutures were intact and they were, obtained hemostasis with the tourniquet deflated and then closed the primary wound of the first dorsal compartment and over the zigzag dorsal radial ulnar approach using interrupted 4-0 Monocryl for the dermal closure, epidermal closure with interrupted 4-0 nylon mattress pattern. Bulky dressing was applied and then a sugar-tong splint in again 10-15 degrees of radial deviation and 15 degrees of dorsiflexion. Job ID: [id number]
[2019-05-04 04:33] LABS: Anion Gap 11 mmol/L (10-20); BUN (Urea Nitrogen) 22 mg/dL (8.4-25.7); Calc. Creatinine Clearance 52 mL/min (70-130); Calcium 8.9 mg/dL (7.8-10.44); Carbon Dioxide 30 mmol/L (23-31); Chloride 102 mmol/L (98-107); Estimated GFR-MDRD 62; Glucose 135 mg/dL (83-110); Potassium 4.9 mmol/L (3.5-5.1); Sodium 138 mmol/L (136-145)
[2019-05-04] MEDS: Aspirin 81 mg Enteric Coated Tablet PO SCH (10:18)
[2019-05-04 12:23] VITALS: BP 161/83; TEMP 97.6
[2019-05-04] MEDS: Vancomycin HCl 1 GM in Premix Bag 1 BAG IVPB SCH (12:32)
[2019-05-04] MEDS ORDERED: Sodium Chloride 0.9% 10 ML ONE (14:09)
== END 2019-05-04 15:47 | disposition home or self-care (01) | DRG 501 ==
LOC: SDC 12:30 → 3SE 21:31 → OBSVTOIN 21:31
PROVIDERS: ADMIT Orthopaedic Surgery Hand Surgery; ATTEND Orthopaedic Surgery Hand Surgery
PROC: 0LQ50ZZ Repair Right Lower Arm and Wrist Tendon, Open Approach (ICD-10-PCS; principal; 2019-05-03)
PROC: 0RPN04Z Removal of Internal Fixation Device from Right Wrist Joint, Open Approach (ICD-10-PCS; 2019-05-03)
PROC: 0LB50ZZ Excision of Right Lower Arm and Wrist Tendon, Open Approach (ICD-10-PCS; 2019-05-03)
PROC: 0RJN4ZZ Inspection of Right Wrist Joint, Percutaneous Endoscopic Approach (ICD-10-PCS; 2019-05-03)
DX: M65.831 Other synovitis and tenosynovitis, right forearm (principal); T84.84XA Pain due to internal orthopedic prosthetic devices, implants and grafts, initial encounter; S63.591A Other specified sprain of right wrist, initial encounter; M25.839 Other specified joint disorders, unspecified wrist; M19.031 Primary osteoarthritis, right wrist; J44.9 Chronic obstructive pulmonary disease, unspecified; Y83.1 Surgical operation with implant of artificial internal device as the cause of abnormal reaction of the patient, or of later complication, without mention of misadventure at the time of the procedure
CPT/HCPCS: 36415; 76000; 80048; J0171; J0670; J0690; J1100; J2250; J2704; J3010; J3370; J3490; J7620; S0020

== ENCOUNTER 2019-10-19 11:05 | Outpatient (CLI) | payer MEDICARE ==
--- NOTE | 2019-10-19 11:22 | RAD ---
XR Chest Pa Lat @ [facility] History: Dyspnea Comparison: Radiograph 2018 Findings: Right lower lobe parenchymal opacity is similar as well as the peripheral pleural thickenin g. Slight interval size increase of layering right effusion. Impression: Slight interval size increase right layering pleural effusion.
== END 2019-10-19 11:06 | disposition home or self-care (01) ==
LOC: RAD 11:05
PROVIDERS: ATTEND Internal Medicine Critical Care Medicine
DX: R06.00 Dyspnea, unspecified (principal); J90 Pleural effusion, not elsewhere classified
CPT/HCPCS: 71046

== ENCOUNTER 2019-12-06 08:17 | Outpatient (CLI) | payer MEDICARE, OTHER ==
--- NOTE | 2019-12-06 08:35 | RAD ---
CHEST 2 VIEWS: COMPARISON: 10/19/2019. HISTORY: Dyspnea. FINDINGS: Normal cardiac silhouette. Atherosclerosis of the aorta. Persistent opacification of the right lung base which obscures the right heart border and right hemid iaphragm. Stable pleural and parenchymal changes in the right lung base. Stable hyperinflation. No pneumothorax. IMPRESSION: 1. Chronic obstructive pulmonary disease. 2. Atherosclerosis. 3. Stable pleural and parenchymal changes in the right lung base. Transcribed Date/Time: 12/06/2019 9:12 AM
== END 2019-12-06 08:18 | disposition home or self-care (01) ==
LOC: RAD 08:17
PROVIDERS: ATTEND Internal Medicine Critical Care Medicine
DX: R06.00 Dyspnea, unspecified (principal); J44.9 Chronic obstructive pulmonary disease, unspecified; I70.0 Atherosclerosis of aorta; R91.8 Other nonspecific abnormal finding of lung field
CPT/HCPCS: 71046

== ENCOUNTER 2020-05-25 18:28 | Emergency (ER) | payer MEDICARE, OTHER ==
[2020-05-25] MEDS ORDERED: Lidocaine 1% w/Epinephrine 1:100K 20 ML VIAL ONE (19:49)
[2020-05-25] MEDS ORDERED: Adacel (T-DAP) 0.5 ML SYRINGE ONE (20:45)
--- NOTE | 2020-05-25 21:04 | CT ---
CT OF BRAIN PERFORMED WITHOUT CONTRAST ENHANCEMENT: 05/25/20 HISTORY: Head injury. Patient is on blood thinners. There is generalized ventricular and sulcal prominence with decreased attenuation to the periventricu lar white matter consistent with chronic white matter change. There are no signs of intracerebral hem orrhage or extra-axial fluid collections. Mastoid air cells are clear. Facial bone findings will be d iscussed in a subsequent report. IMPRESSION: No acute intracranial abnormalities. POS: [facility]
--- NOTE | 2020-05-25 21:09 | CT ---
CT OF FACIAL BONES PERFORMED WITHOUT CONTRAST ENHANCEMENT: 05/25/20 HISTORY: Facial trauma. The nasal bone and zygomatic arches are intact. There is an air fluid level within the left maxillary sinus. This is associated with a minimally depr essed segmental fracture involving the anterior maxillary wall. This is depressed by approximately 4 mm. The right maxillary sinus is normal in appearance other than some minimal mucosal change. No orbi sherman fracture is appreciated. There is a very subtle irregularity to the posterior wall of the left ma xilla which could represent a minimal buckle injury in this area. The mandible appears intact and condyles are in normal position. IMPRESSION: Minimally depressed anterior wall left maxillary sinus fracture with an air fluid level in the left m axillary sinus. There is subtle buckling to the cortex of the posterior wall of the left maxilla. POS: [facility]
--- NOTE | 2020-05-25 21:20 | CT ---
CT OF CHEST PERFORMED WITHOUT CONTRAST ENHANCEMENT: 05/25/20 HISTORY: Patient fell when electric gate closed on him with chest pain. The patient has rib pain and facial sw elling. COMPARISON: A chest x-ray of 01/19/20. Also review is made of a 08/18/18 CT examination. There is a small slightly loculated appearing right pleural effusion. It is actually less prominent than on the prior examination. There is what appear t o be some chronic atelectatic change in the right base with what is probably more of an area of round ed atelectasis. There is a newer pleural based mass-like area also seen in the right lower lobe. This measures approximately 2.6 cm in size. This is a different appearance than on the prior examination. It may represent a progression of scarring but a pleural based mass is not definitely excluded altho ugh would be considered less likely. There is no evidence of pneumothorax. The thoracic aorta is normal in caliber. No mediastinal hematoma. There are several bilateral rib fractures most of which are chronic but there are acute appearing lef t anterior 4th, 5th, and 6th rib fractures as well as a 7th rib fracture. I do not appreciate any def inite acute right sided rib fractures. The visualized liver parenchyma shows no focal findings. A left renal stent is incidentally seen. IMPRESSION: 1. Acute appearing left anterior 4th through 7th anterior rib fractures which are nondisplaced. No pneumothorax. 2. Severe emphysematous lung change with chronic pleural and parenchymal changes in the right ba se. In addition, there is a newer pleural based mass-like area in the right mid lung field also in th e right base that is new as compared to the previous CT study in 2018 although I would favor that thi s represents progression of some chronic pleural change. Changes are in the right base but actually w ithin the right middle lobe. A pleural based mass is not excluded as a possibility and follow-up ches t CT would be required for assessment. Alternatively, a PET scan may be helpful in assessment. 3. No evidence of any vertebral body compression fracture. There is an old sternal fracture pres ent. POS: [facility]
[2020-05-25] MEDS ORDERED: HYDROcodone/Acetaminophen 5/325 mg Tablet ONE (21:31)
[2020-05-25] MEDS ORDERED: Ketorolac Tromethamine 30 MG/ML VIAL ONE (21:31)
[2020-05-25] MEDS ORDERED: guaiFENesin 200 MG TAB PO SCH (22:00)
== END 2020-05-25 21:46 | disposition home or self-care (01) ==
LOC: ERS 18:28
DX: S22.42XA Multiple fractures of ribs, left side, initial encounter for closed fracture (principal); S02.40DA Maxillary fracture, left side, initial encounter for closed fracture; S01.511A Laceration without foreign body of lip, initial encounter; N40.0 Benign prostatic hyperplasia without lower urinary tract symptoms; I10 Essential (primary) hypertension; J44.9 Chronic obstructive pulmonary disease, unspecified; Z23 Encounter for immunization; Z79.01 Long term (current) use of anticoagulants; W19.XXXA Unspecified fall, initial encounter
CPT/HCPCS: 12011; 70450; 70486; 71250; 90471; 90715; 96372; J1885

== ENCOUNTER 2020-08-10 09:00 | Outpatient (CLI) | payer MEDICARE ==
--- NOTE | 2020-08-10 10:09 | CT ---
CT chest noncontrast HISTORY: Lung nodule. Follow-up. COMPARISON: 05/25/2020. FINDINGS: Right pleural fluid, including a small amount loculated along the right lateral chest wall, is similar in appearance to the prior study. The 4.5 cm pleural-based parenchymal consolidation at the right posterolateral lung base is stable. Within the lateral segment right middle lobe, a peripheral, somewhat wedge-shaped 2.7 cm focus of par enchymal opacity is stable. Small focus of internal dystrophic calcification now better demonstrated. No significant change. Pulmonary hyperinflation, peripheral enlargement of the pulmonary arteries, and scattered emphysemato us changes are similar in appearance. Calcification is present throughout the arterial structures. Lack of IV contrast limits evaluation th e soft tissues. No mediastinal adenopathy is apparent. Old fractures of the sternum and ribs again demonstrated. IMPRESSION : Stable radiographic appearance of the areas of parenchymal abnormality involving the right middle and lower lobes. The stability and configuration have the appearance of old areas of inflammation, infarct, or injury rather than a neoplastic process. Severe emphysema, right pleural fluid, and other chronic-type findings are stable. Atherosclerosis.
== END 2020-08-10 09:01 | disposition home or self-care (01) ==
LOC: BICCT 09:00
PROVIDERS: ATTEND Internal Medicine Critical Care Medicine
DX: R91.1 Solitary pulmonary nodule (principal); J98.4 Other disorders of lung
CPT/HCPCS: 71250

== ENCOUNTER 2021-01-02 08:42 | Outpatient (CLI) | payer MEDICARE ==
--- NOTE | 2021-01-02 11:06 | CT ---
CT OF CHEST PERFORMED WITHOUT CONTRAST ENHANCEMENT: HISTORY: Followup pulmonary nodule. COMPARISON: 08/10/2020 exam. Also, review is made of a 08/08/2018 and 05/25/2020 studies. FINDINGS: There are severe emphysematous lung changes seen. A small pleural-based area of nodularity axial dorothea ge 74 in the left upper lobe is stable in appearance. This measures in the 8-9 mm range. Within the right lung there are 2 pleural-based areas of nodularity on the oldest 2018 CT examination 3.6 cm x approximately 2.3 cm in dimension. It has not appreciably changed since the [address] studies. There is loculated fluid along the right lateral chest wall. There is a 2nd pleural-bas ed area of nodularity which is seen within the right middle lobe. It is also stable in size as maura red to those most recently prior examinations measuring approximately 2.8 cm in size. This is not fe lt to be a significant change. This area was not present on the 2018 exam. Old bilateral rib fractures are seen. The thoracic aorta is normal in caliber. I do not appreciate any significant mediastinal or hilar ad enopathy on this noncontrast exam. Visualized liver parenchyma shows no focal findings. No adrenal mass is identified. There are arthritic changes of the spine. IMPRESSION: Stable appearance to 2 pleural-based areas of nodularity, one within the right middle lobe and one in the right lower lobe associated with some loculated fluid. These changes are not significantly diff erent than the 08/10/2020 or 05/25/2020 CT studies. POS: [facility]
== END 2021-01-02 08:43 | disposition home or self-care (01) ==
LOC: BICCT 08:42
PROVIDERS: ATTEND Internal Medicine Critical Care Medicine
DX: R91.8 Other nonspecific abnormal finding of lung field (principal)
CPT/HCPCS: 71250

== ENCOUNTER 2023-03-17 08:58 | Outpatient (CLI) | payer MEDICARE | END 2023-03-17 08:59 | disposition home or self-care (01) | LOC: RAD 08:58 | PROVIDERS: ATTEND Internal Medicine Critical Care Medicine | DX: R06.00 Dyspnea, unspecified (principal); J98.4 Other disorders of lung | CPT/HCPCS: 71046 ==